=== PATIENT | male | born 1970 | race Caucasian/White ===

== ENCOUNTER 2017-03-03 19:18 | Inpatient (IN) | payer MEDICARE, OTHER ==
[~2017-03-03] VITALS: Ht 167.6 cm; Wt 105.5 kg
[~2017-03-03 19:18] MED LIST: ACET325T45 PO; CALC667T2 PO; CARV12.598 PO; CLON0.2T5 PO; DIPH1TAB25 PO; FOSR500 PO; LABE100T3 PO; NEPH PO; NOV SC; SEVE800T10 PO
[2017-03-03 20:29] LABS: ADD SCAN DIFF NO
[2017-03-03 20:30] LABS: BASOPHILS % 0.1 % (0.0-2.0); EOSINOPHILS # 0.3 10^3/ul (0.0-0.5); EOSINOPHILS % 4.2 % (0.0-7.0); HEMATOCRIT 32.3 % (42.0-52.0); HEMOGLOBIN 10.5 g/dl (14.0-18.0); LYMPHOCYTES # 1.1 10^3/ul (0.8-2.9); LYMPHOCYTES % 16.6 % (15.0-51.0); MEAN CORPUSCULAR HEMOGLOBIN 31.6 pg (29.0-33.0); MEAN CORPUSCULAR HGB CONC 32.5 g/dl (32.0-37.0); MEAN CORPUSCULAR VOLUME 97.3 fl (82.0-101.0); MEAN PLATELET VOLUME 10.1 fl (7.4-10.4); MONOCYTE # 0.8 10^3/ul (0.3-0.9); MONOCYTES % 11.5 % (0.0-11.0); NEUTROPHIL # 4.4 10^3/ul (1.6-7.5); NEUTROPHILS % 66.1 % (39.0-77.0); PLATELET COUNT 344 10^3/UL (140-415); RED BLOOD COUNT 3.32 10^6/ul (4.70-6.10); RED CELL DISTRIBUTION WIDTH 13.4 % (11.5-14.5); WHITE BLOOD COUNT 6.7 10^3/ul (4.8-10.8)
[2017-03-03 20:53] LABS: INR 1.05; PROTIME 13.7 Sec (12.2-14.2); PT RATIO 1.1
[2017-03-03 20:58] LABS: ALBUMIN/GLOBULIN RATIO 1.11; CREATININE 12.67 mg/dl (0.61-1.24); TOTAL PROTEIN 9.5 g/dl (6.1-8.1)
[2017-03-03] MEDS ORDERED: NA POLYST SULFON 15 GM/60 ML BTL PO STA (21:22)
[2017-03-03] MEDS ORDERED: NA BICARBONATE 8.4% 50 ML SYG IV STA (21:22)
[2017-03-03] MEDS ORDERED: CA CHLORIDE 10% 10 ML SYRINGE IV STA (21:22)
[2017-03-03] MEDS ORDERED: ALBUTEROL 0.5% (NEB) 2.5 MG/0.5 ML AMP INH STA (21:22)
[2017-03-03] MEDS ORDERED: FUROSEMIDE 40 MG INJ IV STA (21:22)
[2017-03-03] MEDS ORDERED: VANCOMYCIN 1 GM (PMX) 250 ML IVPB STA (21:53)
[2017-03-03] MEDS ORDERED: PIPER-TAZO 3.375 GM IV (PMX) 100 ML IVPB STA (21:53)
[2017-03-03 22:16] LABS: PARTIAL THROMBOPLASTIN TIME 32.7 Sec (25.0-35.0)
--- NOTE | 2017-03-03 22:35 | RADRPT ---
PROCEDURE: XR Right Tibia and Fibula. CLINICAL INDICATION: Right lower leg pain. Ulcer of the lateral malleolus. TECHNIQUE: Two views. Frontal and lateral. COMPARISON: No prior studies are available for comparison. FINDINGS: There is no fracture or dislocation. There is soft tissue swelling overlying the lateral malleolus with an ulcer noted at this site. Ext ensive vascular calcifications are present consistent with atherosclerosis. Articular surfaces are intact. There is a plantar calcaneal spur. There is no lytic or blastic lesion. There is no radiopaque foreign body. IMPRESSION: 1. Soft tissue swelling overlying the lateral malleolus with ulcer at this site. 2. Atherosclerosis. 3. Plantar calcaneal spur. 4. No fracture or lytic lesion. RPTAT: QQ .Selvin Baca MD, Date Time Electronically viewed and signed by .Selvin Baca MD, on 03/03/2017 22:35 .R/
[2017-03-03] MEDS ORDERED: INSULIN LISPRO 100 UNIT/ML VIAL SC ONE (23:45)
--- NOTE | 2017-03-03 23:45 | ERA ---
ER Documentation Chief Complaint Date/Time DATE: 03/03/17 TIME: 23:35 Chief Complaint wound check on R ankle, just DC from [facility] today HPI This is a 46-year-old male with a known history of end-stage renal disease on hemodialysis every Tuesday and Tuesday. The patient was discharged several hours ago from [facility] where he had been admitted for 4 days to treat a diabetic ulcer of his right lower extremity. He been discharged with instructions to receive 500 mg of vancomycin p.o. during dialysis until March 21, 2017. However his became very concerned after his discharge, as as soon as the patient got home, she noticed that there appeared to be increasing redness over the ulcer on the right lower extremity with purulent drainage. The patient stated he felt weak with palpitations. The patient makes very little urine but has not experience any fever shaking or chills and denied any shortness of breath at rest or exertion. His engravings polisher is Dr. Macias. The patient has a left upper extremity AV shunt and his last full run of dialysis was yesterday. He denies any chest pressure that radiates to the neck arm back or jaw. His primary care physician is Dr. Oh GUPTA All systems reviewed and are negative except as per history of present illness. Medications Home Meds Reported Medications Calcium Acetate* (Phoslo*) 667 Mg Tablet, 1334 MG PO WITH MEALS, TAB 02/10/15 Insulin Aspart* (Novolog Insulin Vial*) 100 U/Ml Vial, 0 SC SLIDING SCALE AC, VIAL 02/10/15 Diphenoxylate Hcl-Atropine* (Lomotil*) 1 Tab Tab, 1 TAB PO Q6H Y for DIARRHEA, TAB 02/10/15 Labetalol Hcl* (Labetalol Hcl*) 100 Mg Tablet, 200 MG PO QHS, TAB 02/10/15 Lanthanum Carbonate* (Fosrenol*) 500 Mg Tab.chew, 500 MG PO BID, TAB.CHEW WITH MEALS 02/10/15 Clonidine Hcl* (Clonidine Hcl*) 0.2 Mg Tablet, 0.2 MG PO BID NEEDED for HTN, TAB 02/10/15 Sevelamer Hcl* (Renagel*) 800 Mg Tablet, 1600 MG PO TID, TAB 02/10/15 Multivit/Ca Carb/B Cmplx/Fa* (Keke-Andi*) 1 Tab Tab, 1 TAB PO DAILY, TAB 02/10/15 Carvedilol* (Coreg*) 12.5 Mg Tablet, 12.5 MG PO BID, TAB 02/10/15 Acetaminophen* (Acetaminophen*) 325 Mg Tablet, 325 MG PO Q4H Y for PAIN AND OR ELEVATED TEMP, TAB 02/10/15 Allergies Allergies: Coded Allergies: No Known Allergies (Unverified Allergy, Unknown, 03/03/17) PMhx/Soc Medical and Surgical Hx: pt denies Medical Hx History of Surgery: Yes (eye and foot surgery) Anesthesia Reaction: No Hx Neurological Disorder: No Hx Respiratory Disorders: No Hx Cardiac Disorders: Yes (htn) Hx Psychiatric Problems: No Hx Miscellaneous Medical Probl: Yes (obesity) Hx Alcohol Use: No Hx Substance Use: No Hx Tobacco Use: No Smoking Status: Never smoker Physical Exam Vitals Vital Signs Date Time Temp Pulse Resp B/P Pulse Ox O2 Delivery O2 Flow Rate FiO2 03/03/17 23:03 60 16 96 21 03/03/17 19:24 98.5 67 20 106/57 94 Physical Exam Constitutional:Well-developed. Well-nourished. HEENT:Normocephalic. Atraumatic.Pupils were equal round reactive to light. Moist mucous membranes.No tonsillar exudates. Neck: No nuchal rigidity. No lymphadenopathy. No posterior cervical spine tenderness or step-offs. Respiratory: Not using accessory muscles of respiration.Lungs were clear to auscultation bilaterally. No rhonchi. No rales. No wheezing. Cardiovascular: Regular rate regular rhythm.No murmurs. No rubs were appreciated.S1, S2 normal. Distal pulses are palpable 2+ bilaterally. GI: Abdomen was soft. Nontender. Non Distended. No pulsatile abdominal masses or bruits. No rebound. No guarding. Bowel sounds were present and normal. Muscle skeletal: Full range of motion of both the upper and lower extremities bilaterally.Normal muscle tone.No assymetrical calf tenderness or swelling. Positive thrill and bruit of the left upper extremity. Skin: No petechia, no purpura. No lesions on the palms or the soles of the feet. No maculopapular rash. Well-circumscribed area of erythremia 5 x 4 cm over the right lateral malleolus with purulent drainage over the malleolus no fluctuance no induration no subcutaneous emphysema with no chronic tissue specifically over the malleolus on the right lateral aspect. Pain not out of proportion to physical exam. NEURO: Patient was alert, awake, orientated x3.No facial droop. Gait observed and normal with no ataxia.Speech had regular rate and rhythm. No focal neurological deficits. Result Diagram: 03/03/17201103/03/172011 Results 24 hrs Laboratory Tests Test 03/03/17 20:12 White Blood Count 6.710^3/ul Red Blood Count 3.3210^6/ul Hemoglobin 10.5g/dl Hematocrit 32.3% Mean Corpuscular Volume 97.3fl Mean Corpuscular Hemoglobin 31.6pg Mean Corpuscular Hemoglobin Concent 32.5g/dl Red Cell Distribution Width 13.4% Platelet Count 14962^3/UL Mean Platelet Volume 10.1fl Neutrophils % 66.1% Lymphocytes % 16.6% Monocytes % 11.5% Eosinophils % 4.2% Basophils % 0.1% Nucleated Red Blood Cells % 0.0/100WBC Neutrophils # 4.410^3/ul Lymphocytes # 1.110^3/ul Monocytes # 0.810^3/ul Eosinophils # 0.310^3/ul Basophils # 0.010^3/ul Nucleated Red Blood Cells # 0.010^3/ul Prothrombin Time 13.7Sec Prothrombin Time Ratio 1.1 INR International Normalized Ratio 1.05 Activated Partial Thromboplast Time 32.7Sec Sodium Level 129mmol/L Potassium Level 6.0mmol/L Chloride Level 83mmol/L Carbon Dioxide Level 31mmol/L Anion Gap 21 Blood Urea Nitrogen 66mg/dl Creatinine 12.67mg/dl Glucose Level 226mg/dl Calcium Level 10.0mg/dl Total Bilirubin 0.0mg/dl Direct Bilirubin 0.00mg/dl Indirect Bilirubin 0.0mg/dl Aspartate Amino Transf (AST/SGOT) 23IU/L Alanine Aminotransferase (ALT/SGPT) 35IU/L Alkaline Phosphatase 130IU/L Troponin I < 0.012ng/ml Total Protein 9.5g/dl Albumin 5.0g/dl Globulin 4.50g/dl Albumin/Globulin Ratio 1.11 Current Medications Medications (Trade) Dose Ordered Sig/Kait Route PRN Reason Start Time Stop Time Status Last Admin Dose Admin Furosemide (Lasix) 40 mg ONCE STAT IV 03/03/17 21:22 03/03/17 21:26 DC 03/03/17 22:53 Sodium Polystyrene Sulfonate (Kayexalate) 30 gm ONCE STAT PO 03/03/17 21:22 03/03/17 21:26 DC 03/03/17 22:54 Albuterol (Proventil 0.5% (Neb)) 15 mg ONCE STAT INH 03/03/17 21:22 03/03/17 21:26 DC 03/03/17 23:02 Sodium Bicarbonate (Na Bicarb 8.4% Syg) 50 ml ONCE STAT IV 03/03/17 21:22 03/03/17 21:26 DC 03/03/17 22:48 Calcium Chloride 1000 mg 1,000 mg ONCE STAT IV 03/03/17 21:22 03/03/17 21:26 DC 03/03/17 22:48 Vancomycin HCl 250 ml @ 125 mls/hr ONCE STAT IVPB 03/03/17 21:53 03/03/17 23:52 Piperacillin Sod/ Tazobactam Sod (Zosyn 3.375gm/ 100 ml (Pmx)) 100 ml @ 100 mls/hr ONCE STAT IVPB 03/03/17 21:53 03/03/17 22:52 DC 03/03/17 22:49 Procedures/MDM The patient presented to the emergency department with a spreading erythematous superficial infection of the skin and subcutaneous tissues. My differential diagnosis included but was not limited to necrotizing fasciitis, lymphangitis, thrombophlebitis, deep vein thrombosis, allergic reaction, neoplasm, gout or abscess. Predisposing factors of the progressive spread of erythema, warmth, pain and tenderness was considered such as lymphedema, tinea pedis, open wounds, prior trauma or surgery, pre-existing skin lesion (furuncle), retained foreign body, injection drug use or vascular or immune compromise. The patient was placed on antibiotics to cover Staphylococcus aureus, including resistant strains such as community-acquired methicillin-resistant S. aureus which included vancomycin and IV Zosyn. The patient did appear to have a diabetic ulcer with no evidence of necrotizing fasciitis. This had been treated at [facility] but the patient had worsening of his condition upon discharge with hyperkalemia of a potassium of 6.0. This was treated with an amp of bicarb, calcium chloride, and nebulizer treatment of albuterol Lasix and Kayexalate. I obtained a 12-lead EKG tracing ordered and reviewed by myself which showed no evidence of peaked T waves. 12 Lead EKG tracing ordered and reviewed by myself showed: Sinus bradycardia 59 bpm and no arrhythmia. WA interval prolonged in all leads at 212 ms consistent with a first-degree AV block QRS duration normal. No ST segment elevation No ST segment depression. No changes consistent with acute ischemia. I obtained radiographic imaging of the patient's right lower extremity which indicated the following read by the radiologist and myself: 1. Soft tissue swelling overlying the lateral malleolus with ulcer at this site. 2. Atherosclerosis. 3. Plantar calcaneal spur. 4. No fracture or lytic lesion. The patient had hyponatremia. The patient also had hyperglycemia without ketosis. The patient received subcutaneous insulin I spoke with Dr. Mendoza who is taking call for Dr. Casiano and he kindly stated he will admit the patient to undergo emergent hemodialysis and continuation of IV antibiotics for the patient's cellulitis and diabetic ulcer of the right lower extremity. The patient will be admitted to the telemetry service with an anticipated stay of greater than 2 midnights Departure Diagnosis: Primary Impression: Cellulitis Qualified Code: L03.115 - Cellulitis of right lower extremity Additional Impressions: Hyperkalemia Acute renal failure (ARF) Qualified Code: N17.9 - Acute renal failure, unspecified acute renal failure type Condition: Serious YARELI MOSS Mar 03, 2017 23:45
[2017-03-04] VITALS (13 sets, daily range): BP systolic 110–202; BP diastolic 45–79; PULSE 60–69; RESP 16–18; TEMP 97.6; Ht 167.6 cm; Wt 105.5 kg
[2017-03-04] MEDS ORDERED: NACL 0.9% 3 ML SYG IV SCH
[2017-03-04] MEDS ORDERED: ONDANSETRON 4 MG INJ IV PRN
[2017-03-04] MEDS ORDERED: VANCOMYCIN IV PER PHARMACY XX SCH
[2017-03-04] MEDS ORDERED: VANCOMYCIN 1 GM in NS 250 ML IVPB ONE (03:00)
[2017-03-04] MEDS: HEPARIN 5,000 UNIT/0.5 ML VIAL SC SCH ×3 (05:29→20:34)
[2017-03-04] MEDS: FAMOTIDINE 20 MG INJ IV SCH (08:15)
[2017-03-04 12:11] LABS: ADD SCAN DIFF NO
[2017-03-04 12:13] LABS: BASOPHILS % 0.1 % (0.0-2.0); EOSINOPHILS # 0.3 10^3/ul (0.0-0.5); EOSINOPHILS % 4.9 % (0.0-7.0); HEMATOCRIT 31.8 % (42.0-52.0); HEMOGLOBIN 10.7 g/dl (14.0-18.0); LYMPHOCYTES # 1.2 10^3/ul (0.8-2.9); LYMPHOCYTES % 17.7 % (15.0-51.0); MEAN CORPUSCULAR HEMOGLOBIN 32.3 pg (29.0-33.0); MEAN CORPUSCULAR HGB CONC 33.6 g/dl (32.0-37.0); MEAN CORPUSCULAR VOLUME 96.1 fl (82.0-101.0); MEAN PLATELET VOLUME 9.2 fl (7.4-10.4); MONOCYTE # 0.8 10^3/ul (0.3-0.9); MONOCYTES % 10.9 % (0.0-11.0); NEUTROPHIL # 4.5 10^3/ul (1.6-7.5); NEUTROPHILS % 65.2 % (39.0-77.0); PLATELET COUNT 321 10^3/UL (140-415); RED BLOOD COUNT 3.31 10^6/ul (4.70-6.10); RED CELL DISTRIBUTION WIDTH 13.5 % (11.5-14.5); WHITE BLOOD COUNT 6.9 10^3/ul (4.8-10.8)
[2017-03-04 12:38] LABS: ALBUMIN 4.8 g/dl (3.3-4.9); ALBUMIN/GLOBULIN RATIO 1.29; CALCIUM 9.6 mg/dl (8.4-10.2); CREATININE 13.61 mg/dl (0.61-1.24); TOTAL PROTEIN 8.5 g/dl (6.1-8.1)
[2017-03-04 13:23] LABS: POTASSIUM 5.5 mmol/L (3.5-5.1)
--- NOTE | 2017-03-04 14:12 | HP ---
Date/Time of Note Date/Time of Note DATE: 03/04/17 TIME: 13:51 Assessment/Plan VTE Prophylaxis VTE Prophylaxis Intervention: SCD's Assessment/Plan Assessment/Plan -Right lower extremity cellulitis, start patient on broad-spectrum antibiotics, Dr. Tirado will be following from infectious disease standpoint. Dr. Douglass will be following from podiatry standpoint. Dr. Jay is asked to see patient in vascular surgery consultation. -End-stage renal disease on hemodialysis 4 times a week, Dr. De Santiago is following in nephrology consultation. -Hyperkalemia secondary to end-stage renal disease. -Diabetes mellitus type 2, continue Lantus and NovoLog. -Hypertension, continue Coreg and clonidine. Further recommendations based on clinical course. Plan of care discussed with Dr. Casiano. HPI/ROS Admit Date/Time Admit Date/Time Hx of Present Illness The patient is 46-year-old gentleman with end-stage renal disease on hemodialysis Tuesday and Tuesday, diabetes, hypertension. The patient did develop diabetic ulcer of the right lower extremities and was seen at the other hospital and was discharged with p.o. antibiotics. Patient noticed increasing redness tenderness and purulent discharge from the wound and presented to the [facility] emergency room. Patient with extensive history of a left foot ulcer status post multiple vascular surgeries in the past. Patient denies any fever chills, denies any nausea vomiting denies any chest pain denies any shortness of breath. Patient is due for hemodialysis today usually follow-up with Dr. De Santiago from nephrology standpoint. ROS 12 point review of systems is negative unless mentioned in HPI PMH/Family/Social Past Medical History Medical History: diabetes, hypertension, renal disease Past Surgical History Status post left foot surgery , LUE AV fistula surgery, I and D of scapular abscess. Family History Significant Family History: heart disease, diabetes Social History Alcohol Use: none Smoking Status: Never smoker Drug Use: none Exam/Review of Systems Vital Signs Vitals Vital Signs Date Time Temp Pulse Resp B/P Pulse Ox O2 Delivery O2 Flow Rate FiO2 03/04/17 11:21 98.5 84 16 178/66 99 Room Air 03/03/17 23:03 21 Exam Constitutional: alert Head: atraumatic, normocephalic Neck: non-tender, supple Respiratory: normal air movement Cardiovascular: nl pulses Gastrointestinal: non-tender, soft Musculoskeletal: nl extremities to inspection Extremities: normal pulses, other (Left upper extremity AV fistula) Neurological: nl mental status Skin: other (Right calcaneus wound with necrotic center) Labs Result Diagram: 03/04/17 1200 03/04/17 1200 Medications Medications Current Medications Ondansetron HCl (Zofran Inj) 4 mg Q6H PRN IV NAUSEA AND/OR VOMITING; Start at 00:00 Morphine Sulfate (morphine) 2 mg Q4H PRN IV SEVERE PAIN LEVEL 7-10; Start 03/04 at 00:00 Famotidine (Pepcid Iv) 20 mg DAILY IV Last administered on 03/04/17 08:15; Admin Dose 20 MG; Start 03/04/17 at 09:00 Heparin Sodium (Porcine) (Heparin (5000 Units/0.5 ml)) 5,000 unit Q8 SC Last administered on 03/04/17 05:29; Admin Dose 5,000 UNIT; Start 03/04/17 at 06:00 CHARLINE ALMENDAREZ Mar 04, 2017 14:04
[2017-03-04] MEDS ORDERED: ACETAMINOPHEN 325 MG TAB PO PRN (14:30)
--- NOTE | 2017-03-04 16:38 | CONS ---
Date/Time of Note Date/Time of Note DATE: 03/04/17 TIME: 16:34 Assessment/Plan Assessment/Plan Additional Assessment/Plan 1) Right lower extremity cellulitis 2) End-stage renal disease on hemodialysis 3) Hyperkalemia 4) Diabetes mellitus 5) Chronic Hypertension Cont maintenance HD Schedule 4x week HD ordered for today and tomorrow Electrolyte abnormality will correct with HD Dose IV ABx to ESRD Thank you for the opportunity to participate in the care of Mr Mata. Consultation Date/Type/Reason Admit Date/Time Date of Consultation: Mar 04, 2017 Type of Consultation: Renal Reason for Consultation ESRD Referring Provider: SAVANNAH ANDREWS MD Hx of Present Illness 46-year-old gentleman with end-stage renal disease on hemodialysis Tuesday and Tuesday, Last HD Tuesday, history of diabetes and hypertension. Patient noticed increasing redness tenderness and purulent discharge from the wound and presented to the [facility] emergency room. Nephrology consulted for ESRD, patient is due for HD today Past Medical History Medical History: diabetes, hypertension, renal disease Past Surgical History Past Surgical Hx: other (AVF) Family History Significant Family History: no pertinent family hx Social History Alcohol Use: none Smoking Status: Never smoker Drug Use: none Exam/Review of Systems Vital Signs Vitals Vital Signs Date Time Temp Pulse Resp B/P Pulse Ox O2 Delivery O2 Flow Rate FiO2 03/04/17 15:35 64 16 169/81 03/04/17 11:21 98.5 99 Room Air 03/03/17 23:03 21 Exam Constitutional: alert, oriented, No distress Eyes: EOMI, nl conjunctiva ENMT: mucosa pink and moist Neck: No jvd Respiratory: clear to auscultation Cardiovascular: edema (trace), regular rate and rhythm Gastrointestinal: non-tender, soft, No rebound or guarding Neurological: [employer] II-XII intact, nl mental status, nl speech, No confused, No lethargic Skin: No diaphoresis Results Result Diagram: 03/04/17 1200 03/04/17 1200 Results 24 hrs Laboratory Tests Test 03/03/17 20:12 03/04/17 00:42 03/04/17 11:50 03/04/17 12:00 White Blood Count 6.7 # 6.9 Red Blood Count 3.32 L 3.31 L Hemoglobin 10.5 L 10.7 L Hematocrit 32.3 L 31.8 L Mean Corpuscular Volume 97.3 96.1 Mean Corpuscular Hemoglobin 31.6 32.3 Mean Corpuscular Hemoglobin Concent 32.5 33.6 Red Cell Distribution Width 13.4 13.5 Platelet Count 344 321 Mean Platelet Volume 10.1 9.2 Neutrophils % 66.1 65.2 Lymphocytes % 16.6 17.7 Monocytes % 11.5 H 10.9 Eosinophils % 4.2 4.9 Basophils % 0.1 0.1 Nucleated Red Blood Cells % 0.0 0.0 Neutrophils # 4.4 4.5 Lymphocytes # 1.1 1.2 Monocytes # 0.8 0.8 Eosinophils # 0.3 0.3 Basophils # 0.0 0.0 Nucleated Red Blood Cells # 0.0 0.0 Prothrombin Time 13.7 Prothrombin Time Ratio 1.1 INR International Normalized Ratio 1.05 Activated Partial Thromboplast Time 32.7 Sodium Level 129 L 134 L Potassium Level 6.0 H 5.5 H Chloride Level 83 L 90 L Carbon Dioxide Level 31 28 Anion Gap 21 H 22 H Blood Urea Nitrogen 66 H 72 H Creatinine 12.67 H 13.61 H Glucose Level 226 H 185 Calcium Level 10.0 9.6 Total Bilirubin 0.0 L 0.0 L Direct Bilirubin 0.00 0.00 Indirect Bilirubin 0.0 0.0 Aspartate Amino Transf (AST/SGOT) 23 27 Alanine Aminotransferase (ALT/SGPT) 35 34 Alkaline Phosphatase 130 H 121 Troponin I < 0.012 Total Protein 9.5 H 8.5 H Albumin 5.0 H 4.8 Globulin 4.50 H 3.70 H Albumin/Globulin Ratio 1.11 1.29 Bedside Glucose 169 Hemoglobin A1c 8.1 H Medications Medications Current Medications Ondansetron HCl (Zofran Inj) 4 mg Q6H PRN IV NAUSEA AND/OR VOMITING; Start at 00:00 Morphine Sulfate (morphine) 2 mg Q4H PRN IV SEVERE PAIN LEVEL 7-10; Start 03/04 at 00:00 Famotidine (Pepcid Iv) 20 mg DAILY IV Last administered on 03/04/17t 08:15; Admin Dose 20 MG; Start 03/04/17 at 09:00 Heparin Sodium (Porcine) (Heparin (5000 Units/0.5 ml)) 5,000 unit Q8 SC Last administered on 03/04/17t 15:34; Admin Dose 5,000 UNIT; Start 03/04/17 at 06:00 Acetaminophen (Tylenol Tab) 325 mg Q4H PRN PO PAIN AND OR ELEVATED TEMP; Start 03/04/17 at 14:30 Carvedilol (Coreg) 12.5 mg BID PO ; Start 03/04/17 at 21:00 Labetalol HCl (Normodyne) 200 mg QHS PO ; Start 03/04/17 at 21:00 Multivit/Ca Carb/ B Cmplx/FA/Prenat (Keke-Andi) 1 tab DAILY PO ; Start 03/05/17 at 09:00 ADAM DUVAL MD Mar 04, 2017 16:38
--- NOTE | 2017-03-04 17:08 | CONS ---
Date/Time of Note Date/Time of Note DATE: 03/04/17 TIME: 17:07 Consultation Date/Type/Reason Admit Date/Time Reason for Consultation This is Dr. David Norris dictating infectious disease consult on Leonel HERNANDEZ, date of admission 03/03/2017, date of consultation and dictation , reason for consultation is antibiotic management. Patient is a 46-year-old male with a history of adult onset diabetes mellitus, hypertension, and end-stage renal disease on hemodialysis. Patient presents with right lower extremity cellulitis. On admission his white count was 6.9 H&H of 10.7 and 31.8 platelet count of 321,000, BUN/creatinine 72/ 13.6. The patient developed a diabetic ulcer on his right lower extremity, was seen at another hospital and discharged on oral antibiotics. He developed increased redness tenderness and purulent discharge from the wound. He has an extensive history of left foot ulcer, status post multiple vascular surgeries in the past. He denies fever chills nausea or vomiting. Patient is being seen by Dr. Torres for renal care. Past medical history as outlined. Past surgical history: AV fistula Family history noncontributory Social history: He does not smoke drink or abuse drugs Allergy: None to penicillin sulfa foods Medications per chart Review of systems is as per HPI On physical examination patient is awake responsive in no acute distress. Vital signs are stable, he is afebrile SHEENT: Within normal limits Neck is supple, lymph nodes nonpalpable. Chest clear to P&A Heart without murmur gallop Abdomen is soft nontender, without organosplenomegaly or masses. Extremities: Right lower extremity, calcaneus wound with necrotic center, redness tenderness and purulent discharge. Left upper extremity AV fistula. Neurological exam: No focal neurological abnormality. Ancillary laboratory data: X-ray of right tibia and fibula do not show fractures or lytic lesions or osteomyelitis. There is soft tissue swelling overlying the lateral malleolus with ulcer at that site. Wound culture is pending. White count today is 6.9. Patient was given vancomycin and Zosyn in the emergency room and should be continued on this regimen. I will dictate my findings to Dr. Chilel and to the consultants. Thank you for this golf ball marker. Past Medical History Medical History: diabetes, hypertension, renal disease Past Surgical History Past Surgical Hx: other (AVF) Social History Alcohol Use: none Smoking Status: Never smoker Drug Use: none Exam/Review of Systems Vital Signs Vitals Vital Signs Date Time Temp Pulse Resp B/P Pulse Ox O2 Delivery O2 Flow Rate FiO2 03/04/17 15:35 64 16 169/81 03/04/17 11:21 98.5 99 Room Air 03/03/17 23:03 21 Results Result Diagram: 03/04/17 1200 03/04/17 1200 Results 24 hrs Laboratory Tests Test 03/03/17 20:12 03/04/17 00:42 03/04/17 11:50 03/04/17 12:00 White Blood Count 6.7 # 6.9 Red Blood Count 3.32 L 3.31 L Hemoglobin 10.5 L 10.7 L Hematocrit 32.3 L 31.8 L Mean Corpuscular Volume 97.3 96.1 Mean Corpuscular Hemoglobin 31.6 32.3 Mean Corpuscular Hemoglobin Concent 32.5 33.6 Red Cell Distribution Width 13.4 13.5 Platelet Count 344 321 Mean Platelet Volume 10.1 9.2 Neutrophils % 66.1 65.2 Lymphocytes % 16.6 17.7 Monocytes % 11.5 H 10.9 Eosinophils % 4.2 4.9 Basophils % 0.1 0.1 Nucleated Red Blood Cells % 0.0 0.0 Neutrophils # 4.4 4.5 Lymphocytes # 1.1 1.2 Monocytes # 0.8 0.8 Eosinophils # 0.3 0.3 Basophils # 0.0 0.0 Nucleated Red Blood Cells # 0.0 0.0 Prothrombin Time 13.7 Prothrombin Time Ratio 1.1 INR International Normalized Ratio 1.05 Activated Partial Thromboplast Time 32.7 Sodium Level 129 L 134 L Potassium Level 6.0 H 5.5 H Chloride Level 83 L 90 L Carbon Dioxide Level 31 28 Anion Gap 21 H 22 H Blood Urea Nitrogen 66 H 72 H Creatinine 12.67 H 13.61 H Glucose Level 226 H 185 Calcium Level 10.0 9.6 Total Bilirubin 0.0 L 0.0 L Direct Bilirubin 0.00 0.00 Indirect Bilirubin 0.0 0.0 Aspartate Amino Transf (AST/SGOT) 23 27 Alanine Aminotransferase (ALT/SGPT) 35 34 Alkaline Phosphatase 130 H 121 Troponin I < 0.012 Total Protein 9.5 H 8.5 H Albumin 5.0 H 4.8 Globulin 4.50 H 3.70 H Albumin/Globulin Ratio 1.11 1.29 Bedside Glucose 169 Hemoglobin A1c 8.1 H Medications Medications Current Medications Ondansetron HCl (Zofran Inj) 4 mg Q6H PRN IV NAUSEA AND/OR VOMITING; Start at 00:00 Morphine Sulfate (morphine) 2 mg Q4H PRN IV SEVERE PAIN LEVEL 7-10; Start 03/04 at 00:00 Famotidine (Pepcid Iv) 20 mg DAILY IV Last administered on 03/04/17 08:15; Admin Dose 20 MG; Start 03/04/17 at 09:00 Heparin Sodium (Porcine) (Heparin (5000 Units/0.5 ml)) 5,000 unit Q8 SC Last administered on 03/04/17 15:34; Admin Dose 5,000 UNIT; Start 03/04/17 at 06:00 Acetaminophen (Tylenol Tab) 325 mg Q4H PRN PO PAIN AND OR ELEVATED TEMP; Start 03/04/17 at 14:30 Carvedilol (Coreg) 12.5 mg BID PO ; Start 03/04/17 at 21:00 Labetalol HCl (Normodyne) 200 mg QHS PO ; Start 03/04/17 at 21:00 Multivit/Ca Carb/ B Cmplx/FA/Prenat (Keke-Andi) 1 tab DAILY PO ; Start 03/05/17 at 09:00 DAVID NORRIS MD Mar 04, 2017 17:08
[2017-03-04] MEDS: SEVELAMER 800 MG TAB PO SCH (18:49)
[2017-03-04] MEDS: CALCIUM ACETATE 667 MG CAP PO SCH (18:49)
[2017-03-05] VITALS (14 sets, daily range): BP systolic 109–164; BP diastolic 49–77; PULSE 65–74; RESP 16–20
[2017-03-05] MEDS: ERTAPENEM SODIUM 0.5 GM in SOD CHLORIDE 0.9% 100 ML IVPB SCH ×2 (01:27→22:05)
[2017-03-05] MEDS: LABETALOL 100 MG TAB PO SCH ×2 (01:28→22:05)
[2017-03-05] MEDS: morphine 2 MG INJ IV PRN (03:14)
[2017-03-05] MEDS: HEPARIN 5,000 UNIT/0.5 ML VIAL SC SCH ×3 (05:47→22:02)
[2017-03-05] MEDS: FAMOTIDINE 20 MG INJ IV SCH (08:24)
[2017-03-05] MEDS: CALCIUM ACETATE 667 MG CAP PO SCH ×3 (08:24→17:12)
[2017-03-05] MEDS: SEVELAMER 800 MG TAB PO SCH ×3 (08:25→17:12)
[2017-03-05] MEDS: MULTIVIT/CA CARB/B CMPLX/FA TAB PO SCH (08:25)
[2017-03-05 08:31] LABS: ADD SCAN DIFF NO
[2017-03-05 08:54] LABS: BASOPHILS % 0.3 % (0.0-2.0); EOSINOPHILS # 0.3 10^3/ul (0.0-0.5); EOSINOPHILS % 4.7 % (0.0-7.0); HEMATOCRIT 32.7 % (42.0-52.0); HEMOGLOBIN 10.6 g/dl (14.0-18.0); LYMPHOCYTES # 1.4 10^3/ul (0.8-2.9); MEAN CORPUSCULAR HEMOGLOBIN 31.5 pg (29.0-33.0); MEAN CORPUSCULAR HGB CONC 32.4 g/dl (32.0-37.0); MEAN PLATELET VOLUME 9.9 fl (7.4-10.4); MONOCYTE # 0.7 10^3/ul (0.3-0.9); MONOCYTES % 10.1 % (0.0-11.0); NEUTROPHIL # 4.7 10^3/ul (1.6-7.5); NEUTROPHILS % 64.7 % (39.0-77.0); PLATELET COUNT 336 10^3/UL (140-415); RED BLOOD COUNT 3.37 10^6/ul (4.70-6.10); RED CELL DISTRIBUTION WIDTH 13.7 % (11.5-14.5); WHITE BLOOD COUNT 7.2 10^3/ul (4.8-10.8)
[2017-03-05] MEDS ORDERED: ERTAPENEM SODIUM 1 GM in SOD CHLORIDE 0.9% 100 ML IVPB SCH (09:00)
[2017-03-05 09:07] LABS: CALCIUM 9.6 mg/dl (8.4-10.2); CREATININE 10.72 mg/dl (0.61-1.24); POTASSIUM 4.5 mmol/L (3.5-5.1)
--- NOTE | 2017-03-05 09:13 | PN ---
Date/Time of Note Date/Time of Note DATE: 03/05/17 TIME: 09:11 Assessment/Plan VTE Prophylaxis VTE Prophylaxis Intervention: other Assessment/Plan Assessment/Plan 1) Right lower extremity cellulitis 2) End-stage renal disease on hemodialysis 3) Hyperkalemia 4) Diabetes mellitus 5) Chronic Hypertension Cont maintenance HD Schedule 4x week HD ordered for today and tomorrow Electrolyte abnormality will correct with HD Dose IV ABx to ESRD [id number] no change cont plan mwf hd Exam/Review of Systems Vital Signs Vitals Vital Signs Date Time Temp Pulse Resp B/P Pulse Ox O2 Delivery O2 Flow Rate FiO2 03/05/17 08:24 66 03/05/17 07:33 98.5 18 161/77 98 03/04/17 17:55 Room Air 03/03/17 23:03 21 Intake and Output 03/04/17 03/04/17 03/05/17 14:59 22:59 06:59 Intake Total 800 ml Output Total 3200 ml Balance -2400 ml Exam Constitutional: alert, oriented Psych: no complaints Head: normocephalic Eyes: nl conjunctiva ENMT: nl external ears & nose Neck: non-tender, supple Respiratory: clear to auscultation, normal air movement Cardiovascular: nl pulses, regular rate and rhythm Gastrointestinal: nl liver, spleen, non-tender, soft Musculoskeletal: other Results Result Diagram: 03/05/17 0816 03/04/17 1200 Results 24 hrs Laboratory Tests Test 03/04/17 11:50 03/04/17 12:00 03/05/17 08:16 Hemoglobin A1c 8.1 H White Blood Count 6.9 7.2 Red Blood Count 3.31 L 3.37 L Hemoglobin 10.7 L 10.6 L Hematocrit 31.8 L 32.7 L Mean Corpuscular Volume 96.1 97.0 Mean Corpuscular Hemoglobin 32.3 31.5 Mean Corpuscular Hemoglobin Concent 33.6 32.4 Red Cell Distribution Width 13.5 13.7 Platelet Count 321 336 Mean Platelet Volume 9.2 9.9 Neutrophils % 65.2 64.7 Lymphocytes % 17.7 19.0 Monocytes % 10.9 10.1 Eosinophils % 4.9 4.7 Basophils % 0.1 0.3 Nucleated Red Blood Cells % 0.0 0.0 Neutrophils # 4.5 4.7 Lymphocytes # 1.2 1.4 Monocytes # 0.8 0.7 Eosinophils # 0.3 0.3 Basophils # 0.0 0.0 Nucleated Red Blood Cells # 0.0 0.0 Sodium Level 134 L Potassium Level 5.5 H Chloride Level 90 L Carbon Dioxide Level 28 Anion Gap 22 H Blood Urea Nitrogen 72 H Creatinine 13.61 H Glucose Level 185 Calcium Level 9.6 Total Bilirubin 0.0 L Direct Bilirubin 0.00 Indirect Bilirubin 0.0 Aspartate Amino Transf (AST/SGOT) 27 Alanine Aminotransferase (ALT/SGPT) 34 Alkaline Phosphatase 121 Total Protein 8.5 H Albumin 4.8 Globulin 3.70 H Albumin/Globulin Ratio 1.29 Medications Medications Current Medications Ondansetron HCl (Zofran Inj) 4 mg Q6H PRN IV NAUSEA AND/OR VOMITING; Start at 00:00 Morphine Sulfate (morphine) 2 mg Q4H PRN IV SEVERE PAIN LEVEL 7-10 Last administered on 03/05/17 03:14; Admin Dose 2 MG; Start 03/04/17 at 00:00 Famotidine (Pepcid Iv) 20 mg DAILY IV Last administered on 03/05/17 08:24; Admin Dose 20 MG; Start 03/04/17 at 09:00 Heparin Sodium (Porcine) (Heparin (5000 Units/0.5 ml)) 5,000 unit Q8 SC Last administered on 03/05/17 05:47; Admin Dose 5,000 UNIT; Start 03/04/17 at 06:00 Acetaminophen (Tylenol Tab) 325 mg Q4H PRN PO PAIN AND OR ELEVATED TEMP; Start 03/04/17 at 14:30 Carvedilol (Coreg) 12.5 mg BID PO Last administered on 03/05/17 08:25; Admin Dose 12.5 MG; Start 03/04/17 at 21:00 Labetalol HCl (Normodyne) 200 mg QHS PO Last administered on 03/05/17 01:28; Admin Dose 200 MG; Start 03/04/17 at 21:00 Multivit/Ca Carb/ B Cmplx/FA/Prenat 1 tab 1 tab DAILY PO Last administered on 08:25; Admin Dose 1 TAB; Start 03/05/17 at 09:00 Ertapenem/Sodium Chloride (Invanz/NS) 100 ml @ 100 mls/hr Q24H IVPB Last administered on 03/05/17t 01:27; Admin Dose 100 MLS/HR; Start 03/04/17 at 20:00 KAROL MOREAU MD Mar 05, 2017 09:12
--- NOTE | 2017-03-05 15:25 | CONS ---
Date/Time of Note Date/Time of Note DATE: 03/05/17 TIME: 15:23 Assessment/Plan Assessment/Plan Chief Complaint/Hosp Course ID PROGRESS NOTE TOTAL ABX DAY #2 => Vanco IV + Ertapenem 24H INTERVAL SUMMARY * A/A/O -> Patient expresses dissatisfaction -- tells me he was told ID "specialist will see you in the morning" -- came in yesterday afternoon for "a second opinion on how to treat my ankle wound...I've already been seen by specialist at other hospital who put me on IV ABX". * Patient expresses irritability due to inability to shower tells me he is expecting me to come in and wrap his leg wound so he can shower. * Patient was DC'd from [facility] and apparently presented directly to [facility] ED post DC. * No fevers, VSS, NAD, WBC normal * MICRO: BCx (-); RLEXT wound Cx: Kym: 03/03/17-2034 * GRAM STAIN Final POLYMORPH. LEUKOCYTE NONE SEEN / NO ORGANISM SEEN * WOUND CULTURE Preliminary NO GROWTH AFTER 2 DAYS * RLEXT X-Ray RLEXT X-Ray IMPRESSION: 1. Soft tissue swelling overlying the lateral malleolus with ulcer at this site. 2. Atherosclerosis. 3. Plantar calcaneal spur. 4. No fracture or lytic lesion. PHYSICAL EXAMINATION: GENERAL: VSS, NAD, no fevers HEENT: Unremarkable, NECK: Supple,full ROM CHEST: Equal chest rise bilaterally, without dyspnea on observation HEART: Pulse RRR ABDOMEN: Soft, nontender EXTREMITIES: Warm, RLEXT erythema, open wound lateral malleolus SKIN: Warm, dry ID ASSESSMENT: 46 yo M admitted with: 1. Right lower extremity cellulitis w/right lateral malleolus diabetic ulcer => hx of failed OP PO ABX treatment 2. PAD -> RLEXT peripheral atherosclerosis on X-fay * Patient with 3+Right dorsalis pedis pulse on palpation = adequate arterial supply 3. Right foot plantar calcaneal spur. 4. Diabetes mellitus type 2 -> A1c 8.1 5. End-stage renal disease on hemodialysis 4 times a week 6. Hx of HTN 7. QUERY PSYCH DX NOS? * Patient extremely irritable with unrealistic expectations of diagnostic evaluation; noncompliance history per notes; hx of "hospital shopping" for second opinions on diabetic foot wound that can be treated on outpatient status. 8. QUERY Malingering ? Suspect patient insisting on 2nd opinion via admission to [facility] post DC from [facility] due to reasons of secondary gain? ? MRSA Nares INVASIVES: * PIV ABX ALLERGIES: KNDA CURRENT ABX: DAY #2 => Vanco IV + Ertapenem ID RECOMMENDATIONS: 1. Continue current ABX 2. Check MRSA Nares 3. f/u on final micro = pending 4. Obtain records from other treating facility = [facility]- Micro results, imaging results, MRI if done. 5. Patient may DC to outpatient [facility] evaluation on the following ABX to be given at HD unit by HD RN: * Vancomycin 1GM IVPB Q96H to be given @ HD unit with continued dose per OP Pharmacy and Amikacin IV post HD dose per pharmacy. 6. PATIENT EDUCATION provided: * Advised the patient that he holds unrealistic expectation that he will receive a <24H 2nd opinion on treatment of his left ankle diabetic ulcer/ cellulitis without affording specialists the opportunity to complete the investigative work up. * I explained to the patient: 1. My apologies that someone told you ID specialist would present in the morning today that was not accurate information ; 2) regardless, the wound cx that ID team needs to provide you with 2nd opinion is not finalized, we have limited information, preliminary wound Cx is negative. 3). X-rays show soft tissue swelling and peripheral arterial disease; 4) your pulse in right foot is very strong; hence, there is no concern for acute arterial blood flow compromise; 5) Regrets, I do not have access to the prior microbiology and any other imaging results from the last hospitalization work-up and opinion from [facility] medical psychotherapist; therefore, [facility] ID team consultants do not know what bacterial pathogens were growing prior to initiation of antibiotics, cultures are frequently negative after patient has been treated with ABX. 6) I do not understand your expectation that specialists give you a second opinion on antibiotic treatment of this wound due to the fact that you are currently on appropriate IV ABX treatment and this infection is related to your poorly controlled diabetes, your A1c level is 8.1 -- perhaps your expectation for "STAT" ID 2nd opinion is unrealistic. * I was able to reassure patient that he is receiving the correct treatment and that "specialists" will need time to give him this 2nd opinion that he is requesting. Certainly, from ID standpoint, he is NOT septic and can be treated at home with IV ABX given at HD unit with outpatient visits to [facility]. * RN has advised patient no shower due to his TELE status; not his uncovered right diabetic ankle wound status. . . Problems: Consultation Date/Type/Reason Admit Date/Time Mar 03, 2017 at 21:28 Initial Consult Date 03/04/17 Type of Consultation: ID Referring Provider: SAVANNAH ANDREWS MD Exam/Review of Systems Vital Signs Vitals Vital Signs Date Time Temp Pulse Resp B/P Pulse Ox O2 Delivery O2 Flow Rate FiO2 03/05/17 12:35 68 03/05/17 11:00 98.2 20 158/62 97 03/04/17 17:55 Room Air 03/03/17 23:03 21 Intake and Output 03/04/17 03/04/17 03/05/17 15:00 23:00 07:00 Intake Total 800 ml Output Total 3200 ml Balance -2400 ml Results Result Diagram: 03/05/17 0816 03/05/17 0816 Results 24 hrs Laboratory Tests Test 03/05/17 08:16 White Blood Count 7.2 Red Blood Count 3.37 L Hemoglobin 10.6 L Hematocrit 32.7 L Mean Corpuscular Volume 97.0 Mean Corpuscular Hemoglobin 31.5 Mean Corpuscular Hemoglobin Concent 32.4 Red Cell Distribution Width 13.7 Platelet Count 336 Mean Platelet Volume 9.9 Neutrophils % 64.7 Lymphocytes % 19.0 Monocytes % 10.1 Eosinophils % 4.7 Basophils % 0.3 Nucleated Red Blood Cells % 0.0 Neutrophils # 4.7 Lymphocytes # 1.4 Monocytes # 0.7 Eosinophils # 0.3 Basophils # 0.0 Nucleated Red Blood Cells # 0.0 Sodium Level 142 Potassium Level 4.5 Chloride Level 89 L Carbon Dioxide Level 30 Anion Gap 28 H Blood Urea Nitrogen 48 #H Creatinine 10.72 #H Glucose Level 207 Calcium Level 9.6 Medications Medications Current Medications Ondansetron HCl (Zofran Inj) 4 mg Q6H PRN IV NAUSEA AND/OR VOMITING; Start at 00:00 Morphine Sulfate (morphine) 2 mg Q4H PRN IV SEVERE PAIN LEVEL 7-10 Last administered on 03/05/17t 03:14; Admin Dose 2 MG; Start 03/04/17 at 00:00 Famotidine (Pepcid Iv) 20 mg DAILY IV Last administered on 03/05/17 08:24; Admin Dose 20 MG; Start 03/04/17 at 09:00 Heparin Sodium (Porcine) (Heparin (5000 Units/0.5 ml)) 5,000 unit Q8 SC Last administered on 03/05/17 05:47; Admin Dose 5,000 UNIT; Start 03/04/17 at 06:00 Acetaminophen (Tylenol Tab) 325 mg Q4H PRN PO PAIN AND OR ELEVATED TEMP; Start 03/04/17 at 14:30 Carvedilol (Coreg) 12.5 mg BID PO Last administered on 03/05/17 08:25; Admin Dose 12.5 MG; Start 03/04/17 at 21:00 Labetalol HCl (Normodyne) 200 mg QHS PO Last administered on 03/05/17 01:28; Admin Dose 200 MG; Start 03/04/17 at 21:00 Multivit/Ca Carb/ B Cmplx/FA/Prenat 1 tab 1 tab DAILY PO Last administered on 08:25; Admin Dose 1 TAB; Start 03/05/17 at 09:00 Ertapenem/Sodium Chloride (Invanz/NS) 100 ml @ 100 mls/hr Q24H IVPB Last administered on 03/05/17 01:27; Admin Dose 100 MLS/HR; Start 03/04/17 at 20:00 PARVIZ RECIO NP Mar 05, 2017 15:25
--- NOTE | 2017-03-05 16:58 | PN ---
Date/Time of Note Date/Time of Note DATE: 03/05/17 TIME: 16:56 Assessment/Plan VTE Prophylaxis VTE Prophylaxis Intervention: other Assessment/Plan Assessment/Plan -Right lower extremity cellulitis, start patient on broad-spectrum antibiotics, Dr. Tirado will be following from infectious disease standpoint. Dr. Douglass will be following from podiatry standpoint. Dr. Jay is asked to see patient in vascular surgery consultation. -End-stage renal disease on hemodialysis 4 times a week, Dr. De Santiago is following in nephrology consultation. -Hyperkalemia secondary to end-stage renal disease. -Diabetes mellitus type 2, continue Lantus and NovoLog. -Hypertension, continue Coreg and clonidine. Further recommendations based on clinical course. Plan of care discussed with Dr. Casiano. Subjective 24 Hr Interval Summary Eyes: no complaints ENT: pain Respiratory: pain Cardiovascular: no complaints Gastrointestinal: no complaints Genitourinary: no complaints Musculoskeletal: bone/joint pain Skin: erythema Psychological: nl mood/affect Exam/Review of Systems Vital Signs Vitals Vital Signs Date Time Temp Pulse Resp B/P Pulse Ox O2 Delivery O2 Flow Rate FiO2 03/05/17 16:29 66 03/05/17 16:03 98.6 19 164/76 96 03/04/17 17:55 Room Air 03/03/17 23:03 21 Intake and Output 03/04/17 03/04/17 03/05/17 14:59 22:59 06:59 Intake Total 800 ml Output Total 3200 ml Balance -2400 ml Exam Constitutional: alert Neck: supple Respiratory: clear to auscultation Cardiovascular: nl pulses, regular rate and rhythm Gastrointestinal: non-tender, soft Extremities: edema, other (RLE - cellulitis) Results Result Diagram: 03/05/17 0816 03/05/17 0816 Results 24 hrs Laboratory Tests Test 03/05/17 08:16 White Blood Count 7.2 Red Blood Count 3.37 L Hemoglobin 10.6 L Hematocrit 32.7 L Mean Corpuscular Volume 97.0 Mean Corpuscular Hemoglobin 31.5 Mean Corpuscular Hemoglobin Concent 32.4 Red Cell Distribution Width 13.7 Platelet Count 336 Mean Platelet Volume 9.9 Neutrophils % 64.7 Lymphocytes % 19.0 Monocytes % 10.1 Eosinophils % 4.7 Basophils % 0.3 Nucleated Red Blood Cells % 0.0 Neutrophils # 4.7 Lymphocytes # 1.4 Monocytes # 0.7 Eosinophils # 0.3 Basophils # 0.0 Nucleated Red Blood Cells # 0.0 Sodium Level 142 Potassium Level 4.5 Chloride Level 89 L Carbon Dioxide Level 30 Anion Gap 28 H Blood Urea Nitrogen 48 #H Creatinine 10.72 #H Glucose Level 207 Calcium Level 9.6 Medications Medications Current Medications Ondansetron HCl (Zofran Inj) 4 mg Q6H PRN IV NAUSEA AND/OR VOMITING; Start at 00:00 Morphine Sulfate (morphine) 2 mg Q4H PRN IV SEVERE PAIN LEVEL 7-10 Last administered on 03/05/17 03:14; Admin Dose 2 MG; Start 03/04/17 at 00:00 Famotidine (Pepcid Iv) 20 mg DAILY IV Last administered on 03/05/17 08:24; Admin Dose 20 MG; Start 03/04/17 at 09:00 Heparin Sodium (Porcine) (Heparin (5000 Units/0.5 ml)) 5,000 unit Q8 SC Last administered on 03/05/17 05:47; Admin Dose 5,000 UNIT; Start 03/04/17 at 06:00 Acetaminophen (Tylenol Tab) 325 mg Q4H PRN PO PAIN AND OR ELEVATED TEMP; Start 03/04/17 at 14:30 Carvedilol (Coreg) 12.5 mg BID PO Last administered on 03/05/17 08:25; Admin Dose 12.5 MG; Start 03/04/17 at 21:00 Labetalol HCl (Normodyne) 200 mg QHS PO Last administered on 03/05/17 01:28; Admin Dose 200 MG; Start 03/04/17 at 21:00 Multivit/Ca Carb/ B Cmplx/FA/Prenat 1 tab 1 tab DAILY PO Last administered on 08:25; Admin Dose 1 TAB; Start 03/05/17 at 09:00 Ertapenem/Sodium Chloride (Invanz/NS) 100 ml @ 100 mls/hr Q24H IVPB Last administered on 03/05/17 01:27; Admin Dose 100 MLS/HR; Start 03/04/17 at 20:00 ALEXI BRANDON Mar 05, 2017 16:57
[2017-03-05] MEDS ORDERED: GLUCAGON 1 MG INJ IM PRN (20:00)
[2017-03-05] MEDS ORDERED: DEXTROSE 50% 50 ML SYRINGE IV PRN ×2 (20:00)
[2017-03-05] MEDS ORDERED: GLUCOSE GEL 15 GRAM TUBE BUCCAL PRN (20:00)
[2017-03-05] MEDS ORDERED: GLUCOSE GEL 15 GRAM TUBE PO PRN ×2 (20:00)
[2017-03-05] MEDS: INSULIN ASPART [NOVOLOG] 3 ML PEN SC SCH (21:00)
[2017-03-06] VITALS (13 sets, daily range): BP systolic 126–190; BP diastolic 65–82; PULSE 63–68; RESP 18–20
[2017-03-06] MEDS: ACCU-CHEK XX SCH (02:00)
[2017-03-06] MEDS: HEPARIN 5,000 UNIT/0.5 ML VIAL SC SCH ×3 (06:17→22:43)
[2017-03-06 06:24] LABS: ADD SCAN DIFF NO
[2017-03-06 06:29] LABS: BASOPHILS % 0.3 % (0.0-2.0); EOSINOPHILS # 0.3 10^3/ul (0.0-0.5); EOSINOPHILS % 4.1 % (0.0-7.0); HEMATOCRIT 31.6 % (42.0-52.0); HEMOGLOBIN 10.3 g/dl (14.0-18.0); LYMPHOCYTES # 1.3 10^3/ul (0.8-2.9); MEAN CORPUSCULAR HEMOGLOBIN 31.3 pg (29.0-33.0); MEAN CORPUSCULAR HGB CONC 32.6 g/dl (32.0-37.0); MONOCYTE # 0.8 10^3/ul (0.3-0.9); MONOCYTES % 10.9 % (0.0-11.0); NEUTROPHILS % 66.8 % (39.0-77.0); PLATELET COUNT 335 10^3/UL (140-415); RED BLOOD COUNT 3.29 10^6/ul (4.70-6.10); RED CELL DISTRIBUTION WIDTH 13.4 % (11.5-14.5); WHITE BLOOD COUNT 7.5 10^3/ul (4.8-10.8)
[2017-03-06 06:42] LABS: CALCIUM 9.7 mg/dl (8.4-10.2); CREATININE 12.4 mg/dl (0.61-1.24)
[2017-03-06] MEDS: INSULIN ASPART [NOVOLOG] 3 ML PEN SC SCH ×4 (08:41→21:00)
[2017-03-06] MEDS: MULTIVIT/CA CARB/B CMPLX/FA TAB PO SCH (09:15)
[2017-03-06] MEDS: SEVELAMER 800 MG TAB PO SCH ×4 (09:16→20:38)
[2017-03-06] MEDS: FAMOTIDINE 20 MG INJ IV SCH (09:16)
[2017-03-06] MEDS: CALCIUM ACETATE 667 MG CAP PO SCH ×3 (09:16→17:55)
--- NOTE | 2017-03-06 11:15 | PN ---
Date/Time of Note Date/Time of Note DATE: 03/06/17 TIME: 11:12 Assessment/Plan VTE Prophylaxis VTE Prophylaxis Intervention: other Lines/Catheters IV Catheter Type (from Nrsg): Assessment/Plan Assessment/Plan 1) Right lower extremity cellulitis 2) End-stage renal disease on hemodialysis 3) Hyperkalemia 4) Diabetes mellitus 5) Chronic Hypertension Cont maintenance HD Schedule 4x week HD ordered for today and tomorrow Electrolyte abnormality will correct with HD Dose IV ABx to ESRD [id number] no change cont plan mw hd [id number] stable cont plan Exam/Review of Systems Vital Signs Vitals Vital Signs Date Time Temp Pulse Resp B/P Pulse Ox O2 Delivery O2 Flow Rate FiO2 03/06/17 08:51 63 03/06/17 07:21 98.4 19 158/65 97 03/04/17 17:55 Room Air 03/03/17 23:03 21 Intake and Output 03/05/17 03/05/17 03/06/17 15:00 23:00 07:00 Intake Total 320 ml Balance 320 ml Exam Constitutional: alert, oriented Psych: no complaints Head: normocephalic Eyes: nl conjunctiva Neck: supple Respiratory: clear to auscultation, normal air movement Cardiovascular: nl pulses, regular rate and rhythm Gastrointestinal: nl liver, spleen, soft Results Result Diagram: 03/06/17 0544 03/06/17 0544 Results 24 hrs Laboratory Tests Test 03/05/17 22:00 03/06/17 05:41 03/06/17 05:44 03/06/17 07:49 Bedside Glucose 219 158 Hemoglobin A1c 8.0 H White Blood Count 7.5 Red Blood Count 3.29 L Hemoglobin 10.3 L Hematocrit 31.6 L Mean Corpuscular Volume 96.0 Mean Corpuscular Hemoglobin 31.3 Mean Corpuscular Hemoglobin Concent 32.6 Red Cell Distribution Width 13.4 Platelet Count 335 Mean Platelet Volume 10.0 Neutrophils % 66.8 Lymphocytes % 17.0 Monocytes % 10.9 Eosinophils % 4.1 Basophils % 0.3 Nucleated Red Blood Cells % 0.0 Neutrophils # 5.0 Lymphocytes # 1.3 Monocytes # 0.8 Eosinophils # 0.3 Basophils # 0.0 Nucleated Red Blood Cells # 0.0 Sodium Level 140 Potassium Level 5.0 Chloride Level 89 L Carbon Dioxide Level 28 Anion Gap 28 H Blood Urea Nitrogen 61 H Creatinine 12.40 H Glucose Level 180 Calcium Level 9.7 Medications Medications Current Medications Ondansetron HCl (Zofran Inj) 4 mg Q6H PRN IV NAUSEA AND/OR VOMITING; Start at 00:00 Morphine Sulfate (morphine) 2 mg Q4H PRN IV SEVERE PAIN LEVEL 7-10 Last administered on 03/05/17 03:14; Admin Dose 2 MG; Start 03/04/17 at 00:00 Famotidine (Pepcid Iv) 20 mg DAILY IV Last administered on 03/06/17 09:16; Admin Dose 20 MG; Start 03/04/17 at 09:00 Heparin Sodium (Porcine) (Heparin (5000 Units/0.5 ml)) 5,000 unit Q8 SC Last administered on 03/06/17 06:17; Admin Dose 5,000 UNIT; Start 03/04/17 at 06:00 Acetaminophen (Tylenol Tab) 325 mg Q4H PRN PO PAIN AND OR ELEVATED TEMP; Start 03/04/17 at 14:30 Carvedilol (Coreg) 12.5 mg BID PO Last administered on 03/06/17 09:17; Admin Dose 12.5 MG; Start 03/04/17 at 21:00 Labetalol HCl (Normodyne) 200 mg QHS PO Last administered on 03/05/17 22:05; Admin Dose 200 MG; Start 03/04/17 at 21:00 Multivit/Ca Carb/ B Cmplx/FA/Prenat 1 tab 1 tab DAILY PO Last administered on 09:15; Admin Dose 1 TAB; Start 03/05/17 at 09:00 Ertapenem/Sodium Chloride (Invanz/NS) 100 ml @ 100 mls/hr Q24H IVPB Last administered on 03/05/17 22:05; Admin Dose 100 MLS/HR; Start 03/04/17 at 20:00 Diagnostic Test (Pha) (Accu-Chek) 1 ea 02 XX ; Start 03/06/17 at 02:00 Miscellaneous Information 1 ea NOTE XX ; Start 03/05/17 at 20:00 Glucose (Glutose) 15 gm Q15M PRN PO DECREASED GLUCOSE; Start 03/05/17 at 20:00 Glucose (Glutose) 22.5 gm Q15M PRN PO DECREASED GLUCOSE; Start 03/05/17 at 20: 00 Dextrose (D50w Syringe) 25 ml Q15M PRN IV DECREASED GLUCOSE; Start 03/05/17 at 20:00 Dextrose (D50w Syringe) 50 ml Q15M PRN IV DECREASED GLUCOSE; Start 03/05/17 at 20:00 Glucagon (Glucagen) 1 mg Q15M PRN IM DECREASED GLUCOSE; Start 03/05/17 at 20:00 Glucose (Glutose) 15 gm Q15M PRN BUCCAL DECREASED GLUCOSE; Start 03/05/17 at 20 :00 KAROL MOREAU MD Mar 06, 2017 11:15
--- NOTE | 2017-03-06 14:57 | PN ---
Date/Time of Note Date/Time of Note DATE: 03/06/17 TIME: 14:56 Assessment/Plan Lines/Catheters IV Catheter Type (from Nrs): Assessment/Plan Assessment/Plan -Right lower extremity cellulitis, start patient on broad-spectrum antibiotics, Dr. Tirado will be following from infectious disease standpoint. Dr. Douglass will be following from podiatry standpoint. Dr. Jay is asked to see patient in vascular surgery consultation. -End-stage renal disease on hemodialysis 4 times a week, Dr. De Santiago is following in nephrology consultation. -Hyperkalemia secondary to end-stage renal disease. -Diabetes mellitus type 2, continue Lantus and NovoLog. -Hypertension, continue Coreg and clonidine. Further recommendations based on clinical course. Plan of care discussed with Dr. Casiano. ALEXI BRANDON Mar 06, 2017 14:57
--- NOTE | 2017-03-06 17:49 | CONS ---
Date/Time of Note Date/Time of Note DATE: 03/06/17 TIME: 17:43 Assessment/Plan Assessment/Plan Chief Complaint/Hosp Course ID PROGRESS NOTE TOTAL ABX DAY #3 => Vanco IV + Ertapenem 24H INTERVAL SUMMARY * Clinically status quo, no fevers, WBC normalized, HD patient * Patient was DC'd from [facility] and apparently presented directly to [facility] ED post DC-> He is requesting 2nd opinion on open RLEXT ankle wound. * I requested MICRO and IMAGING records from [facility] * Per primary note: APC [facility] Vascular consulted for 2nd opinion * MICRO: BCx (-); RLEXT wound Cx: Kym: 03/03/17-2034 * GRAM STAIN Final POLYMORPH. LEUKOCYTE NONE SEEN / NO ORGANISM SEEN * WOUND CULTURE FINAL NO GROWTH AFTER 3 DAYS * RLEXT X-Ray RLEXT X-Ray IMPRESSION: 1. Soft tissue swelling overlying the lateral malleolus with ulcer at this site. 2. Atherosclerosis. 3. Plantar calcaneal spur. 4. No fracture or lytic lesion. PHYSICAL EXAMINATION: GENERAL: VSS, NAD, no fevers HEENT: Unremarkable, NECK: Supple,full ROM CHEST: Equal chest rise bilaterally, without dyspnea on observation HEART: Pulse RRR ABDOMEN: Soft, nontender EXTREMITIES: Warm, RLEXT erythema, open wound lateral malleolus SKIN: Warm, dry ID ASSESSMENT: 46 yo M admitted with: 1. Right lower extremity cellulitis w/right lateral malleolus diabetic ulcer => hx of failed OP PO ABX treatment 2. PAD -> RLEXT peripheral atherosclerosis on X-fay * Patient with 3+Right dorsalis pedis pulse on palpation = adequate arterial supply 3. Right foot plantar calcaneal spur. 4. Diabetes mellitus type 2 -> A1c 8.1 5. End-stage renal disease on hemodialysis 4 times a week 6. Hx of HTN 7. QUERY PSYCH DX NOS? * Patient extremely irritable with unrealistic expectations of diagnostic evaluation; noncompliance history per notes; hx of "hospital shopping" for second opinions on diabetic foot wound that can be treated on outpatient status. 8. QUERY Malingering ? Suspect patient insisting on 2nd opinion via admission to [facility] post DC from [facility] due to reasons of secondary gain? ? MRSA Nares INVASIVES: * PIV ABX ALLERGIES: KNDA CURRENT ABX: DAY #3 => Vanco IV + Ertapenem ID RECOMMENDATIONS: 1. Continue current ABX 2. Check MRSA Nares-> Pending 3. Wound culture is negative-> Patient requesting 2nd opinion, follow APC & Vascular consultant teacher recommendations 4. Order to obtain records from other treating facility = [facility]- Micro results, imaging results, MRI if done - please follow up tomorrow see if FAX received and placed in chart. * Further recs on ABX RX pending review of previous wound cx, previous imaging, and consultant teacher recommendations. . . Problems: Consultation Date/Type/Reason Admit Date/Time Mar 03, 2017 at 21:28 Initial Consult Date 03/04/17 Type of Consultation: ID Referring Provider: SAVANNAH ANDREWS MD Exam/Review of Systems Vital Signs Vitals Vital Signs Date Time Temp Pulse Resp B/P Pulse Ox O2 Delivery O2 Flow Rate FiO2 03/06/17 16:35 68 03/06/17 15:27 98.5 19 168/67 99 03/04/17 17:55 Room Air 03/03/17 23:03 21 Intake and Output 03/05/17 03/05/17 03/06/17 15:00 23:00 07:00 Intake Total 320 ml Balance 320 ml Results Result Diagram: 03/06/17 0544 03/06/17 0544 Results 24 hrs Laboratory Tests Test 03/05/17 22:00 03/06/17 05:41 03/06/17 05:44 03/06/17 07:49 Bedside Glucose 219 158 Hemoglobin A1c 8.0 H White Blood Count 7.5 Red Blood Count 3.29 L Hemoglobin 10.3 L Hematocrit 31.6 L Mean Corpuscular Volume 96.0 Mean Corpuscular Hemoglobin 31.3 Mean Corpuscular Hemoglobin Concent 32.6 Red Cell Distribution Width 13.4 Platelet Count 335 Mean Platelet Volume 10.0 Neutrophils % 66.8 Lymphocytes % 17.0 Monocytes % 10.9 Eosinophils % 4.1 Basophils % 0.3 Nucleated Red Blood Cells % 0.0 Neutrophils # 5.0 Lymphocytes # 1.3 Monocytes # 0.8 Eosinophils # 0.3 Basophils # 0.0 Nucleated Red Blood Cells # 0.0 Sodium Level 140 Potassium Level 5.0 Chloride Level 89 L Carbon Dioxide Level 28 Anion Gap 28 H Blood Urea Nitrogen 61 H Creatinine 12.40 H Glucose Level 180 Calcium Level 9.7 Test 03/06/17 11:56 Bedside Glucose 146 Medications Medications Current Medications Ondansetron HCl (Zofran Inj) 4 mg Q6H PRN IV NAUSEA AND/OR VOMITING; Start at 00:00 Morphine Sulfate (morphine) 2 mg Q4H PRN IV SEVERE PAIN LEVEL 7-10 Last administered on 03/05/17 03:14; Admin Dose 2 MG; Start 03/04/17 at 00:00 Famotidine (Pepcid Iv) 20 mg DAILY IV Last administered on 03/06/17 09:16; Admin Dose 20 MG; Start 03/04/17 at 09:00 Heparin Sodium (Porcine) (Heparin (5000 Units/0.5 ml)) 5,000 unit Q8 SC Last administered on 03/06/17 06:17; Admin Dose 5,000 UNIT; Start 03/04/17 at 06:00 Acetaminophen (Tylenol Tab) 325 mg Q4H PRN PO PAIN AND OR ELEVATED TEMP; Start 03/04/17 at 14:30 Carvedilol (Coreg) 12.5 mg BID PO Last administered on 03/06/17 09:17; Admin Dose 12.5 MG; Start 03/04/17 at 21:00 Labetalol HCl (Normodyne) 200 mg QHS PO Last administered on 03/05/17 22:05; Admin Dose 200 MG; Start 03/04/17 at 21:00 Multivit/Ca Carb/ B Cmplx/FA/Prenat 1 tab 1 tab DAILY PO Last administered on 09:15; Admin Dose 1 TAB; Start 03/05/17 at 09:00 Ertapenem/Sodium Chloride (Invanz/NS) 100 ml @ 100 mls/hr Q24H IVPB Last administered on 03/05/17 22:05; Admin Dose 100 MLS/HR; Start 03/04/17 at 20:00 Diagnostic Test (Pha) (Accu-Chek) 1 ea 02 XX ; Start 03/06/17 at 02:00 Miscellaneous Information 1 ea NOTE XX ; Start 03/05/17 at 20:00 Glucose (Glutose) 15 gm Q15M PRN PO DECREASED GLUCOSE; Start 03/05/17 at 20:00 Glucose (Glutose) 22.5 gm Q15M PRN PO DECREASED GLUCOSE; Start 03/05/17 at 20: 00 Dextrose (D50w Syringe) 25 ml Q15M PRN IV DECREASED GLUCOSE; Start 03/05/17 at 20:00 Dextrose (D50w Syringe) 50 ml Q15M PRN IV DECREASED GLUCOSE; Start 03/05/17 at 20:00 Glucagon (Glucagen) 1 mg Q15M PRN IM DECREASED GLUCOSE; Start 03/05/17 at 20:00 Glucose (Glutose) 15 gm Q15M PRN BUCCAL DECREASED GLUCOSE; Start 03/05/17 at 20 :00 Miscellaneous Information (*Rx Drug Level Order Reminder*) RANDOM VANCOMYCIN LEVEL 7... ONCE ONCE XX ; Start 03/07/17 at 05:00; Stop 03/07/17 at 05:01 PARVIZ RECIO NP Mar 06, 2017 17:49
[2017-03-06] MEDS: LABETALOL 100 MG TAB PO SCH (20:37)
[2017-03-06] MEDS: hydrALAzine 20 MG INJ IV PRN (21:17)
[2017-03-06] MEDS: ERTAPENEM SODIUM 0.5 GM in SOD CHLORIDE 0.9% 100 ML IVPB SCH (21:23)
[2017-03-06] MEDS: NITROGLYCERIN 2% 1 GM OINT PKT TD SCH (22:43)
[2017-03-07] VITALS (18 sets, daily range): BP systolic 106–181; BP diastolic 55–84; PULSE 68–78; RESP 15–21
[2017-03-07] MEDS: ACCU-CHEK XX SCH (02:00)
[2017-03-07] MEDS: HEPARIN 5,000 UNIT/0.5 ML VIAL SC SCH ×3 (05:16→21:01)
[2017-03-07] MEDS: NITROGLYCERIN 2% 1 GM OINT PKT TD SCH ×3 (05:20→22:16)
[2017-03-07] MEDS: INSULIN ASPART [NOVOLOG] 3 ML PEN SC SCH ×4 (07:55→21:00)
[2017-03-07] MEDS: CALCIUM ACETATE 667 MG CAP PO SCH ×3 (08:14→18:17)
[2017-03-07] MEDS: MULTIVIT/CA CARB/B CMPLX/FA TAB PO SCH (10:07)
[2017-03-07] MEDS: FAMOTIDINE 20 MG INJ IV SCH (10:07)
[2017-03-07] MEDS ORDERED: PENDING SANTYL ORDER FOR WOUND CARE XX PRN (10:30)
[2017-03-07] MEDS: COLLAGENASE 30 GM TUBE TOP SCH (11:00)
[2017-03-07] MEDS ORDERED: COLLAGENASE 30 GM TUBE TOP PRN (11:00)
[2017-03-07] MEDS: SEVELAMER 800 MG TAB PO SCH ×2 (11:51→18:17)
--- NOTE | 2017-03-07 13:13 | PN ---
Date/Time of Note Date/Time of Note DATE: 03/07/17 TIME: 13:08 Assessment/Plan VTE Prophylaxis VTE Prophylaxis Intervention: SCD's Lines/Catheters IV Catheter Type (from Nrs): Peripheral IV Urinary Cath still in place: No Assessment/Plan Chief Complaint/Hosp Course Potassium is 5, pending hemodialysis today, right ankle wound pain is well controlled. Patient with episode of elevated blood pressure, continue hydralazine as needed for blood pressure above 170. Assessment/Plan -Right lower extremity cellulitis, Dr. Tirado is following from infectious disease standpoint. Continue antibiotics per ID. Dr. Douglass is following from podiatry standpoint. Dr. Jay is following in vascular surgery consultation. -End-stage renal disease on hemodialysis 4 times a week, Dr. De Santiago is following in nephrology consultation. -Hyperkalemia secondary to end-stage renal disease. -Diabetes mellitus type 2, continue Lantus and NovoLog. -Hypertension, continue Coreg and clonidine. Further recommendations based on clinical course. Plan of care discussed with Dr. Casiano. Problems: Exam/Review of Systems Vital Signs Vitals Vital Signs Date Time Temp Pulse Resp B/P Pulse Ox O2 Delivery O2 Flow Rate FiO2 03/07/17 11:23 98.2 70 21 181/84 99 03/06/17 18:20 Room Air 03/03/17 23:03 21 Intake and Output 03/06/17 03/06/17 03/07/17 15:00 23:00 07:00 Intake Total 250 ml 100 ml Balance 250 ml 100 ml Exam Constitutional: alert Head: atraumatic, normocephalic Neck: non-tender, supple Respiratory: normal air movement Cardiovascular: nl pulses Gastrointestinal: non-tender, soft Musculoskeletal: nl extremities to inspection Extremities: normal pulses, other (Left upper extremity AV fistula) Neurological: nl mental status Skin: other (Right calcaneus wound with necrotic center) Results Result Diagram: 03/06/17 0544 03/06/17 0544 Results 24 hrs Laboratory Tests Test 03/06/17 17:34 03/06/17 22:31 03/07/17 05:58 03/07/17 08:26 Bedside Glucose 193 146 129 Random Vancomycin Level 24.2 Test 03/07/17 11:50 Bedside Glucose 125 Medications Medications Current Medications Ondansetron HCl (Zofran Inj) 4 mg Q6H PRN IV NAUSEA AND/OR VOMITING; Start at 00:00 Morphine Sulfate (morphine) 2 mg Q4H PRN IV SEVERE PAIN LEVEL 7-10 Last administered on 03/05/17 03:14; Admin Dose 2 MG; Start 03/04/17 at 00:00 Famotidine (Pepcid Iv) 20 mg DAILY IV Last administered on 03/07/17 10:07; Admin Dose 20 MG; Start 03/04/17 at 09:00 Heparin Sodium (Porcine) (Heparin (5000 Units/0.5 ml)) 5,000 unit Q8 SC Last administered on 03/07/17 05:16; Admin Dose 5,000 UNIT; Start 03/04/17 at 06:00 Acetaminophen (Tylenol Tab) 325 mg Q4H PRN PO PAIN AND OR ELEVATED TEMP; Start 03/04/17 at 14:30 Carvedilol (Coreg) 12.5 mg BID PO Last administered on 03/07/17 10:08; Admin Dose 12.5 MG; Start 03/04/17 at 21:00 Labetalol HCl (Normodyne) 200 mg QHS PO Last administered on 03/06/17 20:37; Admin Dose 200 MG; Start 03/04/17 at 21:00 Multivit/Ca Carb/ B Cmplx/FA/Prenat 1 tab 1 tab DAILY PO Last administered on 10:07; Admin Dose 1 TAB; Start 03/05/17 at 09:00 Ertapenem/Sodium Chloride (Invanz/NS) 100 ml @ 100 mls/hr Q24H IVPB Last administered on 03/06/17 21:23; Admin Dose 100 MLS/HR; Start 03/04/17 at 20:00 Diagnostic Test (Pha) (Accu-Chek) 1 ea 02 XX ; Start 03/06/17 at 02:00 Miscellaneous Information 1 ea NOTE XX ; Start 03/05/17 at 20:00 Glucose (Glutose) 15 gm Q15M PRN PO DECREASED GLUCOSE; Start 03/05/17 at 20:00 Glucose (Glutose) 22.5 gm Q15M PRN PO DECREASED GLUCOSE; Start 03/05/17 at 20: 00 Dextrose (D50w Syringe) 25 ml Q15M PRN IV DECREASED GLUCOSE; Start 03/05/17 at 20:00 Dextrose (D50w Syringe) 50 ml Q15M PRN IV DECREASED GLUCOSE; Start 03/05/17 at 20:00 Glucagon (Glucagen) 1 mg Q15M PRN IM DECREASED GLUCOSE; Start 03/05/17 at 20:00 Glucose (Glutose) 15 gm Q15M PRN BUCCAL DECREASED GLUCOSE; Start 03/05/17 at 20 :00 Nitroglycerin (Nitroglycerin 2% Oint) 1 inch Q8 TD Last administered on 22:43; Admin Dose 1 INCH; Start 03/06/17 at 22:00 Hydralazine HCl (Apresoline) 20 mg Q6H PRN IV ELEVATED BLOOD PRESSURE Last administered on 03/06/17 21:17; Admin Dose 20 MG; Start 03/06/17 at 20:30 Miscellaneous Information (Pending Santyl Order For Wound Care) This patient downing... PRN PRN XX WOUND CARE; Start 03/07/17 at 10:30 Collagenase (Santyl) 1 applic DAILY TOP ; Start 03/07/17 at 11:00 Collagenase 1 applic 1 applic PRN PRN TOP WOUND CARE; Start 03/07/17 at 11:00 Vancomycin HCl (Vancocin) 250 ml @ 125 mls/hr Q96H IVPB ; Start 03/08/17 at 18: 00 CHARLINE ALMENDAREZ Mar 07, 2017 13:12
--- NOTE | 2017-03-07 13:37 | CONS ---
Date/Time of Note Date/Time of Note DATE: 03/07/17 TIME: 13:36 Assessment/Plan Assessment/Plan Chief Complaint/Hosp Course Alert, denies pain, looks comfortable Temperature 98.2 pulse 70 respirations 20 blood pressure 181/84 saturation 99 room air Indwelling's: Left upper extremity AV fistula Antimicrobials: Vancomycin Invanz Microbiology: All cultures remain negative Physical examination: Obese, well-developed middle-aged man who is alert in no distress. Head atraumatic normocephalic sclera nonicteric. Mucosa pink. Neck is supple. Chest rise symmetrical breath sounds clear. Heart: S1- S2. Abdomen soft bowel tones present extremities without cyanosis right lateral malleolus with wound, no drainage Assessment: 1. Right lower extremity resolving cellulitis with diabetic ulceration 2. Diabetes 3. End-stage renal disease, hemodialysis dependent 4. Hypertension Plan: Remain stable, pending podiatry evaluation, change Invanz to Levaquin, continue vancomycin Problems: Consultation Date/Type/Reason Admit Date/Time Mar 03, 2017 at 21:28 Initial Consult Date 03/04/17 Type of Consultation: ID Referring Provider: SAVANNAH ANDREWS MD Exam/Review of Systems Vital Signs Vitals Vital Signs Date Time Temp Pulse Resp B/P Pulse Ox O2 Delivery O2 Flow Rate FiO2 03/07/17 12:13 69 03/07/17 11:23 98.2 21 181/84 99 03/06/17 18:20 Room Air 03/03/17 23:03 21 Intake and Output 03/06/17 03/06/17 03/07/17 15:00 23:00 07:00 Intake Total 250 ml 100 ml Balance 250 ml 100 ml Results Result Diagram: 03/06/17 0544 03/06/17 0544 Results 24 hrs Laboratory Tests Test 03/06/17 17:34 03/06/17 22:31 03/07/17 05:58 03/07/17 08:26 Bedside Glucose 193 146 129 Random Vancomycin Level 24.2 Test 03/07/17 11:50 Bedside Glucose 125 Medications Medications Current Medications Ondansetron HCl (Zofran Inj) 4 mg Q6H PRN IV NAUSEA AND/OR VOMITING; Start at 00:00 Morphine Sulfate (morphine) 2 mg Q4H PRN IV SEVERE PAIN LEVEL 7-10 Last administered on 03/05/17 03:14; Admin Dose 2 MG; Start 03/04/17 at 00:00 Famotidine (Pepcid Iv) 20 mg DAILY IV Last administered on 03/07/17 10:07; Admin Dose 20 MG; Start 03/04/17 at 09:00 Heparin Sodium (Porcine) (Heparin (5000 Units/0.5 ml)) 5,000 unit Q8 SC Last administered on 03/07/17 05:16; Admin Dose 5,000 UNIT; Start 03/04/17 at 06:00 Acetaminophen (Tylenol Tab) 325 mg Q4H PRN PO PAIN AND OR ELEVATED TEMP; Start 03/04/17 at 14:30 Carvedilol (Coreg) 12.5 mg BID PO Last administered on 03/07/17 10:08; Admin Dose 12.5 MG; Start 03/04/17 at 21:00 Labetalol HCl (Normodyne) 200 mg QHS PO Last administered on 03/06/17 20:37; Admin Dose 200 MG; Start 03/04/17 at 21:00 Multivit/Ca Carb/ B Cmplx/FA/Prenat 1 tab 1 tab DAILY PO Last administered on 10:07; Admin Dose 1 TAB; Start 03/05/17 at 09:00 Ertapenem/Sodium Chloride (Invanz/NS) 100 ml @ 100 mls/hr Q24H IVPB Last administered on 03/06/17 21:23; Admin Dose 100 MLS/HR; Start 03/04/17 at 20:00 Diagnostic Test (Pha) (Accu-Chek) 1 ea 02 XX ; Start 03/06/17 at 02:00 Miscellaneous Information 1 ea NOTE XX ; Start 03/05/17 at 20:00 Glucose (Glutose) 15 gm Q15M PRN PO DECREASED GLUCOSE; Start 03/05/17 at 20:00 Glucose (Glutose) 22.5 gm Q15M PRN PO DECREASED GLUCOSE; Start 03/05/17 at 20: 00 Dextrose (D50w Syringe) 25 ml Q15M PRN IV DECREASED GLUCOSE; Start 03/05/17 at 20:00 Dextrose (D50w Syringe) 50 ml Q15M PRN IV DECREASED GLUCOSE; Start 03/05/17 at 20:00 Glucagon (Glucagen) 1 mg Q15M PRN IM DECREASED GLUCOSE; Start 03/05/17 at 20:00 Glucose (Glutose) 15 gm Q15M PRN BUCCAL DECREASED GLUCOSE; Start 03/05/17 at 20 :00 Nitroglycerin (Nitroglycerin 2% Oint) 1 inch Q8 TD Last administered on 22:43; Admin Dose 1 INCH; Start 03/06/17 at 22:00 Hydralazine HCl (Apresoline) 20 mg Q6H PRN IV ELEVATED BLOOD PRESSURE Last administered on 03/06/17 21:17; Admin Dose 20 MG; Start 03/06/17 at 20:30 Miscellaneous Information (Pending Santyl Order For Wound Care) This patient downing... PRN PRN XX WOUND CARE; Start 03/07/17 at 10:30 Collagenase (Santyl) 1 applic DAILY TOP ; Start 03/07/17 at 11:00 Collagenase 1 applic 1 applic PRN PRN TOP WOUND CARE; Start 03/07/17 at 11:00 Vancomycin HCl (Vancocin) 250 ml @ 125 mls/hr Q96H IVPB ; Start 03/08/17 at 18: 00 RED CURIEL NP Mar 07, 2017 13:37
[2017-03-07] MEDS ORDERED: LEVOFLOXACIN 250 MG TAB PO SCH (14:00)
[2017-03-07] MEDS: LABETALOL 100 MG TAB PO SCH (21:00)
--- NOTE | 2017-03-07 22:33 | CONS ---
Date/Time of Note Date/Time of Note DATE: 03/07/17 TIME: 22:31 Assessment/Plan Assessment/Plan Additional Assessment/Plan Pt was dialyzed already. awaiting Vascular w/u Cont'd Hospitalization Reason: Further plans per Dr Casiano & Sx. Consultation Date/Type/Reason Admit Date/Time Mar 03, 2017 at 21:28 Initial Consult Date 03/04/17 Type of Consultation: renal Referring Provider: SAVANNAH CASIANO MD 24 HR Interval Summary Free Text/Dictation Chart revioewd and pt examined Constitutional: other (Pt c/o discolration of rt foot toes) Exam/Review of Systems Vital Signs Vitals Vital Signs Date Time Temp Pulse Resp B/P Pulse Ox O2 Delivery O2 Flow Rate FiO2 03/07/17 21:13 75 03/07/17 20:00 98.6 20 157/61 98 03/07/17 16:00 Room Air 03/03/17 23:03 21 Intake and Output 03/06/17 03/06/17 03/07/17 15:00 23:00 07:00 Intake Total 250 ml 100 ml Balance 250 ml 100 ml Exam Constitutional: alert, oriented, well developed Psych: nl mood/affect, no complaints Head: atraumatic, normocephalic Eyes: EOMI, PERRL, nl conjunctiva, nl lids, nl sclera, other (Hx of diabetic retinopathy, poor vision.) ENMT: nl external ears & nose, nl lips & teeth, nl nasal mucosa & septum Neck: non-tender, supple Respiratory: clear to auscultation, normal air movement Cardiovascular: nl pulses, regular rate and rhythm Gastrointestinal: nl liver, spleen, non-tender, soft Musculoskeletal: nl extremities to inspection, nl gait and stance Extremities: normal pulses, other (lt arm avf in place.) Neurological: PROOF READER II-XII intact, nl mental status, nl speech, nl strength Skin: nl turgor, No rash or lesions Lymph: nl lymph nodes Results Hct stable 32%, WBC is normal Result Diagram: 03/06/17 0544 03/06/1744 Results 24 hrs Laboratory Tests Test 03/07/17 05:58 03/07/17 08:26 03/07/17 11:50 03/07/17 18:16 Random Vancomycin Level 24.2 Bedside Glucose 129 125 188 Test 03/07/17 22:09 Bedside Glucose 191 Medications Medications Current Medications Ondansetron HCl (Zofran Inj) 4 mg Q6H PRN IV NAUSEA AND/OR VOMITING; Start at 00:00 Morphine Sulfate (morphine) 2 mg Q4H PRN IV SEVERE PAIN LEVEL 7-10 Last administered on 03/05/17 03:14; Admin Dose 2 MG; Start 03/04/17 at 00:00 Famotidine (Pepcid Iv) 20 mg DAILY IV Last administered on 03/07/17 10:07; Admin Dose 20 MG; Start 03/04/17 at 09:00 Heparin Sodium (Porcine) (Heparin (5000 Units/0.5 ml)) 5,000 unit Q8 SC Last administered on 03/07/17 21:01; Admin Dose 5,000 UNIT; Start 03/04/17 at 06:00 Acetaminophen (Tylenol Tab) 325 mg Q4H PRN PO PAIN AND OR ELEVATED TEMP; Start 03/04/17 at 14:30 Carvedilol (Coreg) 12.5 mg BID PO Last administered on 03/07/17 21:00; Admin Dose 12.5 MG; Start 03/04/17 at 21:00 Labetalol HCl (Normodyne) 200 mg QHS PO Last administered on 03/07/17 21:00; Admin Dose 200 MG; Start 03/04/17 at 21:00 Multivit/Ca Carb/ B Cmplx/FA/Prenat (Keke-Andi) 1 tab DAILY PO Last administered on 03/07/17 10:07; Admin Dose 1 TAB; Start 03/05/17 at 09:00 Diagnostic Test (Pha) (Accu-Chek) 1 ea 02 XX ; Start 03/06/17 at 02:00 Miscellaneous Information 1 ea NOTE XX ; Start 03/05/17 at 20:00 Glucose (Glutose) 15 gm Q15M PRN PO DECREASED GLUCOSE; Start 03/05/17 at 20:00 Glucose (Glutose) 22.5 gm Q15M PRN PO DECREASED GLUCOSE; Start 03/05/17 at 20: 00 Dextrose (D50w Syringe) 25 ml Q15M PRN IV DECREASED GLUCOSE; Start 03/05/17 at 20:00 Dextrose (D50w Syringe) 50 ml Q15M PRN IV DECREASED GLUCOSE; Start 03/05/17 at 20:00 Glucagon (Glucagen) 1 mg Q15M PRN IM DECREASED GLUCOSE; Start 03/05/17 at 20:00 Glucose (Glutose) 15 gm Q15M PRN BUCCAL DECREASED GLUCOSE; Start 03/05/17 at 20 :00 Nitroglycerin (Nitroglycerin 2% Oint) 1 inch Q8 TD Last administered on 22:16; Admin Dose 1 INCH; Start 03/06/17 at 22:00 Hydralazine HCl (Apresoline) 20 mg Q6H PRN IV ELEVATED BLOOD PRESSURE Last administered on 03/06/17 21:17; Admin Dose 20 MG; Start 03/06/17 at 20:30 Miscellaneous Information (Pending Santyl Order For Wound Care) This patient downing... PRN PRN XX WOUND CARE; Start 03/07/17 at 10:30 Collagenase (Santyl) 1 applic DAILY TOP ; Start 03/07/17 at 11:00 Collagenase 1 applic 1 applic PRN PRN TOP WOUND CARE; Start 03/07/17 at 11:00 Vancomycin HCl (Vancocin) 250 ml @ 125 mls/hr Q96H IVPB ; Start 03/08/17 at 18: 00 Levofloxacin (Levaquin) 250 mg Q48H PO Last administered on 03/07/17 16:33; Admin Dose 250 MG; Start 03/07/17 at 14:00 JOSHUA SQUIRES MD Mar 07, 2017 22:32
[2017-03-08] VITALS (12 sets, daily range): BP systolic 126–151; BP diastolic 60–72; PULSE 65–73; RESP 18–20
[2017-03-08] MEDS: ACCU-CHEK XX SCH (02:00)
[2017-03-08] MEDS: morphine 2 MG INJ IV PRN ×2 (02:28→08:45)
[2017-03-08] MEDS: NITROGLYCERIN 2% 1 GM OINT PKT TD SCH ×3 (06:40→21:43)
[2017-03-08] MEDS: HEPARIN 5,000 UNIT/0.5 ML VIAL SC SCH ×3 (06:40→21:44)
[2017-03-08] MEDS: INSULIN ASPART [NOVOLOG] 3 ML PEN SC SCH ×4 (07:55→21:00)
[2017-03-08] MEDS: MULTIVIT/CA CARB/B CMPLX/FA TAB PO SCH (08:40)
[2017-03-08] MEDS: SEVELAMER 800 MG TAB PO SCH ×3 (08:40→17:29)
[2017-03-08] MEDS: CALCIUM ACETATE 667 MG CAP PO SCH ×3 (08:41→17:29)
[2017-03-08] MEDS: FAMOTIDINE 20 MG INJ IV SCH (08:44)
[2017-03-08] MEDS: COLLAGENASE 30 GM TUBE TOP SCH (08:45)
[2017-03-08 12:35] LABS: ADD SCAN DIFF NO
[2017-03-08 12:37] LABS: BASOPHILS % 0.1 % (0.0-2.0); EOSINOPHILS # 0.2 10^3/ul (0.0-0.5); EOSINOPHILS % 2.6 % (0.0-7.0); HEMATOCRIT 32.9 % (42.0-52.0); HEMOGLOBIN 10.6 g/dl (14.0-18.0); LYMPHOCYTES # 1.1 10^3/ul (0.8-2.9); LYMPHOCYTES % 15.4 % (15.0-51.0); MEAN CORPUSCULAR HEMOGLOBIN 31.2 pg (29.0-33.0); MEAN CORPUSCULAR HGB CONC 32.2 g/dl (32.0-37.0); MEAN CORPUSCULAR VOLUME 96.8 fl (82.0-101.0); MEAN PLATELET VOLUME 9.5 fl (7.4-10.4); MONOCYTE # 0.7 10^3/ul (0.3-0.9); NEUTROPHIL # 5.2 10^3/ul (1.6-7.5); NEUTROPHILS % 71.5 % (39.0-77.0); PLATELET COUNT 316 10^3/UL (140-415); RED CELL DISTRIBUTION WIDTH 13.6 % (11.5-14.5); WHITE BLOOD COUNT 7.2 10^3/ul (4.8-10.8)
[2017-03-08 12:59] LABS: CALCIUM 9.9 mg/dl (8.4-10.2); CREATININE 12.53 mg/dl (0.61-1.24); POTASSIUM 5.2 mmol/L (3.5-5.1)
--- NOTE | 2017-03-08 13:11 | CONS ---
Date/Time of Note Date/Time of Note DATE: 03/08/17 TIME: 13:10 Assessment/Plan Assessment/Plan Additional Assessment/Plan 1) Right lower extremity cellulitis 2) End-stage renal disease on hemodialysis 3) Hyperkalemia 4) Diabetes mellitus 5) Chronic Hypertension Cont maintenance HD Schedule 4x week Next HD tomorrow Dose IV ABx to ESRD Thank you for the opportunity to participate in the care of Mr Mata. Consultation Date/Type/Reason Admit Date/Time Mar 03, 2017 at 21:28 Initial Consult Date 03/04/17 Type of Consultation: renal Referring Provider: SAVANNAH ANDREWS MD 24 HR Interval Summary Free Text/Dictation No new complaints Exam/Review of Systems Vital Signs Vitals Vital Signs Date Time Temp Pulse Resp B/P Pulse Ox O2 Delivery O2 Flow Rate FiO2 03/08/17 12:16 65 03/08/17 11:30 98.0 19 132/60 96 03/07/17 16:00 Room Air Intake and Output 03/07/17 03/07/17 03/08/17 15:00 23:00 07:00 Intake Total 150 ml 450 ml 300 ml Output Total 3300 ml 0 ml Balance 150 ml -2850 ml 300 ml Exam Constitutional: No distress ENMT: mucosa pink and moist Neck: No jvd Respiratory: No crackles/rales, No diminished breath sounds, No labored breathing Cardiovascular: edema, regular rate and rhythm Gastrointestinal: non-tender, soft Neurological: No confused, No lethargic Skin: No diaphoresis Results Result Diagram: 03/08/17 1223 03/08/17 1223 Results 24 hrs Laboratory Tests Test 03/07/17 18:16 03/07/17 22:09 03/08/17 08:08 03/08/17 11:49 Bedside Glucose 188 191 137 179 Test 03/08/17 12:23 White Blood Count 7.2 Red Blood Count 3.40 L Hemoglobin 10.6 L Hematocrit 32.9 L Mean Corpuscular Volume 96.8 Mean Corpuscular Hemoglobin 31.2 Mean Corpuscular Hemoglobin Concent 32.2 Red Cell Distribution Width 13.6 Platelet Count 316 Mean Platelet Volume 9.5 Neutrophils % 71.5 Lymphocytes % 15.4 Monocytes % 10.0 Eosinophils % 2.6 Basophils % 0.1 Nucleated Red Blood Cells % 0.0 Neutrophils # 5.2 Lymphocytes # 1.1 Monocytes # 0.7 Eosinophils # 0.2 Basophils # 0.0 Nucleated Red Blood Cells # 0.0 Sodium Level 141 Potassium Level 5.2 H Chloride Level 89 L Carbon Dioxide Level 28 Anion Gap 29 H Blood Urea Nitrogen 53 H Creatinine 12.53 H Glucose Level 192 Calcium Level 9.9 Medications Medications Current Medications Ondansetron HCl (Zofran Inj) 4 mg Q6H PRN IV NAUSEA AND/OR VOMITING; Start at 00:00 Morphine Sulfate (morphine) 2 mg Q4H PRN IV SEVERE PAIN LEVEL 7-10 Last administered on 03/08/17 08:45; Admin Dose 2 MG; Start 03/04/17 at 00:00 Famotidine (Pepcid Iv) 20 mg DAILY IV Last administered on 03/08/17 08:44; Admin Dose 20 MG; Start 03/04/17 at 09:00 Heparin Sodium (Porcine) (Heparin (5000 Units/0.5 ml)) 5,000 unit Q8 SC Last administered on 03/08/17 06:40; Admin Dose 5,000 UNIT; Start 03/04/17 at 06:00 Acetaminophen (Tylenol Tab) 325 mg Q4H PRN PO PAIN AND OR ELEVATED TEMP Last administered on 03/08/17 01:00; Admin Dose 325 MG; Start 03/04/17 at 14:30 Carvedilol (Coreg) 12.5 mg BID PO Last administered on 03/08/17 08:45; Admin Dose 12.5 MG; Start 03/04/17 at 21:00 Labetalol HCl (Normodyne) 200 mg QHS PO Last administered on 03/07/17 21:00; Admin Dose 200 MG; Start 03/04/17 at 21:00 Multivit/Ca Carb/ B Cmplx/FA/Prenat (Keke-Andi) 1 tab DAILY PO Last administered on 03/08/17 08:40; Admin Dose 1 TAB; Start 03/05/17 at 09:00 Diagnostic Test (Pha) (Accu-Chek) 1 ea 02 XX ; Start 03/06/17 at 02:00 Miscellaneous Information 1 ea NOTE XX ; Start 03/05/17 at 20:00 Glucose (Glutose) 15 gm Q15M PRN PO DECREASED GLUCOSE; Start 03/05/17 at 20:00 Glucose (Glutose) 22.5 gm Q15M PRN PO DECREASED GLUCOSE; Start 03/05/17 at 20: 00 Dextrose (D50w Syringe) 25 ml Q15M PRN IV DECREASED GLUCOSE; Start 03/05/17 at 20:00 Dextrose (D50w Syringe) 50 ml Q15M PRN IV DECREASED GLUCOSE; Start 03/05/17 at 20:00 Glucagon (Glucagen) 1 mg Q15M PRN IM DECREASED GLUCOSE; Start 03/05/17 at 20:00 Glucose (Glutose) 15 gm Q15M PRN BUCCAL DECREASED GLUCOSE; Start 03/05/17 at 20 :00 Nitroglycerin (Nitroglycerin 2% Oint) 1 inch Q8 TD Last administered on 06:40; Admin Dose 1 INCH; Start 03/06/17 at 22:00 Hydralazine HCl (Apresoline) 20 mg Q6H PRN IV ELEVATED BLOOD PRESSURE Last administered on 03/06/17 21:17; Admin Dose 20 MG; Start 03/06/17 at 20:30 Miscellaneous Information (Pending Santyl Order For Wound Care) This patient downing... PRN PRN XX WOUND CARE; Start 03/07/17 at 10:30 Collagenase (Santyl) 1 applic DAILY TOP Last administered on 03/08/17 08:45; Admin Dose 1 APPLIC; Start 03/07/17 at 11:00 Collagenase 1 applic 1 applic PRN PRN TOP WOUND CARE; Start 03/07/17 at 11:00 Vancomycin HCl (Vancocin) 250 ml @ 125 mls/hr Q96H IVPB ; Start 03/08/17 at 18: 00 Levofloxacin (Levaquin) 250 mg Q48H PO Last administered on 03/07/17 16:33; Admin Dose 250 MG; Start 03/07/17 at 14:00 ADAM DUVAL MD Mar 08, 2017 13:10
--- NOTE | 2017-03-08 13:24 | RADRPT ---
PROCEDURE: US bilateral lower extremity arteries. CLINICAL INDICATION: Bilateral leg pain. Claudication that interferes significantly with the denisse ent's lifestyle. TECHNIQUE: Multiple longitudinal and transverse images of the bilateral lower extremity arteries w ere obtained with ellis scale, pulsed Doppler, and color Doppler imaging. COMPARISON: No prior studies are available for comparison. FINDINGS: Right ENROLLMENT ELIGIBILITY REPRESENTATIVE:113 cm/sec PSFA:107 cm/sec MSFA:125 cm/sec DSFA:94 cm/sec POP:104 cm/sec ROAD TESTER:46 cm/sec DPA:133 cm/sec Left ENROLLMENT ELIGIBILITY REPRESENTATIVE:118 cm/sec PSFA:142 cm/sec MSFA:116 cm/sec DSFA:99 cm/sec POP:92 cm/sec ROAD TESTER:139 cm/sec DPA:120 cm/sec The right ankle-brachial index is 1.4 and the left ankle-brachial index is 1.3. There is normal triphasic flow throughout the femoral and popliteal systems bilaterally. Biphasic f low is present in the calf arteries bilaterally. IMPRESSION: 1. Normal femoral and popliteal systems. 2. Biphasic flow in the calf arteries bilaterally which may indicate significant stenosis. Clinica l correlation advised. RPTAT: QQ .Selvin Baca MD, MD Date Time Electronically viewed and signed by .Selvin Baca MD, on 03/08/2017 13:23 .R/
--- NOTE | 2017-03-08 15:02 | PN ---
Date/Time of Note Date/Time of Note DATE: 03/08/17 TIME: 14:59 Assessment/Plan VTE Prophylaxis VTE Prophylaxis Intervention: SCD's Lines/Catheters IV C[facility] Type ([facility] Peripheral IV Urinary Cath still in place: No Assessment/Plan Chief Complaint/Hosp Course Patient tolerates antibiotics well, potassium is 5.2, continue hemodialysis per fabric worker, awaits final podiatry and ID recommendations prior to DC. Assessment/Plan -Right lower extremity cellulitis, Dr. Tirado is following from infectious disease standpoint. Continue antibiotics per ID. Dr. Douglass is following from podiatry standpoint. Dr. Jay is following in vascular surgery consultation. -End-stage renal disease on hemodialysis 4 times a week, Dr. De Santiago is following in nephrology consultation. -Hyperkalemia secondary to end-stage renal disease. -Diabetes mellitus type 2, continue Lantus and NovoLog. -Hypertension, continue Coreg and clonidine. Further recommendations based on clinical course. Plan of care discussed with Dr. Casiano. Problems: Exam/Review of Systems Vital Signs Vitals Vital Signs Date Time Temp Pulse Resp B/P Pulse Ox O2 Delivery O2 Flow Rate FiO2 03/08/17 12:16 65 03/08/17 11:30 98.0 19 132/60 96 03/07/17 16:00 Room Air Intake and Output 03/07/17 03/07/17 03/08/17 15:00 23:00 07:00 Intake Total 150 ml 450 ml 300 ml Output Total 3300 ml 0 ml Balance 150 ml -2850 ml 300 ml Exam Constitutional: alert Head: atraumatic, normocephalic Neck: non-tender, supple Respiratory: normal air movement Cardiovascular: nl pulses Gastrointestinal: non-tender, soft Musculoskeletal: nl extremities to inspection Extremities: normal pulses, other (Left upper extremity AV fistula) Neurological: nl mental status Skin: other (Right calcaneus wound with necrotic center) Results Result Diagram: 03/08/17 1223 03/08/17 1223 Results 24 hrs Laboratory Tests Test 03/07/17 18:16 03/07/17 22:09 03/08/17 08:08 03/08/17 11:49 Bedside Glucose 188 191 137 179 Test 03/08/17 12:23 White Blood Count 7.2 Red Blood Count 3.40 L Hemoglobin 10.6 L Hematocrit 32.9 L Mean Corpuscular Volume 96.8 Mean Corpuscular Hemoglobin 31.2 Mean Corpuscular Hemoglobin Concent 32.2 Red Cell Distribution Width 13.6 Platelet Count 316 Mean Platelet Volume 9.5 Neutrophils % 71.5 Lymphocytes % 15.4 Monocytes % 10.0 Eosinophils % 2.6 Basophils % 0.1 Nucleated Red Blood Cells % 0.0 Neutrophils # 5.2 Lymphocytes # 1.1 Monocytes # 0.7 Eosinophils # 0.2 Basophils # 0.0 Nucleated Red Blood Cells # 0.0 Sodium Level 141 Potassium Level 5.2 H Chloride Level 89 L Carbon Dioxide Level 28 Anion Gap 29 H Blood Urea Nitrogen 53 H Creatinine 12.53 H Glucose Level 192 Calcium Level 9.9 Medications Medications Current Medications Ondansetron HCl (Zofran Inj) 4 mg Q6H PRN IV NAUSEA AND/OR VOMITING; Start at 00:00 Morphine Sulfate (morphine) 2 mg Q4H PRN IV SEVERE PAIN LEVEL 7-10 Last administered on 03/08/17 08:45; Admin Dose 2 MG; Start 03/04/17 at 00:00 Famotidine (Pepcid Iv) 20 mg DAILY IV Last administered on 03/08/17 08:44; Admin Dose 20 MG; Start 03/04/17 at 09:00 Heparin Sodium (Porcine) (Heparin (5000 Units/0.5 ml)) 5,000 unit Q8 SC Last administered on 03/08/17 06:40; Admin Dose 5,000 UNIT; Start 03/04/17 at 06:00 Acetaminophen (Tylenol Tab) 325 mg Q4H PRN PO PAIN AND OR ELEVATED TEMP Last administered on 03/08/17 01:00; Admin Dose 325 MG; Start 03/04/17 at 14:30 Carvedilol (Coreg) 12.5 mg BID PO Last administered on 03/08/17 08:45; Admin Dose 12.5 MG; Start 03/04/17 at 21:00 Labetalol HCl (Normodyne) 200 mg QHS PO Last administered on 03/07/17 21:00; Admin Dose 200 MG; Start 03/04/17 at 21:00 Multivit/Ca Carb/ B Cmplx/FA/Prenat (Keke-Andi) 1 tab DAILY PO Last administered on 03/08/17 08:40; Admin Dose 1 TAB; Start 03/05/17 at 09:00 Diagnostic Test (Pha) (Accu-Chek) 1 ea 02 XX ; Start 03/06/17 at 02:00 Miscellaneous Information 1 ea NOTE XX ; Start 03/05/17 at 20:00 Glucose (Glutose) 15 gm Q15M PRN PO DECREASED GLUCOSE; Start 03/05/17 at 20:00 Glucose (Glutose) 22.5 gm Q15M PRN PO DECREASED GLUCOSE; Start 03/05/17 at 20: 00 Dextrose (D50w Syringe) 25 ml Q15M PRN IV DECREASED GLUCOSE; Start 03/05/17 at 20:00 Dextrose (D50w Syringe) 50 ml Q15M PRN IV DECREASED GLUCOSE; Start 03/05/17 at 20:00 Glucagon (Glucagen) 1 mg Q15M PRN IM DECREASED GLUCOSE; Start 03/05/17 at 20:00 Glucose (Glutose) 15 gm Q15M PRN BUCCAL DECREASED GLUCOSE; Start 03/05/17 at 20 :00 Nitroglycerin (Nitroglycerin 2% Oint) 1 inch Q8 TD Last administered on 06:40; Admin Dose 1 INCH; Start 03/06/17 at 22:00 Hydralazine HCl (Apresoline) 20 mg Q6H PRN IV ELEVATED BLOOD PRESSURE Last administered on 03/06/17 21:17; Admin Dose 20 MG; Start 03/06/17 at 20:30 Miscellaneous Information (Pending Santyl Order For Wound Care) This patient downing... PRN PRN XX WOUND CARE; Start 03/07/17 at 10:30 Collagenase (Santyl) 1 applic DAILY TOP Last administered on 03/08/17 08:45; Admin Dose 1 APPLIC; Start 03/07/17 at 11:00 Collagenase 1 applic 1 applic PRN PRN TOP WOUND CARE; Start 03/07/17 at 11:00 Vancomycin HCl (Vancocin) 250 ml @ 125 mls/hr Q96H IVPB ; Start 03/08/17 at 18: 00 Levofloxacin (Levaquin) 250 mg Q48H PO Last administered on 03/07/17 16:33; Admin Dose 250 MG; Start 03/07/17 at 14:00 CHARLINE ALMENDAREZ 18, 2017 15:01
[2017-03-08] MEDS ORDERED: VANCOMYCIN 1 GM in NS 250 ML IVPB SCH (18:00)
--- NOTE | 2017-03-08 18:05 | CONS ---
Date/Time of Note Date/Time of Note DATE: 03/08/17 TIME: 18:04 Assessment/Plan Assessment/Plan Chief Complaint/Hosp Course Alert, no fevers, looks comfortable Indwelling's: Left upper extremity AV fistula Antimicrobials: Vancomycin Invanz Microbiology: All cultures remain negative Physical examination: Obese, well-developed middle-aged man who is alert in no distress. Head atraumatic normocephalic sclera nonicteric. Mucosa pink. Neck is supple. Chest rise symmetrical breath sounds clear. Heart: S1- S2. Abdomen soft bowel tones present extremities without cyanosis right lateral malleolus with wound, no drainage Assessment: 1. Right lower extremity resolving cellulitis with diabetic ulceration 2. Diabetes 3. End-stage renal disease, hemodialysis dependent 4. Hypertension Plan: Remain stable, will change abx to Doxycycline, f/u podiatry rec-s [facility] staff Problems: Consultation Date/Type/Reason Admit Date/Time Mar 03, 2017 at 21:28 Initial Consult Date 03/04/17 Type of Consultation: ID Referring Provider: SAVANNAH ANDREWS MD Exam/Review of Systems Vital Signs Vitals Vital Signs Date Time Temp Pulse Resp B/P Pulse Ox O2 Delivery O2 Flow Rate FiO2 03/08/17 16:15 68 03/08/17 15:36 97.6 18 126/70 95 03/07/17 16:00 Room Air Intake and Output 03/07/17 03/07/17 03/08/17 15:00 23:00 07:00 Intake Total 150 ml 450 ml 300 ml Output Total 3300 ml 0 ml Balance 150 ml -2850 ml 300 ml Results Result Diagram: 03/08/17 1223 03/08/17 1223 Results 24 hrs Laboratory Tests Test 03/07/17 18:16 03/07/17 22:09 03/08/17 08:08 03/08/17 11:49 Bedside Glucose 188 191 137 179 Test 03/08/17 12:23 03/08/17 17:38 White Blood Count 7.2 Red Blood Count 3.40 L Hemoglobin 10.6 L Hematocrit 32.9 L Mean Corpuscular Volume 96.8 Mean Corpuscular Hemoglobin 31.2 Mean Corpuscular Hemoglobin Concent 32.2 Red Cell Distribution Width 13.6 Platelet Count 316 Mean Platelet Volume 9.5 Neutrophils % 71.5 Lymphocytes % 15.4 Monocytes % 10.0 Eosinophils % 2.6 Basophils % 0.1 Nucleated Red Blood Cells % 0.0 Neutrophils # 5.2 Lymphocytes # 1.1 Monocytes # 0.7 Eosinophils # 0.2 Basophils # 0.0 Nucleated Red Blood Cells # 0.0 Sodium Level 141 Potassium Level 5.2 H Chloride Level 89 L Carbon Dioxide Level 28 Anion Gap 29 H Blood Urea Nitrogen 53 H Creatinine 12.53 H Glucose Level 192 Calcium Level 9.9 Bedside Glucose 176 Medications Medications Current Medications Ondansetron HCl (Zofran Inj) 4 mg Q6H PRN IV NAUSEA AND/OR VOMITING; Start at 00:00 Morphine Sulfate (morphine) 2 mg Q4H PRN IV SEVERE PAIN LEVEL 7-10 Last administered on 03/08/17 08:45; Admin Dose 2 MG; Start 03/04/17 at 00:00 Famotidine (Pepcid Iv) 20 mg DAILY IV Last administered on 03/08/17 08:44; Admin Dose 20 MG; Start 03/04/17 at 09:00 Heparin Sodium (Porcine) (Heparin (5000 Units/0.5 ml)) 5,000 unit Q8 SC Last administered on 03/08/17 06:40; Admin Dose 5,000 UNIT; Start 03/04/17 at 06:00 Acetaminophen (Tylenol Tab) 325 mg Q4H PRN PO PAIN AND OR ELEVATED TEMP Last administered on 03/08/17 01:00; Admin Dose 325 MG; Start 03/04/17 at 14:30 Carvedilol (Coreg) 12.5 mg BID PO Last administered on 03/08/17 08:45; Admin Dose 12.5 MG; Start 03/04/17 at 21:00 Labetalol HCl (Normodyne) 200 mg QHS PO Last administered on 03/07/17 21:00; Admin Dose 200 MG; Start 03/04/17 at 21:00 Multivit/Ca Carb/ B Cmplx/FA/Prenat (Keke-Andi) 1 tab DAILY PO Last administered on 03/08/17 08:40; Admin Dose 1 TAB; Start 03/05/17 at 09:00 Diagnostic Test (Pha) (Accu-Chek) 1 ea 02 XX ; Start 03/06/17 at 02:00 Miscellaneous Information 1 ea NOTE XX ; Start 03/05/17 at 20:00 Glucose (Glutose) 15 gm Q15M PRN PO DECREASED GLUCOSE; Start 03/05/17 at 20:00 Glucose (Glutose) 22.5 gm Q15M PRN PO DECREASED GLUCOSE; Start 03/05/17 at 20: 00 Dextrose (D50w Syringe) 25 ml Q15M PRN IV DECREASED GLUCOSE; Start 03/05/17 at 20:00 Dextrose (D50w Syringe) 50 ml Q15M PRN IV DECREASED GLUCOSE; Start 03/05/17 at 20:00 Glucagon (Glucagen) 1 mg Q15M PRN IM DECREASED GLUCOSE; Start 03/05/17 at 20:00 Glucose (Glutose) 15 gm Q15M PRN BUCCAL DECREASED GLUCOSE; Start 03/05/17 at 20 :00 Nitroglycerin (Nitroglycerin 2% Oint) 1 inch Q8 TD Last administered on 15:06; Admin Dose 1 INCH; Start 03/06/17 at 22:00 Hydralazine HCl (Apresoline) 20 mg Q6H PRN IV ELEVATED BLOOD PRESSURE Last administered on 03/06/17 21:17; Admin Dose 20 MG; Start 03/06/17 at 20:30 Miscellaneous Information (Pending Santyl Order For Wound Care) This patient downing... PRN PRN XX WOUND CARE; Start 03/07/17 at 10:30 Collagenase (Santyl) 1 applic DAILY TOP Last administered on 03/08/17 08:45; Admin Dose 1 APPLIC; Start 03/07/17 at 11:00 Collagenase 1 applic 1 applic PRN PRN TOP WOUND CARE; Start 03/07/17 at 11:00 Vancomycin HCl (Vancocin) 250 ml @ 125 mls/hr Q96H IVPB Last administered on 17:29; Admin Dose 125 MLS/HR; Start 03/08/17 at 18:00 Levofloxacin (Levaquin) 250 mg Q48H PO Last administered on 03/07/17 16:33; Admin Dose 250 MG; Start 03/07/17 at 14:00 RED CURIEL NP Mar 08, 2017 18:05
[2017-03-08] MEDS ORDERED: ZOLPIDEM 5 MG TAB PO PRN (21:00)
[2017-03-08] MEDS: DOXYCYCLINE 100 MG TAB PO SCH (21:42)
[2017-03-08] MEDS: LABETALOL 100 MG TAB PO SCH (21:42)
[2017-03-09] VITALS (12 sets, daily range): BP systolic 100–194; BP diastolic 55–79; PULSE 72–78; RESP 12–20
[2017-03-09] MEDS: ACCU-CHEK XX SCH (01:59)
--- NOTE | 2017-03-09 03:43 | HP ---
DATE OF ADMISSION: 03/03/2017 Vascular Surgery History and Physical Dear Doctors, Mr. Tobias is a 46-year-old gentleman who presented to [facility] secondary to a right lower extremity diabetic foot infection and necrosis on the lateral malleolus aspect of his foot. The patient mentioned that he had the development of this finding over the past week that had been gradually getting worse. The patient is also an end-stage renal disease patient whom receives dialysis Tuesday, Tuesday, Tuesday, and Tuesday schedule. He currently has a left upper extremity AV fistula that is being followed by an outside vascular surgeon. At the moment patient denies shortness of breath, chest pain, nausea, vomiting, fever, or chills. Patient has had a history of left lower extremity Charcot's foot as well, in which he developed a diabetic foot infection and skin necrosis over the dorsal aspect of his forefoot in which he underwent a skin graft placement. His senior ui software engineer is Dr. Rose Ojeda in the [facility]. REVIEW OF SYSTEMS: Fourteen point review performed negative except as mentioned in HPI. PAST MEDICAL HISTORY: 1. Diabetes. 2. Coronary artery disease. 3. Hypertension. 4. Hyperlipidemia. 5. Morbidly obese. 6. End-stage renal disease. 7. Anemia of chronic disease. PAST SURGICAL HISTORY: 1. Left foot skin graft placement. 2. Left upper extremity fistula creation. 3. Incision and drainage of a scapular abscess. 4. Previous chest wall catheter placement. FAMILY HISTORY: Positive for diabetes and coronary artery disease. SOCIAL HISTORY: Denies tobacco, alcohol, or illicit drug use. PHYSICAL EXAMINATION: GENERAL APPEARANCE: Alert, oriented x3. No apparent distress. HEENT: Normocephalic, atraumatic. EOMI. Legally blind. Mucosa moist. NECK: Supple. No carotid bruit. LUNGS: Clear to auscultation bilaterally. No crackles. CARDIOVASCULAR: S1, S2 present. No murmurs. ABDOMEN: Soft, nontender, nondistended. Bowel sounds positive. Truncal obesity. EXTREMITIES: Right lower extremity, palpable femoral pulse. Palpable pedal pulse. Motor sensory intact. Capillary refill 2- 3 seconds. There is a lateral malleolar ulcer with eschar and surrounding erythema that has been going down over the past 2 days. Left lower extremity, palpable femoral pulse. Palpable pedal pulse. Motor sensory intact. Capillary refill 2-3 seconds. There is a previous skin graft that is well healed on the dorsal aspect of the forefoot. Left upper extremity has palpable brachial pulse. Motor sensory intact. Capillary refill 2 seconds. There is a fistula with bruit and thrill present. Previous surgical scar that is well healed. There are aneurysmal changes in the proximal upper arm that are contributed to this fistula (the patient will require further evaluation that would recommend for him to follow up with his outside vascular surgeon for his routine ultrasound screening). ASSESSMENT AND PLAN: 1. Right lower extremity atherosclerosis with a right malleolar ulcer: Recently the patient had developed a diabetic foot infection in addition to developing a necrotic ulcer on the lateral malleolar that likely has contributed to his diabetes more so than the atherosclerotic disease. At the moment patient does have palpable pedal pulse. Therefore there is not much further that we need to do from a vascular surgery intervention. We will plan to obtain noninvasive vascular studies to evaluate for any flow-limiting stenosis in his lower extremities. 2. Would recommend continue with antibiotics for now for a course of 1 month. 3. Would recommend applying Santyl dressing changes once a day to the lateral malleolar aspect and will follow with our podiatry colleagues for the patient's progress. 4. Optimize vascular status (blood pressure medications, diet, nutrition, exercise, sugar control, antiplatelets). 5. Discussed findings, plan and management with the patient a certified round up ring hand and he understands. Thank you for allowing us to partake in the care of your patient. Please call with any questions. Dictated By: Tommy Jay MD /prisca/branden /Document#: [id number]
[2017-03-09] MEDS: NITROGLYCERIN 2% 1 GM OINT PKT TD SCH ×2 (05:35→13:58)
[2017-03-09] MEDS: HEPARIN 5,000 UNIT/0.5 ML VIAL SC SCH ×2 (05:40→15:35)
[2017-03-09 05:53] LABS: ADD SCAN DIFF NO
[2017-03-09 05:56] LABS: BASOPHILS % 0.1 % (0.0-2.0); EOSINOPHILS # 0.2 10^3/ul (0.0-0.5); EOSINOPHILS % 3.1 % (0.0-7.0); HEMATOCRIT 31.9 % (42.0-52.0); HEMOGLOBIN 10.7 g/dl (14.0-18.0); LYMPHOCYTES # 1.4 10^3/ul (0.8-2.9); LYMPHOCYTES % 19.9 % (15.0-51.0); MEAN CORPUSCULAR HEMOGLOBIN 31.9 pg (29.0-33.0); MEAN CORPUSCULAR HGB CONC 33.5 g/dl (32.0-37.0); MEAN CORPUSCULAR VOLUME 95.2 fl (82.0-101.0); MEAN PLATELET VOLUME 9.7 fl (7.4-10.4); MONOCYTE # 0.7 10^3/ul (0.3-0.9); MONOCYTES % 10.2 % (0.0-11.0); NEUTROPHIL # 4.5 10^3/ul (1.6-7.5); PLATELET COUNT 325 10^3/UL (140-415); RED BLOOD COUNT 3.35 10^6/ul (4.70-6.10); RED CELL DISTRIBUTION WIDTH 13.2 % (11.5-14.5); WHITE BLOOD COUNT 6.9 10^3/ul (4.8-10.8)
[2017-03-09 07:14] LABS: CALCIUM 9.6 mg/dl (8.4-10.2); CREATININE 13.57 mg/dl (0.61-1.24)
[2017-03-09 07:38] LABS: POTASSIUM 5.5 mmol/L (3.5-5.1)
[2017-03-09] MEDS: INSULIN ASPART [NOVOLOG] 3 ML PEN SC SCH ×3 (08:01→18:00)
[2017-03-09] MEDS: MULTIVIT/CA CARB/B CMPLX/FA TAB PO SCH (09:41)
[2017-03-09] MEDS: DOXYCYCLINE 100 MG TAB PO SCH (09:41)
[2017-03-09] MEDS: FAMOTIDINE 20 MG INJ IV SCH (09:42)
[2017-03-09] MEDS: CALCIUM ACETATE 667 MG CAP PO SCH ×3 (09:42→18:00)
[2017-03-09] MEDS: SEVELAMER 800 MG TAB PO SCH ×3 (09:42→18:00)
--- NOTE | 2017-03-09 13:10 | CONS ---
Date/Time of Note Date/Time of Note DATE: 03/09/17 TIME: 13:09 Assessment/Plan Assessment/Plan Chief Complaint/Hosp Course Alert, no fevers, looks comfortable Indwelling's: Left upper extremity AV fistula Antimicrobials: Doxycycline Microbiology: All cultures remain negative Physical examination: Obese, well-developed middle-aged man who is alert in no distress. Head atraumatic normocephalic sclera nonicteric. Mucosa pink. Neck is supple. Chest rise symmetrical breath sounds clear. Heart: S1- S2. Abdomen soft bowel tones present extremities without cyanosis right lateral malleolus with wound, no drainage Assessment: 1. Right lower extremity resolving cellulitis with diabetic ulceration 2. Diabetes 3. End-stage renal disease, hemodialysis dependent 4. Hypertension Plan: Remain stable, ok dc on Doxycycline for 6 more days, f/u podiatry rec-s [facility] staff Problems: Consultation Date/Type/Reason Admit Date/Time Mar 03, 2017 at 21:28 Initial Consult Date 03/04/17 Type of Consultation: ID Referring Provider: SAVANNAH ANDREWS MD Exam/Review of Systems Vital Signs Vitals Vital Signs Date Time Temp Pulse Resp B/P Pulse Ox O2 Delivery O2 Flow Rate FiO2 03/09/17 08:23 98.8 70 16 133/62 95 03/07/17 16:00 Room Air Intake and Output 03/08/17 03/08/17 03/09/17 15:00 23:00 07:00 Intake Total 350 ml 0 ml Output Total 1 ml Balance 349 ml 0 ml Results Result Diagram: 03/09/17 0512 03/09/17 0512 Results 24 hrs Laboratory Tests Test 03/08/17 17:38 03/08/17 21:48 03/09/17 05:12 03/09/17 07:59 Bedside Glucose 176 214 129 White Blood Count 6.9 Red Blood Count 3.35 L Hemoglobin 10.7 L Hematocrit 31.9 L Mean Corpuscular Volume 95.2 Mean Corpuscular Hemoglobin 31.9 Mean Corpuscular Hemoglobin Concent 33.5 Red Cell Distribution Width 13.2 Platelet Count 325 Mean Platelet Volume 9.7 Neutrophils % 66.0 Lymphocytes % 19.9 Monocytes % 10.2 Eosinophils % 3.1 Basophils % 0.1 Nucleated Red Blood Cells % 0.0 Neutrophils # 4.5 Lymphocytes # 1.4 Monocytes # 0.7 Eosinophils # 0.2 Basophils # 0.0 Nucleated Red Blood Cells # 0.0 Sodium Level 138 Potassium Level 5.5 H Chloride Level 92 L Carbon Dioxide Level 24 Anion Gap 28 H Blood Urea Nitrogen 64 H Creatinine 13.57 H Glucose Level 129 # Calcium Level 9.6 Test 03/09/17 09:34 03/09/17 12:01 Bedside Glucose 140 147 Medications Medications Current Medications Ondansetron HCl (Zofran Inj) 4 mg Q6H PRN IV NAUSEA AND/OR VOMITING; Start at 00:00 Morphine Sulfate (morphine) 2 mg Q4H PRN IV SEVERE PAIN LEVEL 7-10 Last administered on 03/08/17 08:45; Admin Dose 2 MG; Start 03/04/17 at 00:00 Famotidine (Pepcid Iv) 20 mg DAILY IV Last administered on 03/09/17 09:42; Admin Dose 20 MG; Start 03/04/17 at 09:00 Heparin Sodium (Porcine) (Heparin (5000 Units/0.5 ml)) 5,000 unit Q8 SC Last administered on 03/09/17 05:40; Admin Dose 5,000 UNIT; Start 03/04/17 at 06:00 Acetaminophen (Tylenol Tab) 325 mg Q4H PRN PO PAIN AND OR ELEVATED TEMP Last administered on 03/08/17 01:00; Admin Dose 325 MG; Start 03/04/17 at 14:30 Carvedilol (Coreg) 12.5 mg BID PO Last administered on 03/08/17 21:42; Admin Dose 12.5 MG; Start 03/04/17 at 21:00 Labetalol HCl (Normodyne) 200 mg QHS PO Last administered on 03/08/17 21:42; Admin Dose 200 MG; Start 03/04/17 at 21:00 Multivit/Ca Carb/ B Cmplx/FA/Prenat (Keke-Andi) 1 tab DAILY PO Last administered on 03/09/17 09:41; Admin Dose 1 TAB; Start 03/05/17 at 09:00 Diagnostic Test (Pha) (Accu-Chek) 1 ea 02 XX ; Start 03/06/17 at 02:00 Miscellaneous Information 1 ea NOTE XX ; Start 03/05/17 at 20:00 Glucose (Glutose) 15 gm Q15M PRN PO DECREASED GLUCOSE; Start 03/05/17 at 20:00 Glucose (Glutose) 22.5 gm Q15M PRN PO DECREASED GLUCOSE; Start 03/05/17 at 20: 00 Dextrose (D50w Syringe) 25 ml Q15M PRN IV DECREASED GLUCOSE; Start 03/05/17 at 20:00 Dextrose (D50w Syringe) 50 ml Q15M PRN IV DECREASED GLUCOSE; Start 03/05/17 at 20:00 Glucagon (Glucagen) 1 mg Q15M PRN IM DECREASED GLUCOSE; Start 03/05/17 at 20:00 Glucose (Glutose) 15 gm Q15M PRN BUCCAL DECREASED GLUCOSE; Start 03/05/17 at 20 :00 Nitroglycerin (Nitroglycerin 2% Oint) 1 inch Q8 TD Last administered on 05:35; Admin Dose 1 INCH; Start 03/06/17 at 22:00 Hydralazine HCl (Apresoline) 20 mg Q6H PRN IV ELEVATED BLOOD PRESSURE Last administered on 03/06/17 21:17; Admin Dose 20 MG; Start 03/06/17 at 20:30 Miscellaneous Information (Pending Santyl Order For Wound Care) This patient downing... PRN PRN XX WOUND CARE; Start 03/07/17 at 10:30 Collagenase (Santyl) 1 applic DAILY TOP Last administered on 03/08/17 08:45; Admin Dose 1 APPLIC; Start 03/07/17 at 11:00 Collagenase (Santyl) 1 applic PRN PRN TOP WOUND CARE; Start 03/07/17 at 11:00 Doxycycline Hyclate (Vibramycin) 100 mg BID PO Last administered on 03/09/17 09:41; Admin Dose 100 MG; Start 03/08/17 at 21:00 Zolpidem Tartrate (Ambien) 5 mg HS PRN PO INSOMNIA; Start 03/08/17 at 21:00 RED CURIEL NP Mar 09, 2017 13:10
[2017-03-09] MEDS: hydrALAzine 20 MG INJ IV PRN (13:57)
--- NOTE | 2017-03-09 14:56 | CONS ---
Date/Time of Note Date/Time of Note DATE: 03/09/17 TIME: 14:55 Assessment/Plan Assessment/Plan Additional Assessment/Plan 1) Right lower extremity cellulitis 2) End-stage renal disease on hemodialysis 3) Hyperkalemia 4) Diabetes mellitus 5) Chronic Hypertension Cont maintenance HD Schedule 4x week Next HD today Dose IV ABx to ESRD Thank you for the opportunity to participate in the care of Mr Mata. Consultation Date/Type/Reason Admit Date/Time Mar 03, 2017 at 21:28 Initial Consult Date 03/04/17 Type of Consultation: Renal Referring Provider: SAVANNAH ANDREWS MD 24 HR Interval Summary Free Text/Dictation Pending HD Exam/Review of Systems Vital Signs Vitals Vital Signs Date Time Temp Pulse Resp B/P Pulse Ox O2 Delivery O2 Flow Rate FiO2 03/09/17 14:33 98.3 72 18 194/64 97 03/07/17 16:00 Room Air Intake and Output 03/08/17 03/08/17 03/09/17 15:00 23:00 07:00 Intake Total 350 ml 0 ml Output Total 1 ml Balance 349 ml 0 ml Exam Constitutional: No distress ENMT: mucosa pink and moist Respiratory: No labored breathing Cardiovascular: edema, regular rate and rhythm Gastrointestinal: non-tender, soft Neurological: nl mental status, No lethargic Results Result Diagram: 03/09/17 0512 03/09/17 0512 Results 24 hrs Laboratory Tests Test 03/08/17 17:38 03/08/17 21:48 03/09/17 05:12 03/09/17 07:59 Bedside Glucose 176 214 129 White Blood Count 6.9 Red Blood Count 3.35 L Hemoglobin 10.7 L Hematocrit 31.9 L Mean Corpuscular Volume 95.2 Mean Corpuscular Hemoglobin 31.9 Mean Corpuscular Hemoglobin Concent 33.5 Red Cell Distribution Width 13.2 Platelet Count 325 Mean Platelet Volume 9.7 Neutrophils % 66.0 Lymphocytes % 19.9 Monocytes % 10.2 Eosinophils % 3.1 Basophils % 0.1 Nucleated Red Blood Cells % 0.0 Neutrophils # 4.5 Lymphocytes # 1.4 Monocytes # 0.7 Eosinophils # 0.2 Basophils # 0.0 Nucleated Red Blood Cells # 0.0 Sodium Level 138 Potassium Level 5.5 H Chloride Level 92 L Carbon Dioxide Level 24 Anion Gap 28 H Blood Urea Nitrogen 64 H Creatinine 13.57 H Glucose Level 129 # Calcium Level 9.6 Test 03/09/17 09:34 03/09/17 12:01 Bedside Glucose 140 147 Medications Medications Current Medications Ondansetron HCl (Zofran Inj) 4 mg Q6H PRN IV NAUSEA AND/OR VOMITING; Start at 00:00 Morphine Sulfate (morphine) 2 mg Q4H PRN IV SEVERE PAIN LEVEL 7-10 Last administered on 03/08/17 08:45; Admin Dose 2 MG; Start 03/04/17 at 00:00 Famotidine (Pepcid Iv) 20 mg DAILY IV Last administered on 03/09/17 09:42; Admin Dose 20 MG; Start 03/04/17 at 09:00 Heparin Sodium (Porcine) (Heparin (5000 Units/0.5 ml)) 5,000 unit Q8 SC Last administered on 03/09/17 05:40; Admin Dose 5,000 UNIT; Start 03/04/17 at 06:00 Acetaminophen (Tylenol Tab) 325 mg Q4H PRN PO PAIN AND OR ELEVATED TEMP Last administered on 03/08/17 01:00; Admin Dose 325 MG; Start 03/04/17 at 14:30 Carvedilol (Coreg) 12.5 mg BID PO Last administered on 03/08/17 21:42; Admin Dose 12.5 MG; Start 03/04/17 at 21:00 Labetalol HCl (Normodyne) 200 mg QHS PO Last administered on 03/08/17 21:42; Admin Dose 200 MG; Start 03/04/17 at 21:00 Multivit/Ca Carb/ B Cmplx/FA/Prenat (Keke-Andi) 1 tab DAILY PO Last administered on 03/09/17 09:41; Admin Dose 1 TAB; Start 03/05/17 at 09:00 Diagnostic Test (Pha) (Accu-Chek) 1 ea 02 XX ; Start 03/06/17 at 02:00 Miscellaneous Information 1 ea NOTE XX ; Start 03/05/17 at 20:00 Glucose (Glutose) 15 gm Q15M PRN PO DECREASED GLUCOSE; Start 03/05/17 at 20:00 Glucose (Glutose) 22.5 gm Q15M PRN PO DECREASED GLUCOSE; Start 03/05/17 at 20: 00 Dextrose (D50w Syringe) 25 ml Q15M PRN IV DECREASED GLUCOSE; Start 03/05/17 at 20:00 Dextrose (D50w Syringe) 50 ml Q15M PRN IV DECREASED GLUCOSE; Start 03/05/17 at 20:00 Glucagon (Glucagen) 1 mg Q15M PRN IM DECREASED GLUCOSE; Start 03/05/17 at 20:00 Glucose (Glutose) 15 gm Q15M PRN BUCCAL DECREASED GLUCOSE; Start 03/05/17 at 20 :00 Nitroglycerin (Nitroglycerin 2% Oint) 1 inch Q8 TD Last administered on 05:35; Admin Dose 1 INCH; Start 03/06/17 at 22:00 Hydralazine HCl (Apresoline) 20 mg Q6H PRN IV ELEVATED BLOOD PRESSURE Last administered on 03/06/17 21:17; Admin Dose 20 MG; Start 03/06/17 at 20:30 Miscellaneous Information (Pending Santyl Order For Wound Care) This patient downing... PRN PRN XX WOUND CARE; Start 03/07/17 at 10:30 Collagenase (Santyl) 1 applic DAILY TOP Last administered on 03/08/17 08:45; Admin Dose 1 APPLIC; Start 03/07/17 at 11:00 Collagenase (Santyl) 1 applic PRN PRN TOP WOUND CARE; Start 03/07/17 at 11:00 Doxycycline Hyclate (Vibramycin) 100 mg BID PO Last administered on 03/09/17 09:41; Admin Dose 100 MG; Start 03/08/17 at 21:00 Zolpidem Tartrate (Ambien) 5 mg HS PRN PO INSOMNIA; Start 03/08/17 at 21:00 ADAM DUVAL MD Mar 09, 2017 14:56
[2017-03-09] MEDS: COLLAGENASE 30 GM TUBE TOP SCH (16:18)
[2017-03-09] MEDS ORDERED: SAN30GM TOP (16:24)
[2017-03-09] MEDS ORDERED: DOXY100T2 PO (16:24)
--- NOTE | 2017-03-09 19:13 | DS ---
Date/Time of Note Date/Time of Note DATE: 03/09/17 TIME: 19:10 Discharge Summary Admission/Discharge Info Admit Date/Time Mar 03, 2017 at 21:28 Discharge Date/Time Patient Condition: Stable Hx of Present Illness The patient is 46-year-old gentleman with end-stage renal disease on hemodialysis Tuesday and Tuesday, diabetes, hypertension. The patient did develop diabetic ulcer of the right lower extremities and was seen at the other hospital and was discharged with p.o. antibiotics. Patient noticed increasing redness tenderness and purulent discharge from the wound and presented to the [facility] emergency room. Patient with extensive history of a left foot ulcer status post multiple vascular surgeries in the past. Patient denies any fever chills, denies any nausea vomiting denies any chest pain denies any shortness of breath. Patient is due for hemodialysis today usually follow-up with Dr. De Santiago from nephrology standpoint. Hospital Course -Right lower extremity cellulitis with right malleolus ulcer, Dr. Tirado is following from infectious disease standpoint. Continue antibiotics per ID. Dr. Douglass is following from podiatry standpoint. Dr. Jay is following in vascular surgery consultation. Patient was getting broad-spectrum antibiotics. Continues daily Centany ointment to the wound, patient's condition improved and she was discharged home on p.o. doxycycline for 6 more days. -End-stage renal disease on hemodialysis 4 times a week, Dr. De Santiago is following in nephrology consultation. -Hyperkalemia secondary to end-stage renal disease, resolved. -Diabetes mellitus type 2, continue Lantus and NovoLog. -Hypertension, continue Coreg and clonidine. Home Meds Active Scripts Collagenase* (Santyl*) 30 Gm Oint..gm., 1 APPLIC TOP DAILY for 14 Days Prov:CHARLINE ALMENDAREZ 03/09/17 Doxycycline* (Vibramycin*) 100 Mg Tab, 100 MG PO BID for 6 Days, TAB Prov:CHARLINE ALMENDAREZ 03/09/17 Reported Medications Calcium Acetate* (Phoslo*) 667 Mg Tablet, 1334 MG PO WITH MEALS, TAB 02/10/15 Insulin Aspart* (Novolog Insulin Vial*) 100 U/Ml Vial, 0 SC SLIDING SCALE AC, VIAL 02/10/15 Diphenoxylate Hcl-Atropine* (Lomotil*) 1 Tab Tab, 1 TAB PO Q6H Y for DIARRHEA, TAB 02/10/15 Labetalol Hcl* (Labetalol Hcl*) 100 Mg Tablet, 200 MG PO QHS, TAB 02/10/15 Lanthanum Carbonate* (Fosrenol*) 500 Mg Tab.chew, 500 MG PO BID, TAB.CHEW WITH MEALS 02/10/15 Clonidine Hcl* (Clonidine Hcl*) 0.2 Mg Tablet, 0.2 MG PO BID NEEDED for HTN, TAB 02/10/15 Sevelamer Hcl* (Renagel*) 800 Mg Tablet, 1600 MG PO TID, TAB 02/10/15 Multivit/Ca Carb/B Cmplx/Fa* (Keke-Andi*) 1 Tab Tab, 1 TAB PO DAILY, TAB 02/10/15 Carvedilol* (Coreg*) 12.5 Mg Tablet, 12.5 MG PO BID, TAB 02/10/15 Acetaminophen* (Acetaminophen*) 325 Mg Tablet, 325 MG PO Q4H Y for PAIN AND OR ELEVATED TEMP, TAB 02/10/15 Follow-up Plan Follow-up with Dr. Villalta and Dr. Jay in amputation prevention center in 2 weeks. Primary Care Provider Zi De Santiago MD Time spent on discharge: > 30 minutes Pending Labs Laboratory Tests Test 03/08/17 21:48 03/09/17 05:12 03/09/17 07:59 03/09/17 09:34 Bedside Glucose 214mg/dL (70-220) 129mg/dL (70-220) 140mg/dL (70-220) White Blood Count 6.910^3/ul (4.8-10.8) Red Blood Count 3.3510^6/ul (4.70-6.10) Hemoglobin 10.7g/dl (14.0-18.0) Hematocrit 31.9% (42.0-52.0) Mean Corpuscular Volume 95.2fl (82.0-101.0) Mean Corpuscular Hemoglobin 31.9pg (29.0-33.0) Mean Corpuscular Hemoglobin Concent 33.5g/dl (32.0-37.0) Red Cell Distribution Width 13.2% (11.5-14.5) Platelet Count 59312^3/UL (140-415) Mean Platelet Volume 9.7fl (7.4-10.4) Neutrophils % 66.0% (39.0-77.0) Lymphocytes % 19.9% (15.0-51.0) Monocytes % 10.2% (0.0-11.0) Eosinophils % 3.1% (0.0-7.0) Basophils % 0.1% (0.0-2.0) Nucleated Red Blood Cells % 0.0/100WBC (0.0-0.0) Neutrophils # 4.510^3/ul (1.6-7.5) Lymphocytes # 1.410^3/ul (0.8-2.9) Monocytes # 0.710^3/ul (0.3-0.9) Eosinophils # 0.210^3/ul (0.0-0.5) Basophils # 0.010^3/ul (0.0-0.1) Nucleated Red Blood Cells # 0.010^3/ul (0.0-0.0) Sodium Level 138mmol/L (135-144) Potassium Level 5.5mmol/L (3.5-5.1) Chloride Level 92mmol/L (97-110) Carbon Dioxide Level 24mmol/L (21-31) Anion Gap 28 (8-16) Blood Urea Nitrogen 64mg/dl (7-20) Creatinine 13.57mg/dl (0.61-1.24) Glucose Level 129mg/dl (70-220) Calcium Level 9.6mg/dl (8.4-10.2) Test 03/09/17 12:01 03/09/17 17:47 Bedside Glucose 147mg/dL (70-220) 164mg/dL (70-220) CHARLINE ALMENDAREZ Mar 09, 2017 19:12
== END 2017-03-09 20:10 | disposition home or self-care (01) | DRG 602 ==
LOC: FTE 19:18 → TEL 21:28 → MS2 03-08 22:31
PROVIDERS: ADMIT Internal Medicine; ATTEND Internal Medicine
PROC: 5A1D60Z (ICD-10-PCS; principal; 2017-03-04)
DX: L03.115 Cellulitis of right lower limb (principal); N18.6 End stage renal disease; E13.622 Other specified diabetes mellitus with other skin ulcer; I12.0 Hypertensive chronic kidney disease with stage 5 chronic kidney disease or end stage renal disease; L97.319 Non-pressure chronic ulcer of right ankle with unspecified severity; E87.5 Hyperkalemia; D63.8 Anemia in other chronic diseases classified elsewhere; E66.9 Obesity, unspecified; Z68.37 Body mass index [BMI] 37.0-37.9, adult; I25.10 Atherosclerotic heart disease of native coronary artery without angina pectoris; H54.8 Legal blindness, as defined in USA; I70.233 Atherosclerosis of native arteries of right leg with ulceration of ankle; Z99.2 Dependence on renal dialysis; E11.65 Type 2 diabetes mellitus with hyperglycemia
CPT/HCPCS: 36415; 73590; 80048; 80053; 80202; 82962; 83036; 84484; 85025; 85610; 85730; 87040; 87070; 87081; 90935; 93005; 93922; 94644; 96372; 96374; 96375; J0360; J1335; J1644; J1815; J1940; J2270; J2543; J3370

== ENCOUNTER 2017-04-20 02:26 | Inpatient (IN) | payer MEDICARE, OTHER ==
[~2017-04-20] VITALS: Ht 170.2 cm; Wt 90.0 kg
[2017-04-20] VITALS (13 sets, daily range): BP systolic 118–177; BP diastolic 50–89; PULSE 65–75; RESP 18; TEMP 98.9; Ht 170.2 cm; Wt 90.0 kg
[~2017-04-20 02:26] MED LIST changes: +DOXY100T2 PO; +SAN30GM TOP
--- NOTE | 2017-04-20 06:16 | RADRPT ---
PROCEDURE: XR Chest. CLINICAL INDICATION: Sepsis TECHNIQUE: AP Portable chest. COMPARISON: No pertinent prior examinations were submitted for comparison. FINDINGS: The cardiomediastinal silhouette is enlarged. The lung volumes are low. Bibasilar opacities are vi sualized. No pleural effusion or pneumothorax is seen. The osseous structures are intact. IMPRESSION: Low lung volumes. Bibasilar opacities which represent infiltrate or atelectasis. Cardiomegaly. Physician Yao Date Time Electronically viewed and signed by Physician Yao on 04/20/2017 06:16 /
[2017-04-20] MEDS ORDERED: CEFEPIME 2GM/50 ML (PMX) 50 ML IVPB STA (06:32)
[2017-04-20] MEDS ORDERED: ACETAMINOPHEN 500 MG TAB PO STA (06:32)
[2017-04-20 06:47] LABS: BASOPHILS % 0.2 % (0.0-2.0); EOSINOPHILS # 0.1 10^3/ul (0.0-0.5); EOSINOPHILS % 1.4 % (0.0-7.0); HEMATOCRIT 30.1 % (42.0-52.0); HEMOGLOBIN 9.9 g/dl (14.0-18.0); LYMPHOCYTES # 1.5 10^3/ul (0.8-2.9); LYMPHOCYTES % 18.2 % (15.0-51.0); MEAN CORPUSCULAR HEMOGLOBIN 31.5 pg (29.0-33.0); MEAN CORPUSCULAR HGB CONC 32.9 g/dl (32.0-37.0); MEAN CORPUSCULAR VOLUME 95.9 fl (82.0-101.0); MEAN PLATELET VOLUME 10.5 fl (7.4-10.4); MONOCYTE # 1.4 10^3/ul (0.3-0.9); MONOCYTES % 17.1 % (0.0-11.0); NEUTROPHILS % 62.9 % (39.0-77.0); PLATELET COUNT 211 10^3/UL (140-415); RED BLOOD COUNT 3.14 10^6/ul (4.70-6.10); WHITE BLOOD COUNT 8.1 10^3/ul (4.8-10.8)
[2017-04-20 06:54] LABS: INR 1.07; PROTIME 13.9 Sec (12.2-14.2); PT RATIO 1.1
[2017-04-20 06:55] LABS: PARTIAL THROMBOPLASTIN TIME 31.9 Sec (25.0-35.0)
[2017-04-20 06:57] LABS: ALBUMIN 4.2 g/dl (3.3-4.9); ALBUMIN/GLOBULIN RATIO 0.91; CALCIUM 8.7 mg/dl (8.4-10.2); CREATININE 11.02 mg/dl (0.61-1.24); TOTAL PROTEIN 8.8 g/dl (6.1-8.1)
[2017-04-20] MEDS ORDERED: VANCOMYCIN 1 GM (PMX) 250 ML IVPB ONE (07:00)
[2017-04-20 07:08] LABS: TROPONIN-I 0.023 ng/ml (0.00-0.12)
[2017-04-20 07:22] LABS: POTASSIUM 5.4 mmol/L (3.5-5.1)
--- NOTE | 2017-04-20 07:35 | RADRPT ---
PROCEDURE: CT of the abdomen and pelvis without contrast CLINICAL INDICATION: Abdominal Pain. TECHNIQUE: Spiral CT images through the abdomen and pelvis without the use of contrast. The admin istered radiation dose is CTDI 21.88 and DLP 1586.45. One or more of the following dose reduction t echniques were used: automated exposure control, adjustment of the mA and/or kV according to patient size, or use of iterative reconstruction technique. COMPARISON: None FINDINGS: Lack of oral and intravenous contrast somewhat limits evaluation. There are extensive bilateral i nterstitial densities and atelectasis.. No pleural effusion is seen. The heart is dilated without ev idence of a pericardial effusion. The liver and spleen are enlarged.. The adrenal glands and pancreas are unremarkable. There is luther dence of cholelithiasis or biliary ductal dilatation. The kidneys are mildly atrophic. There are bi lateral renal vascular calcifications. No evidence of obstructive uropathy. The aorta is calcified and normal in caliber. There is no evidence for bowel obstruction, free air, or abscess. The appe ndix is normal in appearance. The colon is fecal filled. No adenopathy or ascites is seen. The blad yoli wall is thickened, likely due to underdistention. The prostate gland is enlarged. There is bod y edema.. There are mild degenerative changes in the spine. IMPRESSION: Bilateral interstitial infiltrates or edema. Cardiomegaly. Atrophic kidneys and bilateral renal vascular calcifications. Prostatic hypertrophy. Mild diffuse body edema. RPTAT: HCNS Physician Yao Date Time Electronically viewed and signed by Physician Yao on 04/20/2017 07:35 CS/
[2017-04-20] MEDS ORDERED: ONDANSETRON 4 MG INJ IV PRN (09:00)
[2017-04-20] MEDS ORDERED: ACETAMINOPHEN 325 MG TAB PO PRN (09:00)
--- NOTE | 2017-04-20 09:14 | ERA ---
ER Documentation Chief Complaint Date/Time DATE: 04/20/17 TIME: 09:10 Chief Complaint Dysuria noted. Hx: RF(Oliguric), right out heel wound. Hx: DM, HTN, Blind L HPI 46-year-old male history of end-stage renal disease on dialysis Tuesday, Tuesday, Tuesday who has not had dialysis today. The patient presents with suprapubic abdominal discomfort and description of dysuria though he does not make urine. He also notes a low-grade fever. No cough no shortness of breath. ROS All systems reviewed and are negative except as per history of present illness. Medications Home Meds Active Scripts Collagenase* (Santyl*) 30 Gm Oint..gm., 1 APPLIC TOP DAILY for 14 Days Prov:CHARLINE ALMENDAREZ 03/09/17 Doxycycline* (Vibramycin*) 100 Mg Tab, 100 MG PO BID for 6 Days, TAB Prov:CHARLINE ALMENDAREZ 03/09/17 Reported Medications Calcium Acetate* (Phoslo*) 667 Mg Tablet, 1334 MG PO WITH MEALS, TAB 02/10/15 Insulin Aspart* (Novolog Insulin Vial*) 100 U/Ml Vial, 0 SC SLIDING SCALE AC, VIAL 02/10/15 Diphenoxylate Hcl-Atropine* (Lomotil*) 1 Tab Tab, 1 TAB PO Q6H Y for DIARRHEA, TAB 02/10/15 Labetalol Hcl* (Labetalol Hcl*) 100 Mg Tablet, 200 MG PO QHS, TAB 02/10/15 Lanthanum Carbonate* (Fosrenol*) 500 Mg Tab.chew, 500 MG PO BID, TAB.CHEW WITH MEALS 02/10/15 Clonidine Hcl* (Clonidine Hcl*) 0.2 Mg Tablet, 0.2 MG PO BID NEEDED for HTN, TAB 02/10/15 Sevelamer Hcl* (Renagel*) 800 Mg Tablet, 1600 MG PO TID, TAB 02/10/15 Multivit/Ca Carb/B Cmplx/Fa* (Keke-Andi*) 1 Tab Tab, 1 TAB PO DAILY, TAB 02/10/15 Carvedilol* (Coreg*) 12.5 Mg Tablet, 12.5 MG PO BID, TAB 02/10/15 Acetaminophen* (Acetaminophen*) 325 Mg Tablet, 325 MG PO Q4H Y for PAIN AND OR ELEVATED TEMP, TAB 02/10/15 Allergies Allergies: Coded Allergies: No Known Allergies (Unverified Allergy, Unknown, 04/20/17) PMhx/Soc History of Surgery: Yes (LEFT FOOT, FISTULA -LUE) Anesthesia Reaction: No Hx Neurological Disorder: No Hx Respiratory Disorders: No Hx Cardiac Disorders: Yes (HYPERLIPIDEMIA) Hx Psychiatric Problems: No Hx Miscellaneous Medical Probl: Yes (DIABETES) Hx Alcohol Use: No Hx Substance Use: No Hx Tobacco Use: No Smoking Status: Never smoker FmHx Family History: No diabetes Physical Exam Vitals Vital Signs Date Time Temp Pulse Resp B/P Pulse Ox O2 Delivery O2 Flow Rate FiO2 04/20/17 07:51 100.2 74 18 148/90 93 Room Air 04/20/17 06:18 Nasal Cannula 2 04/20/17 05:51 73 18 150/97 93 Room Air 04/20/17 02:39 100.2 97 18 173/75 97 Physical Exam General: Well developed, well nourished, no acute distress Head: Normocephalic, atraumatic. Eyes: Pupils equally reactive, EOM intact ENT: Moist mucous membranes Neck: Supple, no lymphadenopathy Respiratory: Lungs clear bilaterally, no distress Cardiovascular: RRR, no murmurs, rubs, or gallops Abdominal: Soft, Mild suprapubic tenderness without rebound or guarding : Deferred MSK: No edema, no unilateral swelling, 5/5 strength Neurologic: Alert and oriented, moving all extremities, normal speech, no focal weakness, no cerebellar signs Skin: No rash Psych: Normal mood Result Diagram: 04/20/17 0604/20/17 0605 Results 24 hrs Laboratory Tests Test 04/20/17 06:05 04/20/17 07:47 White Blood Count 8.110^3/ul Red Blood Count 3.1410^6/ul Hemoglobin 9.9g/dl Hematocrit 30.1% Mean Corpuscular Volume 95.9fl Mean Corpuscular Hemoglobin 31.5pg Mean Corpuscular Hemoglobin Concent 32.9g/dl Red Cell Distribution Width 15.0% Platelet Count 88422^3/UL Mean Platelet Volume 10.5fl Neutrophils % 62.9% Lymphocytes % 18.2% Monocytes % 17.1% Eosinophils % 1.4% Basophils % 0.2% Nucleated Red Blood Cells % 0.0/100WBC Neutrophils # (Manual) 5.110^3/ul Lymphocytes # 1.510^3/ul Monocytes # 1.410^3/ul Eosinophils # 0.110^3/ul Basophils # 0.010^3/ul Nucleated Red Blood Cells # 0.010^3/ul Prothrombin Time 13.9Sec Prothrombin Time Ratio 1.1 INR International Normalized Ratio 1.07 Activated Partial Thromboplast Time 31.9Sec Sodium Level 135mmol/L Potassium Level 5.4mmol/L Chloride Level 86mmol/L Carbon Dioxide Level 29mmol/L Anion Gap 25 Blood Urea Nitrogen 79mg/dl Creatinine 11.02mg/dl Glucose Level 159mg/dl Lactic Acid Level 1.0mmol/L 0.9mmol/L Calcium Level 8.7mg/dl Total Bilirubin 0.0mg/dl Direct Bilirubin 0.00mg/dl Indirect Bilirubin 0.0mg/dl Aspartate Amino Transf (AST/SGOT) 21IU/L Alanine Aminotransferase (ALT/SGPT) 21IU/L Alkaline Phosphatase 141IU/L Troponin I 0.023ng/ml Total Protein 8.8g/dl Albumin 4.2g/dl Globulin 4.60g/dl Albumin/Globulin Ratio 0.91 Current Medications Medications (Trade) Dose Ordered Sig/Kait Route PRN Reason Start Time Stop Time Status Last Admin Dose Admin Acetaminophen 1000 mg 1,000 mg ONCE STAT PO 04/20/17 06:32 04/20/17 06:35 DC 04/20/17 07:16 Cefepime HCl 50 ml @ 100 mls/hr ONCE STAT IVPB 04/20/17 06:32 04/20/17 07:01 DC 04/20/17 07:15 Vancomycin HCl (Vancocin) 250 ml @ 125 mls/hr ONCE ONCE IVPB 04/20/17 07:00 04/20/17 09:03 DC 04/20/17 08:33 Ondansetron HCl (Zofran Inj) 4 mg ER BRIDGE PRN IV NAUSEA AND/OR VOMITING 04/20/17 09:00 04/21/17 08:59 Acetaminophen (Tylenol Tab) 650 mg ER BRIDGE PRN PO MILD PAIN/FEVER 04/20/17 09:00 04/21/17 08:59 Procedures/MDM EKG, MONITORS, & DIAGNOSTIC IMAGING: EKG: I reviewed and interpreted a 12-lead EKG. Rhythm: Normal sinus rhythm Ectopy: None Intervals: No abnormalities ST segments: No elevations or depressions T waves: No contiguous inversions Chest x-ray: I reviewed and interpreted a 1 view of the chest Mediastinum: No enlargement Cardiac silhouette: No cardiomegaly Airspace: Clear lung groves bilaterally without evidence of pneumothorax Bones: No evidence of fracture LAB INTERPRETATION: No leukocytosis, normal lactic acid, slightly elevated potassium, elevated BUN and creatinine consistent with chronic renal insufficiency and failure MEDICAL DECISION MAKING: The patient presents with low-grade fever and suprapubic abdominal discomfort. Broad differential but sepsis screening requires initiation. The patient also received dialysis and concern for bacteremia. The patient will benefit from sepsis screening, broad-spectrum antibiotics and inpatient hospitalization. No evidence of volume overload. Borderline potassium elevation without EKG changes. No indication for Kayexalate or calcium. The patient will benefit from dialysis today. ER COURSE: Vancomycin and cefepime provided after blood cultures. The patient has not required aggressive fluid resuscitation given his history of end-stage renal disease. The patient does not meet SIRS criteria and this is not consistent with sepsis. Sepsis screening was initiated however the patient does not require 30 cc/kg of saline at this point. Continue to monitor. I kept the patient and/or family informed of laboratory and diagnostic imaging results throughout the emergency room course. DISPOSITION PLAN: Telemetry admission for management of borderline hyperkalemia requiring dialysis and sepsis screening, culture monitoring CONSULTATION: Accepting care team and consultations: I discussed the current laboratory data, diagnostic imaging and emergency care provided. Admitting team: Dr. Casiano who was admitted this patient in the past Admitting team indication: Insurance directed Consulting services: Dr. Torres on-call for Dr. De Santiago Departure Diagnosis: Primary Impression: End stage renal disease on dialysis Additional Impression: Abdominal pain Qualified Code: R10.9 - Abdominal pain, unspecified abdominal location Condition: Stable TOAN CHISHOLM MD Apr 20, 2017 09:14
[2017-04-20] MEDS: SEVELAMER 800 MG TAB PO SCH ×2 (13:00→23:12)
--- NOTE | 2017-04-20 14:56 | HP ---
DATE OF ADMISSION: 04/20/2017 CHIEF COMPLAINT: Dysuria and lower abdominal pain. HISTORY OF PRESENT ILLNESS: The patient is 46-year-old gentleman with end-stage renal disease, hemodialysis dependent. Usually has hemodialysis on Tuesday, Tuesday, Tuesday. Patient with diabetes, hypertension and left eye blindness. This is a patient with history of bilateral wounds, status post multiple surgeries on left lower extremity with skin grafts and a right malleolar wound. The patient developed suprapubic abdominal pain and dysuria for the last couple of days. Patient stated he took p.o. antibiotics given by primary doctor, however, with no improvement in symptoms and patient presented to the emergency room. On evaluation in emergency room, patient had fever of 100.2. The patient was also noted to have hyperkalemia with potassium 5.4. The patient denies any productive cough. Denies any nausea, vomiting. Denies any diarrhea. Denies any chest pain. Denies any shortness of breath. After blood and urine cultures were collected, patient was started on broad-spectrum antibiotics. The patient will be admitted for further evaluation and management. The patient also has a right malleolar wound with black eschar. PAST MEDICAL HISTORY: Positive for end-stage renal disease, hemodialysis dependent, diabetes, hyperlipidemia. PAST SURGICAL HISTORY: Status post left upper extremity AV fistula creation, multiples surgeries with skin grafts of left lower extremity. Eye surgery. Status post incision and drainage of scrotal abscess. FAMILY HISTORY: Positive for diabetes and coronary artery disease. SOCIAL HISTORY: Patient lives at home. Patient denies any tobacco use. Denies any alcohol use. Denies any illicit drug use. ALLERGIES: NO KNOWN ALLERGIES. MEDICATIONS: Home medications include: 1. Tylenol. 2. PhosLo. 3. Coreg. 4. Clonidine. 5. Santyl ointment. 6. Lomotil p.r.n. 7. Insulin. 8. Labetalol, 9. Phos renal. 10. Keke-Andi. 11. Renagel. REVIEW OF SYSTEMS: Twelve point review of systems is negative unless mentioned. PHYSICAL EXAMINATION: GENERAL: Well-developed obese gentleman who currently is awake, alert. VITAL SIGNS: Temperature 100.2, pulse 78, blood pressure 141/72, respiratory rate 18, oxygen saturation 93 percent on room air. HEENT: Head is atraumatic, normocephalic. Patient has a left eye blindness since . NECK: Supple. No cervical lymphadenopathy. No thyromegaly. CHEST: Lungs clear bilaterally. There are no rhonchi, wheezes, rales noted. CARDIOVASCULAR: Normal S1, S2. No murmurs, gallops, clicks, rubs noted. ABDOMEN: Protuberant, soft, nondistended, nontender. Bowel sounds present. EXTREMITIES: No edema, clubbing, cyanosis. SKIN: Patient has a right malleolar wound with black eschar. The left lower extremity was status post skin graft, healed. Left upper extremity with AV fistula, currently used for hemodialysis. NEUROLOGIC: Patient is awake, alert, and oriented x4. Moves all extremities. LABORATORY DATA: CBC: White blood cells 8.1, hemoglobin 9.9, hematocrit 30.1, platelets 211. Chemistry: Sodium is 135, potassium 5.4, chloride 86, carbon dioxide 29, anion gap 25, BUN is 79, creatinine 11.02, glucose 159, AST 21, ALT is 21, alkaline phosphate is 141. Lactic acid is 1. ASSESSMENT AND PLAN: 1. Possible urinary tract infection. Will obtain urine culture. Continue the patient on broad-spectrum antibiotics. Dr. Tirado will be following patient from infectious disease consultation. 2. End-stage renal disease, hemodialysis dependent. Dr. De Santiago will be following in Nephrology consultation. Patient is undergoing hemodialysis. 3. Hyperkalemia. Continue hemodialysis. 4. Diabetes mellitus. Will continue Lantus and NovoLog. 5. Hypertension. 6. Right malleolar wound with black eschar. Will ask Dr. Jay to see patient in vascular surgery consultation and Dr. Douglass to see patient in podiatry consultation. 7. Anemia. We will continue to monitor hemoglobin and hematocrit. No indication for transfusion at this time. 8. Continue heparin for deep venous thrombosis prophylaxis and Pepcid for peptic ulcer disease prophylaxis. 9. Further recommendations based on clinical course. Plan of care discussed with Dr. Casiano. Dictated By: Georgette Lomeli NP /prisca/logan /Document#: [id number]
[2017-04-20] MEDS ORDERED: DEXTROSE 50% 50 ML SYRINGE IV PRN ×2 (17:00)
[2017-04-20] MEDS ORDERED: GLUCAGON 1 MG INJ IM PRN (17:00)
[2017-04-20] MEDS ORDERED: GLUCOSE GEL 15 GRAM TUBE PO PRN ×2 (17:00)
[2017-04-20] MEDS ORDERED: GLUCOSE GEL 15 GRAM TUBE BUCCAL PRN (17:00)
--- NOTE | 2017-04-20 19:57 | CONS ---
Date/Time of Note Date/Time of Note DATE: 04/20/17 TIME: 19:55 Assessment/Plan Assessment/Plan Additional Assessment/Plan 1. Possible urinary tract infection. fe 2. End-stage renal disease, hemodialysis dependent. 3. Hyperkalemia. 4. Diabetes mellitus. 5. Hypertension. 6. Right malleolar wound with black eschar. 7. Anemia. Consultation Date/Type/Reason Admit Date/Time Apr 20, 2017 at 09:00 Date of Consultation: Apr 20, 2017 Type of Consultation: Renal Reason for Consultation ESRD Referring Provider: SAVANNAH ANDREWS MD Hx of Present Illness 46-year-old gentleman with end-stage renal disease, hemodialysis dependent. Usually has hemodialysis on Tuesday, Tuesday, Tuesday. Patient with diabetes, hypertension and left eye blindness. Nephrology consulted for ESRD Constitutional: No requiring O2 Past Medical History Medical History: diabetes, hypertension, renal disease Past Surgical History Past Surgical Hx: other (avf) Family History Significant Family History: no pertinent family hx Social History Alcohol Use: none Smoking Status: Never smoker Drug Use: none Exam/Review of Systems Vital Signs Vitals Vital Signs Date Time Temp Pulse Resp B/P Pulse Ox O2 Delivery O2 Flow Rate FiO2 04/20/17 17:56 65 18 162/77 99 Room Air 04/20/17 15:50 98.9 04/20/17 06:18 2 Exam Constitutional: No distress Psych: nl mood/affect Head: atraumatic Eyes: EOMI Neck: supple, No jvd Respiratory: clear to auscultation Cardiovascular: edema, regular rate and rhythm Gastrointestinal: non-tender, soft Neurological: CLINIC ASSISTANT II-XII intact, nl mental status, No focal weakness, No lethargic Skin: No diaphoresis, No rash or lesions Results Result Diagram: 04/20/17 0605 04/20/17 0605 Results 24 hrs Laboratory Tests Test 04/20/17 06:05 04/20/17 07:47 04/20/17 09:59 04/20/17 19:09 White Blood Count 8.1 Red Blood Count 3.14 L Hemoglobin 9.9 L Hematocrit 30.1 L Mean Corpuscular Volume 95.9 Mean Corpuscular Hemoglobin 31.5 Mean Corpuscular Hemoglobin Concent 32.9 Red Cell Distribution Width 15.0 H Platelet Count 211 # Mean Platelet Volume 10.5 H Neutrophils % 62.9 Lymphocytes % 18.2 Monocytes % 17.1 H Eosinophils % 1.4 Basophils % 0.2 Nucleated Red Blood Cells % 0.0 Neutrophils # (Manual) 5.1 Lymphocytes # 1.5 Monocytes # 1.4 H Eosinophils # 0.1 Basophils # 0.0 Nucleated Red Blood Cells # 0.0 Prothrombin Time 13.9 Prothrombin Time Ratio 1.1 INR International Normalized Ratio 1.07 Activated Partial Thromboplast Time 31.9 Sodium Level 135 Potassium Level 5.4 H Chloride Level 86 L Carbon Dioxide Level 29 Anion Gap 25 H Blood Urea Nitrogen 79 H Creatinine 11.02 H Glucose Level 159 Lactic Acid Level 1.0 0.9 1.0 Calcium Level 8.7 Total Bilirubin 0.0 L Direct Bilirubin 0.00 Indirect Bilirubin 0.0 Aspartate Amino Transf (AST/SGOT) 21 Alanine Aminotransferase (ALT/SGPT) 21 Alkaline Phosphatase 141 H Troponin I 0.023 Total Protein 8.8 H Albumin 4.2 Globulin 4.60 H Albumin/Globulin Ratio 0.91 Bedside Glucose 143 Medications Medications Current Medications Acetaminophen (Tylenol Tab) 325 mg Q4H PRN PO PAIN AND OR ELEVATED TEMP; Start 04/20/17 at 13:00 Carvedilol (Coreg) 12.5 mg BID PO ; Start 04/20/17 at 21:00 Labetalol HCl (Normodyne) 200 mg QHS PO ; Start 04/20/17 at 21:00 Multivit/Ca Carb/ B Cmplx/FA/Prenat (Keke-Andi) 1 tab DAILY PO ; Start 04/21/17 at 09:00 Sevelamer HCl (Renagel) 1,600 mg TID PO ; Start 04/20/17 at 13:00 Diagnostic Test (Pha) (Accu-Chek) 1 ea 02 XX ; Start 04/21/17 at 02:00 Miscellaneous Information 1 ea NOTE XX ; Start 04/20/17 at 17:00 Glucose (Glutose) 15 gm Q15M PRN PO DECREASED GLUCOSE; Start 04/20/17 at 17:00 Glucose (Glutose) 22.5 gm Q15M PRN PO DECREASED GLUCOSE; Start 04/20/17 at 17: 00 Dextrose (D50w Syringe) 25 ml Q15M PRN IV DECREASED GLUCOSE; Start 04/20/17 at 17:00 Dextrose (D50w Syringe) 50 ml Q15M PRN IV DECREASED GLUCOSE; Start 04/20/17 at 17:00 Glucagon (Glucagen) 1 mg Q15M PRN IM DECREASED GLUCOSE; Start 04/20/17 at 17:00 Glucose (Glutose) 15 gm Q15M PRN BUCCAL DECREASED GLUCOSE; Start 04/20/17 at 17 :00 Procedures Procedures PROCEDURE: XR Chest. CLINICAL INDICATION: Sepsis TECHNIQUE: AP Portable chest. COMPARISON: No pertinent prior examinations were submitted for comparison. FINDINGS: The cardiomediastinal silhouette is enlarged. The lung volumes are low. Bibasilar opacities are visualized. No pleural effusion or pneumothorax is seen. The osseous structures are intact. IMPRESSION: Low lung volumes. Bibasilar opacities which represent infiltrate or atelectasis. Cardiomegaly. Physician Yao Date Time Electronically viewed and signed by Physician Yao on 04/20/2017 06: 16 ADAM DUVAL MD Apr 20, 2017 19:57
[2017-04-20] MEDS: INSULIN ASPART [NOVOLOG] 3 ML PEN SC SCH (20:53)
[2017-04-20] MEDS ORDERED: LABETALOL 100 MG TAB PO SCH (21:00)
[2017-04-20] MEDS: LABETALOL 200 MG TAB PO SCH (23:24)
[2017-04-20] MEDS: ACETAMINOPHEN 325 MG TAB PO PRN (23:24)
[2017-04-21] VITALS (21 sets, daily range): BP systolic 114–190; BP diastolic 58–86; PULSE 56–71; RESP 14–20
--- NOTE | 2017-04-21 01:23 | CONS ---
Date/Time of Note Date/Time of Note DATE: 04/20/17 TIME: 10:22 Assessment/Plan Assessment/Plan Problems: (1) Abscess Status: Acute (2) Open wound Status: Acute (3) Diabetic ulcer of both feet associated with type 1 diabetesmellitus Status: Acute (4) Charcot's joint of left foot Status: Acute (5) End stage renal disease on dialysis Status: Acute Additional Assessment/Plan Patient to continue IVAbx. Will follow in house. No surgery recommended on his left ankle at this time. Will monitor. Thank you again for involving me in the care of this patient. If you have any questions regarding this case, please feel free to contact me at pager: or reach me at mobile: [phone]. Consultation Date/Type/Reason Admit Date/Time Apr 20, 2017 at 09:00 Constitutional: No requiring O2 Psychological: nl mood/affect Past Medical History Medical History: diabetes, hypertension, renal disease Past Surgical History Past Surgical Hx: other (avf) Social History Alcohol Use: none Smoking Status: Never smoker Drug Use: none Exam/Review of Systems Vital Signs Vitals Vital Signs Date Time Temp Pulse Resp B/P Pulse Ox O2 Delivery O2 Flow Rate FiO2 04/21/17 00:20 98.4 62 20 160/72 100 04/20/17 20:00 Room Air 04/20/17 06:18 2 Intake and Output 04/20/17 04/20/17 04/21/17 15:00 23:00 07:00 Intake Total 500 ml Output Total 4500 ml Balance -4000 ml Results Result Diagram: 04/20/17 0605 04/20/17 0605 Results 24 hrs Laboratory Tests Test 04/20/17 06:05 04/20/17 07:47 04/20/17 09:59 04/20/17 19:09 White Blood Count 8.1 Red Blood Count 3.14 L Hemoglobin 9.9 L Hematocrit 30.1 L Mean Corpuscular Volume 95.9 Mean Corpuscular Hemoglobin 31.5 Mean Corpuscular Hemoglobin Concent 32.9 Red Cell Distribution Width 15.0 H Platelet Count 211 # Mean Platelet Volume 10.5 H Neutrophils % 62.9 Lymphocytes % 18.2 Monocytes % 17.1 H Eosinophils % 1.4 Basophils % 0.2 Nucleated Red Blood Cells % 0.0 Neutrophils # (Manual) 5.1 Lymphocytes # 1.5 Monocytes # 1.4 H Eosinophils # 0.1 Basophils # 0.0 Nucleated Red Blood Cells # 0.0 Prothrombin Time 13.9 Prothrombin Time Ratio 1.1 INR International Normalized Ratio 1.07 Activated Partial Thromboplast Time 31.9 Sodium Level 135 Potassium Level 5.4 H Chloride Level 86 L Carbon Dioxide Level 29 Anion Gap 25 H Blood Urea Nitrogen 79 H Creatinine 11.02 H Glucose Level 159 Lactic Acid Level 1.0 0.9 1.0 Calcium Level 8.7 Total Bilirubin 0.0 L Direct Bilirubin 0.00 Indirect Bilirubin 0.0 Aspartate Amino Transf (AST/SGOT) 21 Alanine Aminotransferase (ALT/SGPT) 21 Alkaline Phosphatase 141 H Troponin I 0.023 Total Protein 8.8 H Albumin 4.2 Globulin 4.60 H Albumin/Globulin Ratio 0.91 Bedside Glucose 143 Medications Medications Current Medications Acetaminophen (Tylenol Tab) 325 mg Q4H PRN PO PAIN AND OR ELEVATED TEMP Last administered on 04/20/17 23:24; Admin Dose 325 MG; Start 04/20/17 at 13:00 Carvedilol (Coreg) 12.5 mg BID PO Last administered on 04/20/17 23:14; Admin Dose 12.5 MG; Start 04/20/17 at 21:00 Multivit/Ca Carb/ B Cmplx/FA/Prenat (Keke-Andi) 1 tab DAILY PO ; Start 04/21/17 at 09:00 Sevelamer HCl (Renagel) 1,600 mg TID PO Last administered on 04/20/17 23:12; Admin Dose 1,600 MG; Start 04/20/17 at 13:00 Diagnostic Test (Pha) (Accu-Chek) 1 ea 02 XX ; Start 04/21/17 at 02:00 Miscellaneous Information 1 ea NOTE XX ; Start 04/20/17 at 17:00 Glucose (Glutose) 15 gm Q15M PRN PO DECREASED GLUCOSE; Start 04/20/17 at 17:00 Glucose (Glutose) 22.5 gm Q15M PRN PO DECREASED GLUCOSE; Start 04/20/17 at 17: 00 Dextrose (D50w Syringe) 25 ml Q15M PRN IV DECREASED GLUCOSE; Start 04/20/17 at 17:00 Dextrose (D50w Syringe) 50 ml Q15M PRN IV DECREASED GLUCOSE; Start 04/20/17 at 17:00 Glucagon (Glucagen) 1 mg Q15M PRN IM DECREASED GLUCOSE; Start 04/20/17 at 17:00 Glucose (Glutose) 15 gm Q15M PRN BUCCAL DECREASED GLUCOSE; Start 04/20/17 at 17 :00 Labetalol HCl (Normodyne) 200 mg QHS PO Last administered on 04/20/17t 23:24; Admin Dose 200 MG; Start 04/20/17 at 23:00 IRLANDA GIL DPM Apr 21, 2017 01:23
[2017-04-21] MEDS: ACCU-CHEK XX SCH (02:00)
[2017-04-21] MEDS: INSULIN ASPART [NOVOLOG] 3 ML PEN SC SCH ×4 (07:35→21:00)
[2017-04-21] MEDS: SEVELAMER 800 MG TAB PO SCH ×3 (09:33→22:52)
[2017-04-21] MEDS: MULTIVIT/CA CARB/B CMPLX/FA TAB PO SCH (09:33)
[2017-04-21] MEDS: CALCIUM ACETATE 667 MG CAP PO SCH ×3 (09:36→17:24)
[2017-04-21] MEDS ORDERED: VANCOMYCIN IV PER PHARMACY XX SCH (12:30)
[2017-04-21] MEDS ORDERED: CEFEPIME 1GM/50 ML (PMX) 50 ML IVPB SCH (13:30)
[2017-04-21 14:16] LABS: BASOPHILS % 0.2 % (0.0-2.0); EOSINOPHILS # 0.3 10^3/ul (0.0-0.5); EOSINOPHILS % 4.7 % (0.0-7.0); HEMOGLOBIN 10.4 g/dl (14.0-18.0); LYMPHOCYTES # 1.2 10^3/ul (0.8-2.9); LYMPHOCYTES % 21.8 % (15.0-51.0); MEAN CORPUSCULAR HEMOGLOBIN 32.1 pg (29.0-33.0); MEAN CORPUSCULAR HGB CONC 33.5 g/dl (32.0-37.0); MEAN CORPUSCULAR VOLUME 95.7 fl (82.0-101.0); MEAN PLATELET VOLUME 10.2 fl (7.4-10.4); MONOCYTE # 0.8 10^3/ul (0.3-0.9); MONOCYTES % 14.3 % (0.0-11.0); NEUTROPHILS % 58.2 % (39.0-77.0); PLATELET COUNT 235 10^3/UL (140-415); RED BLOOD COUNT 3.24 10^6/ul (4.70-6.10); RED CELL DISTRIBUTION WIDTH 14.6 % (11.5-14.5); WHITE BLOOD COUNT 5.3 10^3/ul (4.8-10.8)
[2017-04-21 14:22] LABS: CREATININE 10.44 mg/dl (0.61-1.24); POTASSIUM 5.9 mmol/L (3.5-5.1)
--- NOTE | 2017-04-21 15:02 | CONS ---
Date/Time of Note Date/Time of Note DATE: 04/21/17 TIME: 15:01 Assessment/Plan Assessment/Plan Additional Assessment/Plan 1. Possible urinary tract infection. 2. End-stage renal disease, hemodialysis dependent. 3. Hyperkalemia. 4. Diabetes mellitus. 5. Hypertension. 6. Right malleolar wound with black eschar. 7. Anemia. S/p HD yesterday Will order HD today Consultation Date/Type/Reason Admit Date/Time Apr 20, 2017 at 09:00 Initial Consult Date 04/20/17 Type of Consultation: Renal Referring Provider: SAVANNAH ANDREWS MD 24 HR Interval Summary Free Text/Dictation S/p HD yesterday Exam/Review of Systems Vital Signs Vitals Vital Signs Date Time Temp Pulse Resp B/P Pulse Ox O2 Delivery O2 Flow Rate FiO2 04/21/17 12:40 97.8 65 15 172/86 100 Room Air 04/20/17 06:18 2 Intake and Output 04/20/17 04/20/17 04/21/17 15:00 23:00 07:00 Intake Total 500 ml Output Total 4500 ml Balance -4000 ml Results Result Diagram: 04/21/17 1340 04/21/17 1344 Results 24 hrs Laboratory Tests Test 04/20/17 19:09 04/21/17 07:42 04/21/17 12:36 04/21/17 13:40 Bedside Glucose 143 107 130 White Blood Count 5.3 # Red Blood Count 3.24 L Hemoglobin 10.4 L Hematocrit 31.0 L Mean Corpuscular Volume 95.7 Mean Corpuscular Hemoglobin 32.1 Mean Corpuscular Hemoglobin Concent 33.5 Red Cell Distribution Width 14.6 H Platelet Count 235 Mean Platelet Volume 10.2 Neutrophils % 58.2 Lymphocytes % 21.8 Monocytes % 14.3 H Eosinophils % 4.7 Basophils % 0.2 Nucleated Red Blood Cells % 0.0 Neutrophils # (Manual) 3.1 Lymphocytes # 1.2 Monocytes # 0.8 Eosinophils # 0.3 Basophils # 0.0 Nucleated Red Blood Cells # 0.0 Hepatitis B Surface Antigen NEGATIVE Hepatitis C Antibody Pending Test 04/21/17 13:44 Sodium Level 139 Potassium Level 5.9 H Chloride Level 93 L Carbon Dioxide Level 27 Anion Gap 25 H Blood Urea Nitrogen 68 H Creatinine 10.44 H Glucose Level 137 Calcium Level 9.0 Medications Medications Current Medications Acetaminophen (Tylenol Tab) 325 mg Q4H PRN PO PAIN AND OR ELEVATED TEMP Last administered on 04/20/17 23:24; Admin Dose 325 MG; Start 04/20/17 at 13:00 Carvedilol (Coreg) 12.5 mg BID PO Last administered on 04/21/17 09:33; Admin Dose 12.5 MG; Start 04/20/17 at 21:00 Multivit/Ca Carb/ B Cmplx/FA/Prenat (Keke-Andi) 1 tab DAILY PO Last administered on 04/21/17 09:33; Admin Dose 1 TAB; Start 04/21/17 at 09:00 Sevelamer HCl (Renagel) 1,600 mg TID PO Last administered on 04/21/17 13:28; Admin Dose 1,600 MG; Start 04/20/17 at 13:00 Diagnostic Test (Pha) (Accu-Chek) 1 ea 02 XX ; Start 04/21/17 at 02:00 Miscellaneous Information 1 ea NOTE XX ; Start 04/20/17 at 17:00 Glucose (Glutose) 15 gm Q15M PRN PO DECREASED GLUCOSE; Start 04/20/17 at 17:00 Glucose (Glutose) 22.5 gm Q15M PRN PO DECREASED GLUCOSE; Start 04/20/17 at 17: 00 Dextrose (D50w Syringe) 25 ml Q15M PRN IV DECREASED GLUCOSE; Start 04/20/17 at 17:00 Dextrose (D50w Syringe) 50 ml Q15M PRN IV DECREASED GLUCOSE; Start 04/20/17 at 17:00 Glucagon (Glucagen) 1 mg Q15M PRN IM DECREASED GLUCOSE; Start 04/20/17 at 17:00 Glucose (Glutose) 15 gm Q15M PRN BUCCAL DECREASED GLUCOSE; Start 04/20/17 at 17 :00 Labetalol HCl 200 mg 200 mg QHS PO Last administered on 04/20/17 23:24; Admin Dose 200 MG; Start 04/20/17 at 23:00 Cefepime HCl (Maxipime 1gm/50 ml (Pmx)) 50 ml @ 100 mls/hr Q24H IVPB Last administered on 04/21/17 14:12; Admin Dose 100 MLS/HR; Start 04/21/17 at 13:30 ADAM DUVAL MD Apr 21, 2017 15:02
--- NOTE | 2017-04-21 16:56 | CONS ---
Date/Time of Note Date/Time of Note DATE: 04/21/17 TIME: 16:51 Consultation Date/Type/Reason Admit Date/Time Apr 20, 2017 at 09:00 Hx of Present Illness Dear Doctors, Mr. Tobias is a 46-year-old gentleman whom presented to [facility] secondary to a right lower extremity diabetic foot infection and lateral malleolus ulcer. The patient is also an end-stage renal disease patient whom receives dialysis Tuesday, Tuesday, Tuesday, and Tuesday schedule. He currently has a left upper extremity AV fistula that is being followed by an outside vascular surgeon. At the moment patient denies shortness of breath, chest pain, nausea, vomiting, fever, or chills. Patient has had a history of left lower extremity Charcot's foot as well, in which he developed a diabetic foot infection and skin necrosis over the dorsal aspect of his forefoot in which he underwent a skin graft placement. REVIEW OF SYSTEMS: Fourteen point review performed negative except as mentioned in HPI. PAST MEDICAL HISTORY: 1. Diabetes. 2. Coronary artery disease. 3. Hypertension. 4. Hyperlipidemia. 5. Morbidly obese. 6. End-stage renal disease. 7. Anemia of chronic disease. PAST SURGICAL HISTORY: 1. Left foot skin graft placement. 2. Left upper extremity fistula creation. 3. Incision and drainage of a scapular abscess. 4. Previous chest wall catheter placement. FAMILY HISTORY: Positive for diabetes and coronary artery disease. SOCIAL HISTORY: Denies tobacco, alcohol, or illicit drug use. PHYSICAL EXAMINATION: GENERAL APPEARANCE: Alert, oriented x3. No apparent distress. HEENT: Normocephalic, atraumatic. EOMI. Legally blind. Mucosa moist. NECK: Supple. No carotid bruit. LUNGS: Clear to auscultation bilaterally. No crackles. CARDIOVASCULAR: S1, S2 present. No murmurs. ABDOMEN: Soft, nontender, nondistended. Bowel sounds positive. Truncal obesity. EXTREMITIES: Right lower extremity, palpable femoral pulse. Palpable pedal pulse. Motor sensory intact. Capillary refill 2-3 seconds. There is a lateral malleolar ulcer with eschar and surrounding erythema -Left lower extremity, palpable femoral pulse. Palpable pedal pulse. Motor sensory intact. Capillary refill 2-3 seconds. There is a previous skin graft that is well healed on the dorsal aspect of the forefoot. Left upper extremity has palpable brachial pulse. Motor sensory intact. Capillary refill 2 seconds. There is a fistula with bruit and thrill present. Previous surgical scar that is well healed. 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 Right lower extremity atherosclerosis with a right malleolar ulcer: Recently the patient had developed a diabetic foot infection in addition to developing an ulcer on the lateral malleolar that likely has contributed to his diabetes more so than the atherosclerotic disease. At the moment patient does have palpable pedal pulse. Therefore there is not much further that we need to do from a vascular surgery intervention. We will plan to obtain noninvasive vascular studies to evaluate for any flow-limiting stenosis in his lower extremities. 2. Would recommend continue with antibiotics for now 3. Will follow with our podiatry colleagues for the patient's progress. 4. Optimize vascular status (blood pressure medications, diet, nutrition, exercise, sugar control, antiplatelets). 5. Discussed findings, plan and management with the patient a certified manager ship and he understands. Thank you for allowing us to partake in the care of your patient. Please call with any questions. Constitutional: No requiring O2 Psychological: nl mood/affect Past Medical History Medical History: diabetes, hypertension, renal disease Past Surgical History Past Surgical Hx: other (avf) Social History Alcohol Use: none Smoking Status: Never smoker Drug Use: none Exam/Review of Systems Vital Signs Vitals Vital Signs Date Time Temp Pulse Resp B/P Pulse Ox O2 Delivery O2 Flow Rate FiO2 04/21/17 16:00 65 04/21/17 12:40 97.8 15 172/86 100 Room Air 04/20/17 06:18 2 Intake and Output 04/20/17 04/20/17 04/21/17 15:00 23:00 07:00 Intake Total 500 ml Output Total 4500 ml Balance -4000 ml Results Result Diagram: 04/21/17 1340 04/21/17 1344 Results 24 hrs Laboratory Tests Test 04/20/17 19:09 04/21/17 07:42 04/21/17 12:36 04/21/17 13:40 Bedside Glucose 143 107 130 White Blood Count 5.3 # Red Blood Count 3.24 L Hemoglobin 10.4 L Hematocrit 31.0 L Mean Corpuscular Volume 95.7 Mean Corpuscular Hemoglobin 32.1 Mean Corpuscular Hemoglobin Concent 33.5 Red Cell Distribution Width 14.6 H Platelet Count 235 Mean Platelet Volume 10.2 Neutrophils % 58.2 Lymphocytes % 21.8 Monocytes % 14.3 H Eosinophils % 4.7 Basophils % 0.2 Nucleated Red Blood Cells % 0.0 Neutrophils # (Manual) 3.1 Lymphocytes # 1.2 Monocytes # 0.8 Eosinophils # 0.3 Basophils # 0.0 Nucleated Red Blood Cells # 0.0 Hepatitis B Surface Antigen NEGATIVE Hepatitis C Antibody NEGATIVE Test 04/21/17 13:44 Sodium Level 139 Potassium Level 5.9 H Chloride Level 93 L Carbon Dioxide Level 27 Anion Gap 25 H Blood Urea Nitrogen 68 H Creatinine 10.44 H Glucose Level 137 Calcium Level 9.0 Medications Medications Current Medications Acetaminophen (Tylenol Tab) 325 mg Q4H PRN PO PAIN AND OR ELEVATED TEMP Last administered on 04/20/17 23:24; Admin Dose 325 MG; Start 04/20/17 at 13:00 Carvedilol (Coreg) 12.5 mg BID PO Last administered on 04/21/17 09:33; Admin Dose 12.5 MG; Start 04/20/17 at 21:00 Multivit/Ca Carb/ B Cmplx/FA/Prenat (Keke-Andi) 1 tab DAILY PO Last administered on 04/21/17 09:33; Admin Dose 1 TAB; Start 04/21/17 at 09:00 Sevelamer HCl (Renagel) 1,600 mg TID PO Last administered on 04/21/17 13:28; Admin Dose 1,600 MG; Start 04/20/17 at 13:00 Diagnostic Test (Pha) (Accu-Chek) 1 ea 02 XX ; Start 04/21/17 at 02:00 Miscellaneous Information 1 ea NOTE XX ; Start 04/20/17 at 17:00 Glucose (Glutose) 15 gm Q15M PRN PO DECREASED GLUCOSE; Start 04/20/17 at 17:00 Glucose (Glutose) 22.5 gm Q15M PRN PO DECREASED GLUCOSE; Start 04/20/17 at 17: 00 Dextrose (D50w Syringe) 25 ml Q15M PRN IV DECREASED GLUCOSE; Start 04/20/17 at 17:00 Dextrose (D50w Syringe) 50 ml Q15M PRN IV DECREASED GLUCOSE; Start 04/20/17 at 17:00 Glucagon (Glucagen) 1 mg Q15M PRN IM DECREASED GLUCOSE; Start 04/20/17 at 17:00 Glucose (Glutose) 15 gm Q15M PRN BUCCAL DECREASED GLUCOSE; Start 04/20/17 at 17 :00 Labetalol HCl 200 mg 200 mg QHS PO Last administered on 04/20/17 23:24; Admin Dose 200 MG; Start 04/20/17 at 23:00 Cefepime HCl (Maxipime 1gm/50 ml (Pmx)) 50 ml @ 100 mls/hr Q24H IVPB Last administered on 04/21/17 14:12; Admin Dose 100 MLS/HR; Start 04/21/17 at 13:30 Miscellaneous Information (*Rx Drug Level Order Reminder*) VANCO RANDOM W/ AM LABS... ONCE ONCE XX ; Start 04/22/17 at 05:00; Stop 04/22/17 at 05:01 FREDDIE HAGEN MD Apr 21, 2017 16:56
[2017-04-21] MEDS ORDERED: REPA1TAB14 PO (18:05)
[2017-04-21] MEDS ORDERED: OMEP20CA16 PO (18:05)
[2017-04-21] MEDS ORDERED: KAYPO PO (18:05)
[2017-04-21] MEDS ORDERED: GABA100C14 PO (18:05)
[2017-04-21] MEDS ORDERED: CLON0.2T5 PO (18:05)
[2017-04-21 18:25] LABS: ADD UMIC YES; UR ASCORBIC ACID NEGATIVE (NEGATIVE); UR BACTERIA FEW /HPF (NONE SEEN); UR BILIRUBIN (Dip) NEGATIVE (NEGATIVE); UR BLOOD (Dip) 2+ mg/dL (NEGATIVE); UR CLARITY CLOUDY (CLEAR); UR COLOR YELLOW (YELLOW); UR GLUCOSE (Dip) 2+ mg/dL (NEGATIVE); UR KETONES (Dip) NEGATIVE (NEGATIVE); UR LEUKOCYTE ESTERASE (Dip) 3+ Leu/ul (NEGATIVE); UR NITRITE (Dip) NEGATIVE (NEGATIVE); UR RBC 140 /HPF (0-5); UR SPECIFIC GRAVITY (Dip) 1.012 (1.003-1.030); UR TOTAL PROTEIN (Dip) 2+ mg/dl (NEGATIVE); UR UROBILINOGEN (Dip) NEGATIVE (NEGATIVE)
[2017-04-21] MEDS: LABETALOL 200 MG TAB PO SCH (22:52)
[2017-04-22] VITALS (12 sets, daily range): BP systolic 127–189; BP diastolic 57–81; PULSE 63–72; RESP 16–20
[2017-04-22] MEDS: ACCU-CHEK XX SCH (02:00)
[2017-04-22] MEDS: ACETAMINOPHEN 325 MG TAB PO PRN (02:23)
[2017-04-22] MEDS: DIPHENHYDRAMINE 25 MG CAP PO PRN (04:01)
[2017-04-22 06:58] LABS: CALCIUM 8.7 mg/dl (8.4-10.2); CREATININE 8.91 mg/dl (0.61-1.24); POTASSIUM 4.2 mmol/L (3.5-5.1)
[2017-04-22] MEDS: INSULIN ASPART [NOVOLOG] 3 ML PEN SC SCH ×5 (08:00→20:38)
[2017-04-22] MEDS: MULTIVIT/CA CARB/B CMPLX/FA TAB PO SCH (08:52)
[2017-04-22] MEDS: SEVELAMER 800 MG TAB PO SCH ×3 (08:52→20:38)
[2017-04-22] MEDS: CALCIUM ACETATE 667 MG CAP PO SCH ×3 (08:52→18:13)
--- NOTE | 2017-04-22 10:37 | CONS ---
Date/Time of Note Date/Time of Note DATE: 04/22/17 TIME: 10:14 Assessment/Plan Assessment/Plan Chief Complaint/Hosp Course assessment/impression - penile pain, dysuria, fever and chills. suspected UTI, possibly STDs ( urethritis), if non-ID causes, diabetic neuropathy is considered - diabetes - CAD - ESRD on HD via AVF in LUE - s/p skin grafts of LLE - PVD - R lateral malleolar ulcer recommendations - I instructed Pt to try give us another sample of urine. ordered urine culture , GC and chlamydia NAAT - I recommend a trial of doxycycline, change cefepime to ceftriaxone; continue empiric IV vancomycin - if no improvement, I recommend urology consult management d/w Pt and his RN Problems: Consultation Date/Type/Reason Admit Date/Time Apr 20, 2017 at 09:00 Date of Consultation: Apr 22, 2017 Type of Consultation: ID Referring Provider: CHARLINE LOMELI Hx of Present Illness This is a 46 yo male with DM, PVD, and ESRD who presented at ER c/o fever, chills and throbbing pain of the urethra. Pt says that the pain would come and ago every 2-3 min. It gets worse as he urinates. He urinates a small amount of urine at baseline. He denies hematuria, penile discharge. Pt denies pain in the bladder or flank. Pt denies respiratory or GI symptoms. Pt has non- healing ulcer of R lateral malleolus. CT abd/pel showed BPH. Pt said that he submitted a small amount of urine for testing; however, both orders of urine culture were cancelled on [facility]. Pt has been receiving IV vancomycin and cefepime without relief. CHRIS Lomeli requested ID consultation on this Pt. Constitutional: chills, febrile, No requiring O2 Eyes: no complaints ENT: no complaints Respiratory: no complaints Cardiovascular: no complaints Gastrointestinal: no complaints Genitourinary: dysuria, other (pain in the penile urethra), No bleeding, No discharge, No flank pain, No hematuria Musculoskeletal: no complaints Skin: no complaints Neurologic: no complaints Psychological: nl mood/affect Past Medical History Medical History: diabetes, hypertension, renal disease Past Surgical History Past Surgical Hx: other (AVF in LUE, ) Social History Alcohol Use: none Smoking Status: Never smoker Drug Use: none Exam/Review of Systems Vital Signs Vitals Vital Signs Date Time Temp Pulse Resp B/P Pulse Ox O2 Delivery O2 Flow Rate FiO2 04/22/17 08:27 65 04/22/17 07:43 98.4 16 140/66 96 04/21/17 19:10 Room Air 04/20/17 06:18 2 Intake and Output 04/21/17 04/21/17 04/22/17 15:00 23:00 07:00 Intake Total 300 ml 300 ml Output Total 2500 ml Balance -2200 ml 300 ml Exam Constitutional: alert Psych: nl mood/affect, no complaints Head: atraumatic, normocephalic Eyes: nl conjunctiva, nl lids ENMT: nl external ears & nose, nl nasal mucosa & septum Respiratory: clear to auscultation, normal air movement Cardiovascular: nl pulses, regular rate and rhythm Gastrointestinal: non-tender, soft Genitourinary - Male: nl penis, nl scrotum, No CVA tenderness, No discharge Musculoskeletal: nl extremities to inspection Extremities: No edema Neurological: CURRICULUM DESIGNER II-XII intact, nl mental status, nl speech Skin: rash or lesions (dry ulcer of R lateral malleolus, non draining and non- TTP) Results Result Diagram: 04/21/17 1340 04/22/17 0512 Results 24 hrs Laboratory Tests Test 04/21/17 12:36 04/21/17 13:40 04/21/17 13:44 04/21/17 14:10 Bedside Glucose 130 White Blood Count 5.3 # Red Blood Count 3.24 L Hemoglobin 10.4 L Hematocrit 31.0 L Mean Corpuscular Volume 95.7 Mean Corpuscular Hemoglobin 32.1 Mean Corpuscular Hemoglobin Concent 33.5 Red Cell Distribution Width 14.6 H Platelet Count 235 Mean Platelet Volume 10.2 Neutrophils % 58.2 Lymphocytes % 21.8 Monocytes % 14.3 H Eosinophils % 4.7 Basophils % 0.2 Nucleated Red Blood Cells % 0.0 Neutrophils # (Manual) 3.1 Lymphocytes # 1.2 Monocytes # 0.8 Eosinophils # 0.3 Basophils # 0.0 Nucleated Red Blood Cells # 0.0 Hepatitis B Surface Antigen NEGATIVE Hepatitis C Antibody NEGATIVE Sodium Level 139 Potassium Level 5.9 H Chloride Level 93 L Carbon Dioxide Level 27 Anion Gap 25 H Blood Urea Nitrogen 68 H Creatinine 10.44 H Glucose Level 137 Calcium Level 9.0 Urine Color YELLOW Urine Clarity CLOUDY A Urine pH 9.0 Urine Specific [place] 1.012 Urine Ketones NEGATIVE Urine Nitrite NEGATIVE Urine Bilirubin NEGATIVE Urine Urobilinogen NEGATIVE Urine Leukocyte Esterase 3+ H Urine Microscopic RBC 140 H Urine Microscopic WBC 92 H Urine Bacteria FEW A Urine Hemoglobin 2+ H Urine Glucose 2+ H Urine Total Protein 2+ H Test 04/21/17 17:07 04/21/17 21:10 04/22/17 05:12 04/22/17 08:23 Bedside Glucose 164 132 128 Sodium Level 140 Potassium Level 4.2 Chloride Level 93 L Carbon Dioxide Level 32 H Anion Gap 19 H Blood Urea Nitrogen 48 #H Creatinine 8.91 H Glucose Level 160 Calcium Level 8.7 Random Vancomycin Level 8.1 Medications Medications Current Medications Acetaminophen (Tylenol Tab) 325 mg Q4H PRN PO PAIN AND OR ELEVATED TEMP Last administered on 04/22/17 02:23; Admin Dose 325 MG; Start 04/20/17 at 13:00 Carvedilol (Coreg) 12.5 mg BID PO Last administered on 04/22/17 08:52; Admin Dose 12.5 MG; Start 04/20/17 at 21:00 Multivit/Ca Carb/ B Cmplx/FA/Prenat (Keke-Andi) 1 tab DAILY PO Last administered on 04/22/17 08:52; Admin Dose 1 TAB; Start 04/21/17 at 09:00 Sevelamer HCl (Renagel) 1,600 mg TID PO Last administered on 04/22/17 08:52; Admin Dose 1,600 MG; Start 04/20/17 at 13:00 Diagnostic Test (Pha) (Accu-Chek) 1 ea 02 XX ; Start 04/21/17 at 02:00 Miscellaneous Information 1 ea NOTE XX ; Start 04/20/17 at 17:00 Glucose (Glutose) 15 gm Q15M PRN PO DECREASED GLUCOSE; Start 04/20/17 at 17:00 Glucose (Glutose) 22.5 gm Q15M PRN PO DECREASED GLUCOSE; Start 04/20/17 at 17: 00 Dextrose (D50w Syringe) 25 ml Q15M PRN IV DECREASED GLUCOSE; Start 04/20/17 at 17:00 Dextrose (D50w Syringe) 50 ml Q15M PRN IV DECREASED GLUCOSE; Start 04/20/17 at 17:00 Glucagon (Glucagen) 1 mg Q15M PRN IM DECREASED GLUCOSE; Start 04/20/17 at 17:00 Glucose (Glutose) 15 gm Q15M PRN BUCCAL DECREASED GLUCOSE; Start 04/20/17 at 17 :00 Labetalol HCl 200 mg 200 mg QHS PO Last administered on 04/21/17 22:52; Admin Dose 200 MG; Start 04/20/17 at 23:00 Cefepime HCl (Maxipime 1gm/50 ml (Pmx)) 50 ml @ 100 mls/hr Q24H IVPB Last administered on 04/21/17 14:12; Admin Dose 100 MLS/HR; Start 04/21/17 at 13:30 Diphenhydramine HCl (Benadryl) 25 mg Q6H PRN PO ITCHING Last administered on 04:01; Admin Dose 25 MG; Start 04/22/17 at 04:00 NATTY DEE M.D. Apr 22, 2017 10:25
--- NOTE | 2017-04-22 10:45 | CONS ---
Date/Time of Note Date/Time of Note DATE: 04/22/17 TIME: 10:45 Assessment/Plan Assessment/Plan Chief Complaint/Hosp Course assessment/impression - penile pain, dysuria, fever and chills. suspected UTI, possibly STDs ( urethritis), if non-ID causes, diabetic neuropathy is considered - diabetes - CAD - ESRD on HD via AVF in LUE - s/p skin grafts of LLE - PVD - R lateral malleolar ulcer REVISED recommendations - I instructed Pt to try give us another sample of urine. ordered urine culture , GC and chlamydia NAAT - I recommend a trial of doxycycline, change cefepime to meropenem; continue empiric IV vancomycin - if no improvement, I recommend urology consult management d/w Pt and his RN Problems: Consultation Date/Type/Reason Admit Date/Time Apr 20, 2017 at 09:00 Date of Consultation: Apr 22, 2017 Hx of Present Illness assessment/impression - penile pain, dysuria, fever and chills. suspected UTI, possibly STDs ( urethritis), if non-ID causes, diabetic neuropathy is considered - diabetes - CAD - ESRD on HD via AVF in LUE - s/p skin grafts of LLE - PVD - R lateral malleolar ulcer recommendations - I instructed Pt to try give us another sample of urine. ordered urine culture , GC and chlamydia NAAT - I recommend a trial of doxycycline, change cefepime to ceftriaxone; continue empiric IV vancomycin - if no improvement, I recommend urology consult management d/w Pt and his RN Constitutional: chills, febrile, No requiring O2 Eyes: no complaints ENT: no complaints Respiratory: no complaints Cardiovascular: no complaints Gastrointestinal: no complaints Genitourinary: dysuria, other (pain in the penile urethra), No bleeding, No discharge, No flank pain, No hematuria Musculoskeletal: no complaints Skin: no complaints Neurologic: no complaints Psychological: nl mood/affect, no complaints Past Medical History Medical History: diabetes, hypertension, renal disease Past Surgical History Past Surgical Hx: other (AVF in LUE, ) Social History Alcohol Use: none Smoking Status: Never smoker Drug Use: none Exam/Review of Systems Vital Signs Vitals Vital Signs Date Time Temp Pulse Resp B/P Pulse Ox O2 Delivery O2 Flow Rate FiO2 04/22/17 08:27 65 04/22/17 07:43 98.4 16 140/66 96 8/31/17 19:10 Room Air 04/20/17 06:18 2 Intake and Output 04/21/17 04/21/17 04/22/17 15:00 23:00 07:00 Intake Total 300 ml 300 ml Output Total 2500 ml Balance -2200 ml 300 ml Results Result Diagram: 04/21/17 1340 04/22/17 0512 Results 24 hrs Laboratory Tests Test 04/21/17 12:36 04/21/17 13:40 04/21/17 13:44 04/21/17 14:10 Bedside Glucose 130 White Blood Count 5.3 # Red Blood Count 3.24 L Hemoglobin 10.4 L Hematocrit 31.0 L Mean Corpuscular Volume 95.7 Mean Corpuscular Hemoglobin 32.1 Mean Corpuscular Hemoglobin Concent 33.5 Red Cell Distribution Width 14.6 H Platelet Count 235 Mean Platelet Volume 10.2 Neutrophils % 58.2 Lymphocytes % 21.8 Monocytes % 14.3 H Eosinophils % 4.7 Basophils % 0.2 Nucleated Red Blood Cells % 0.0 Neutrophils # (Manual) 3.1 Lymphocytes # 1.2 Monocytes # 0.8 Eosinophils # 0.3 Basophils # 0.0 Nucleated Red Blood Cells # 0.0 Hepatitis B Surface Antigen NEGATIVE Hepatitis C Antibody NEGATIVE Sodium Level 139 Potassium Level 5.9 H Chloride Level 93 L Carbon Dioxide Level 27 Anion Gap 25 H Blood Urea Nitrogen 68 H Creatinine 10.44 H Glucose Level 137 Calcium Level 9.0 Urine Color YELLOW Urine Clarity CLOUDY A Urine pH 9.0 Urine Specific [place] 1.012 Urine Ketones NEGATIVE Urine Nitrite NEGATIVE Urine Bilirubin NEGATIVE Urine Urobilinogen NEGATIVE Urine Leukocyte Esterase 3+ H Urine Microscopic RBC 140 H Urine Microscopic WBC 92 H Urine Bacteria FEW A Urine Hemoglobin 2+ H Urine Glucose 2+ H Urine Total Protein 2+ H Test 04/21/17 17:07 04/21/17 21:10 04/22/17 05:12 04/22/17 08:23 Bedside Glucose 164 132 128 Sodium Level 140 Potassium Level 4.2 Chloride Level 93 L Carbon Dioxide Level 32 H Anion Gap 19 H Blood Urea Nitrogen 48 #H Creatinine 8.91 H Glucose Level 160 Calcium Level 8.7 Random Vancomycin Level 8.1 Medications Medications Current Medications Acetaminophen (Tylenol Tab) 325 mg Q4H PRN PO PAIN AND OR ELEVATED TEMP Last administered on 04/22/17 02:23; Admin Dose 325 MG; Start 04/20/17 at 13:00 Carvedilol (Coreg) 12.5 mg BID PO Last administered on 04/22/17 08:52; Admin Dose 12.5 MG; Start 04/20/17 at 21:00 Multivit/Ca Carb/ B Cmplx/FA/Prenat (Keke-Andi) 1 tab DAILY PO Last administered on 04/22/17 08:52; Admin Dose 1 TAB; Start 04/21/17 at 09:00 Sevelamer HCl (Renagel) 1,600 mg TID PO Last administered on 04/22/17 08:52; Admin Dose 1,600 MG; Start 04/20/17 at 13:00 Diagnostic Test (Pha) (Accu-Chek) 1 ea 02 XX ; Start 04/21/17 at 02:00 Miscellaneous Information 1 ea NOTE XX ; Start 04/20/17 at 17:00 Glucose (Glutose) 15 gm Q15M PRN PO DECREASED GLUCOSE; Start 04/20/17 at 17:00 Glucose (Glutose) 22.5 gm Q15M PRN PO DECREASED GLUCOSE; Start 04/20/17 at 17: 00 Dextrose (D50w Syringe) 25 ml Q15M PRN IV DECREASED GLUCOSE; Start 04/20/17 at 17:00 Dextrose (D50w Syringe) 50 ml Q15M PRN IV DECREASED GLUCOSE; Start 04/20/17 at 17:00 Glucagon (Glucagen) 1 mg Q15M PRN IM DECREASED GLUCOSE; Start 04/20/17 at 17:00 Glucose (Glutose) 15 gm Q15M PRN BUCCAL DECREASED GLUCOSE; Start 04/20/17 at 17 :00 Labetalol HCl (Normodyne) 200 mg QHS PO Last administered on 04/21/17 22:52; Admin Dose 200 MG; Start 04/20/17 at 23:00 Diphenhydramine HCl 25 mg 25 mg Q6H PRN PO ITCHING Last administered on 04:01; Admin Dose 25 MG; Start 04/22/17 at 04:00 Ceftriaxone Sodium (Rocephin) 50 ml @ 100 mls/hr Q24H IVPB ; Start 04/22/17 at 11:00; Status UNV Doxycycline Hyclate (Vibramycin) 100 mg BID PO ; Start 04/22/17 at 11:00; Status UNV NATTY DEE M.D. Apr 22, 2017 10:45
[2017-04-22] MEDS ORDERED: CEFTRIAXONE 1 GM/50 ML (PMX) 50 ML IVPB SCH (11:00)
[2017-04-22] MEDS ORDERED: VANCOMYCIN 1.5 GM in SOD CHLORIDE 0.9% 250 ML IVPB SCH (11:30)
[2017-04-22] MEDS: MEROPENEM 500MG/50 ML (PMX) 50 ML IVPB SCH (12:55)
[2017-04-22] MEDS: DOXYCYCLINE 100 MG TAB PO SCH ×2 (12:58→20:38)
--- NOTE | 2017-04-22 15:25 | CONS ---
Date/Time of Note Date/Time of Note DATE: 04/22/17 TIME: 15:25 Assessment/Plan Assessment/Plan Additional Assessment/Plan 1. Possible urinary tract infection. 2. End-stage renal disease, hemodialysis dependent. 3. Hyperkalemia. 4. Diabetes mellitus. 5. Hypertension. 6. Right malleolar wound with black eschar. 7. Anemia. S/p HD yesterday HD ordered for tomorrow Cont to monitor electrolytes, volume status. Consultation Date/Type/Reason Admit Date/Time Apr 21, 2017 at 21:38 Initial Consult Date 04/20/17 Type of Consultation: Renal Referring Provider: CHARLINE ALMENDAREZ 24 HR Interval Summary Free Text/Dictation No new complaints S/p HD yesterday Constitutional: No requiring O2 Exam/Review of Systems Vital Signs Vitals Vital Signs Date Time Temp Pulse Resp B/P Pulse Ox O2 Delivery O2 Flow Rate FiO2 04/22/17 12:16 63 04/22/17 12:05 98.4 18 168/78 97 04/21/17 19:10 Room Air 04/20/17 06:18 2 Intake and Output 04/21/17 04/21/17 04/22/17 15:00 23:00 07:00 Intake Total 300 ml 300 ml Output Total 2500 ml Balance -2200 ml 300 ml Exam Constitutional: No distress ENMT: mucosa pink and moist Neck: No jvd Respiratory: No diminished breath sounds, No labored breathing Cardiovascular: edema, regular rate and rhythm Gastrointestinal: soft Neurological: No lethargic Skin: No diaphoresis Results Result Diagram: 04/21/17 1340 04/22/17 0512 Results 24 hrs Laboratory Tests Test 04/21/17 17:07 04/21/17 21:10 04/22/17 05:12 04/22/17 08:23 Bedside Glucose 164 132 128 Sodium Level 140 Potassium Level 4.2 Chloride Level 93 L Carbon Dioxide Level 32 H Anion Gap 19 H Blood Urea Nitrogen 48 #H Creatinine 8.91 H Glucose Level 160 Calcium Level 8.7 Random Vancomycin Level 8.1 Test 04/22/17 11:40 Bedside Glucose 164 Medications Medications Current Medications Acetaminophen (Tylenol Tab) 325 mg Q4H PRN PO PAIN AND OR ELEVATED TEMP Last administered on 04/22/17t 02:23; Admin Dose 325 MG; Start 04/20/17 at 13:00 Carvedilol (Coreg) 12.5 mg BID PO Last administered on 04/22/17 08:52; Admin Dose 12.5 MG; Start 04/20/17 at 21:00 Multivit/Ca Carb/ B Cmplx/FA/Prenat (Keke-Andi) 1 tab DAILY PO Last administered on 04/22/17 08:52; Admin Dose 1 TAB; Start 04/21/17 at 09:00 Sevelamer HCl (Renagel) 1,600 mg TID PO Last administered on 04/22/17 11:53; Admin Dose 1,600 MG; Start 04/20/17 at 13:00 Diagnostic Test (Pha) (Accu-Chek) 1 ea 02 XX ; Start 04/21/17 at 02:00 Miscellaneous Information 1 ea NOTE XX ; Start 04/20/17 at 17:00 Glucose (Glutose) 15 gm Q15M PRN PO DECREASED GLUCOSE; Start 04/20/17 at 17:00 Glucose (Glutose) 22.5 gm Q15M PRN PO DECREASED GLUCOSE; Start 04/20/17 at 17: 00 Dextrose (D50w Syringe) 25 ml Q15M PRN IV DECREASED GLUCOSE; Start 04/20/17 at 17:00 Dextrose (D50w Syringe) 50 ml Q15M PRN IV DECREASED GLUCOSE; Start 04/20/17 at 17:00 Glucagon (Glucagen) 1 mg Q15M PRN IM DECREASED GLUCOSE; Start 04/20/17 at 17:00 Glucose (Glutose) 15 gm Q15M PRN BUCCAL DECREASED GLUCOSE; Start 04/20/17 at 17 :00 Labetalol HCl (Normodyne) 200 mg QHS PO Last administered on 04/21/17 22:52; Admin Dose 200 MG; Start 04/20/17 at 23:00 Diphenhydramine HCl (Benadryl) 25 mg Q6H PRN PO ITCHING Last administered on 04:01; Admin Dose 25 MG; Start 04/22/17 at 04:00 Doxycycline Hyclate 100 mg 100 mg BID PO Last administered on 04/22/17 12:58; Admin Dose 100 MG; Start 04/22/17 at 12:00 Meropenem/Sodium Chloride 50 ml @ 100 mls/hr Q24H IVPB Last administered on 12:55; Admin Dose 100 MLS/HR; Start 04/22/17 at 12:00 Vancomycin HCl/ Sodium Chloride (Vancocin/NS) 250 ml @ 83.333 mls/ hr ONCE IVPB Last administered on 04/22/17 15:10; Admin Dose 83.333 MLS/HR; Start at 11:30; Stop 04/22/17 at 18:00 ADAM DUAVL MD Apr 22, 2017 15:25
--- NOTE | 2017-04-22 19:38 | PN ---
Date/Time of Note Date/Time of Note DATE: 04/22/17 TIME: 19:37 Assessment/Plan Lines/Catheters IV Catheter Type (from [facility]): Saline Lock Urinary Cath still in place: No Assessment/Plan Assessment/Plan 1. Possible urinary tract infection. Will obtain urine culture. Continue the patient on broad-spectrum antibiotics. Dr. Tirado will be following patient from infectious disease consultation. 2. End-stage renal disease, hemodialysis dependent. Dr. De Santiago will be following in Nephrology consultation. Patient is undergoing hemodialysis. 3. Hyperkalemia. Continue hemodialysis. 4. Diabetes mellitus. Will continue Lantus and NovoLog. 5. Hypertension. 6. Right malleolar wound with black eschar. Will ask Dr. Jay to see patient in vascular surgery consultation and Dr. Douglass to see patient in podiatry consultation. 7. Anemia. We will continue to monitor hemoglobin and hematocrit. No indication for transfusion at this time. 8. Continue heparin for deep venous thrombosis prophylaxis and Pepcid for peptic ulcer disease prophylaxis. 9. Further recommendations based on clinical course. Plan of care discussed with Dr. Casiano. Subjective 24 Hr Interval Summary Respiratory: no complaints Cardiovascular: no complaints Gastrointestinal: no complaints Genitourinary: no complaints Musculoskeletal: bone/joint pain Neurologic: no complaints Exam/Review of Systems Vital Signs Vitals Vital Signs Date Time Temp Pulse Resp B/P Pulse Ox O2 Delivery O2 Flow Rate FiO2 04/22/17 16:36 64 04/22/17 15:51 98.7 18 188/57 96 04/21/17 19:10 Room Air 04/20/17 06:18 2 Intake and Output 04/21/17 04/21/17 04/22/17 15:00 23:00 07:00 Intake Total 300 ml 300 ml Output Total 2500 ml Balance -2200 ml 300 ml Results Result Diagram: 04/21/17 1340 04/22/17 0512 Results 24 hrs Laboratory Tests Test 04/21/17 21:10 04/22/17 05:12 04/22/17 08:23 04/22/17 11:40 Bedside Glucose 132 128 164 Sodium Level 140 Potassium Level 4.2 Chloride Level 93 L Carbon Dioxide Level 32 H Anion Gap 19 H Blood Urea Nitrogen 48 #H Creatinine 8.91 H Glucose Level 160 Calcium Level 8.7 Random Vancomycin Level 8.1 Test 04/22/17 18:08 Bedside Glucose 156 Medications Medications Current Medications Acetaminophen (Tylenol Tab) 325 mg Q4H PRN PO PAIN AND OR ELEVATED TEMP Last administered on 04/22/17 02:23; Admin Dose 325 MG; Start 04/20/17 at 13:00 Carvedilol (Coreg) 12.5 mg BID PO Last administered on 04/22/17 08:52; Admin Dose 12.5 MG; Start 04/20/17 at 21:00 Multivit/Ca Carb/ B Cmplx/FA/Prenat (Keke-Andi) 1 tab DAILY PO Last administered on 04/22/17 08:52; Admin Dose 1 TAB; Start 04/21/17 at 09:00 Sevelamer HCl (Renagel) 1,600 mg TID PO Last administered on 04/22/17 11:53; Admin Dose 1,600 MG; Start 04/20/17 at 13:00 Diagnostic Test (Pha) (Accu-Chek) 1 ea 02 XX ; Start 04/21/17 at 02:00 Miscellaneous Information 1 ea NOTE XX ; Start 04/20/17 at 17:00 Glucose (Glutose) 15 gm Q15M PRN PO DECREASED GLUCOSE; Start 04/20/17 at 17:00 Glucose (Glutose) 22.5 gm Q15M PRN PO DECREASED GLUCOSE; Start 04/20/17 at 17: 00 Dextrose (D50w Syringe) 25 ml Q15M PRN IV DECREASED GLUCOSE; Start 04/20/17 at 17:00 Dextrose (D50w Syringe) 50 ml Q15M PRN IV DECREASED GLUCOSE; Start 04/20/17 at 17:00 Glucagon (Glucagen) 1 mg Q15M PRN IM DECREASED GLUCOSE; Start 04/20/17 at 17:00 Glucose (Glutose) 15 gm Q15M PRN BUCCAL DECREASED GLUCOSE; Start 04/20/17 at 17 :00 Labetalol HCl (Normodyne) 200 mg QHS PO Last administered on 04/21/17 22:52; Admin Dose 200 MG; Start 04/20/17 at 23:00 Diphenhydramine HCl (Benadryl) 25 mg Q6H PRN PO ITCHING Last administered on 04:01; Admin Dose 25 MG; Start 04/22/17 at 04:00 Doxycycline Hyclate 100 mg 100 mg BID PO Last administered on 04/22/17 12:58; Admin Dose 100 MG; Start 04/22/17 at 12:00 Meropenem/Sodium Chloride (Merrem 500mg/50 ml(Pmx)) 50 ml @ 100 mls/hr Q24H IVPB Last administered on 04/22/17 12:55; Admin Dose 100 MLS/HR; Start 04/22/17 at 12:00 Clonidine (Catapres) 0.1 mg Q4H PRN PO SBP >170 Last administered on 04/22/17 18:13; Admin Dose 0.1 MG; Start 04/22/17 at 17:00 Hydralazine HCl (Apresoline) 25 mg TID PO ; Start 04/22/17 at 21:00 ALEXI BRANDON Apr 22, 2017 19:38
--- NOTE | 2017-04-22 19:41 | PN ---
Date/Time of Note Date/Time of Note DATE: 04/22/17 TIME: 19:40 Assessment/Plan Lines/Catheters IV Catheter Type (from [facility] Saline Lock Urinary Cath still in place: No Assessment/Plan Assessment/Plan 1. Possible urinary tract infection. - per Dr Kern from infectious disease consultation. 2. End-stage renal disease, hemodialysis dependent. - Dr. De Santiago in Nephrology consultation. - on hemodialysis. 3. Hyperkalemia. Continue hemodialysis. 4. Diabetes mellitus. Will continue Lantus and NovoLog. 5. Hypertension. 6. Right malleolar wound with black eschar. Will ask to see patient in vascular surgery consultation and to see patient in podiatry consultation. 7. Anemia. We will continue to monitor hemoglobin and hematocrit. No indication for transfusion at this time. 8. Continue heparin for deep venous thrombosis prophylaxis and 9. Pepcid for peptic ulcer disease prophylaxis. Further recommendations based on clinical course. Plan of care discussed with Dr. Casiano. Exam/Review of Systems Vital Signs Vitals Vital Signs Date Time Temp Pulse Resp B/P Pulse Ox O2 Delivery O2 Flow Rate FiO2 04/22/17 16:36 64 04/22/17 15:51 98.7 18 188/57 96 04/21/17 19:10 Room Air 04/20/17 06:18 2 Intake and Output 04/21/17 04/21/17 04/22/17 15:00 23:00 07:00 Intake Total 300 ml 300 ml Output Total 2500 ml Balance -2200 ml 300 ml Results Result Diagram: 04/21/17 1340 04/22/17 0512 Results 24 hrs Laboratory Tests Test 04/21/17 21:10 04/22/17 05:12 04/22/17 08:23 04/22/17 11:40 Bedside Glucose 132 128 164 Sodium Level 140 Potassium Level 4.2 Chloride Level 93 L Carbon Dioxide Level 32 H Anion Gap 19 H Blood Urea Nitrogen 48 #H Creatinine 8.91 H Glucose Level 160 Calcium Level 8.7 Random Vancomycin Level 8.1 Test 04/22/17 18:08 Bedside Glucose 156 Medications Medications Current Medications Acetaminophen (Tylenol Tab) 325 mg Q4H PRN PO PAIN AND OR ELEVATED TEMP Last administered on 04/22/17t 02:23; Admin Dose 325 MG; Start 04/20/17 at 13:00 Carvedilol (Coreg) 12.5 mg BID PO Last administered on 04/22/17 08:52; Admin Dose 12.5 MG; Start 04/20/17 at 21:00 Multivit/Ca Carb/ B Cmplx/FA/Prenat (Keke-Andi) 1 tab DAILY PO Last administered on 04/22/17 08:52; Admin Dose 1 TAB; Start 04/21/17 at 09:00 Sevelamer HCl (Renagel) 1,600 mg TID PO Last administered on 04/22/17 11:53; Admin Dose 1,600 MG; Start 04/20/17 at 13:00 Diagnostic Test (Pha) (Accu-Chek) 1 ea 02 XX ; Start 04/21/17 at 02:00 Miscellaneous Information 1 ea NOTE XX ; Start 04/20/17 at 17:00 Glucose (Glutose) 15 gm Q15M PRN PO DECREASED GLUCOSE; Start 04/20/17 at 17:00 Glucose (Glutose) 22.5 gm Q15M PRN PO DECREASED GLUCOSE; Start 04/20/17 at 17: 00 Dextrose (D50w Syringe) 25 ml Q15M PRN IV DECREASED GLUCOSE; Start 04/20/17 at 17:00 Dextrose (D50w Syringe) 50 ml Q15M PRN IV DECREASED GLUCOSE; Start 04/20/17 at 17:00 Glucagon (Glucagen) 1 mg Q15M PRN IM DECREASED GLUCOSE; Start 04/20/17 at 17:00 Glucose (Glutose) 15 gm Q15M PRN BUCCAL DECREASED GLUCOSE; Start 04/20/17 at 17 :00 Labetalol HCl (Normodyne) 200 mg QHS PO Last administered on 04/21/17 22:52; Admin Dose 200 MG; Start 04/20/17 at 23:00 Diphenhydramine HCl (Benadryl) 25 mg Q6H PRN PO ITCHING Last administered on 04:01; Admin Dose 25 MG; Start 04/22/17 at 04:00 Doxycycline Hyclate 100 mg 100 mg BID PO Last administered on 04/22/17 12:58; Admin Dose 100 MG; Start 04/22/17 at 12:00 Meropenem/Sodium Chloride (Merrem 500mg/50 ml(Pmx)) 50 ml @ 100 mls/hr Q24H IVPB Last administered on 04/22/17 12:55; Admin Dose 100 MLS/HR; Start 04/22/17 at 12:00 Clonidine (Catapres) 0.1 mg Q4H PRN PO SBP >170 Last administered on 04/22/17 18:13; Admin Dose 0.1 MG; Start 04/22/17 at 17:00 Hydralazine HCl (Apresoline) 25 mg TID PO ; Start 04/22/17 at 21:00 ALEXI BRANDON Apr 22, 2017 19:41 ALEXI BRANDON Apr 22, 2017 19:41
[2017-04-22] MEDS: LABETALOL 200 MG TAB PO SCH (20:38)
[2017-04-22] MEDS: morphine 2 MG INJ IV PRN (22:38)
[2017-04-23] VITALS (20 sets, daily range): BP systolic 86–191; BP diastolic 52–88; PULSE 57–70; RESP 17–20
[2017-04-23] MEDS: DIPHENHYDRAMINE 25 MG CAP PO PRN (01:15)
[2017-04-23] MEDS: HYDROCODONE/APAP (5/325) TAB PO PRN ×2 (01:15→22:43)
[2017-04-23] MEDS: ACCU-CHEK XX SCH (02:00)
[2017-04-23 07:41] LABS: BASOPHILS % 0.4 % (0.0-2.0); EOSINOPHILS # 0.4 10^3/ul (0.0-0.5); EOSINOPHILS % 7.3 % (0.0-7.0); HEMATOCRIT 31.7 % (42.0-52.0); HEMOGLOBIN 10.9 g/dl (14.0-18.0); LYMPHOCYTES # 1.7 10^3/ul (0.8-2.9); LYMPHOCYTES % 33.5 % (15.0-51.0); MEAN CORPUSCULAR HEMOGLOBIN 32.5 pg (29.0-33.0); MEAN CORPUSCULAR HGB CONC 34.4 g/dl (32.0-37.0); MEAN CORPUSCULAR VOLUME 94.6 fl (82.0-101.0); MEAN PLATELET VOLUME 9.9 fl (7.4-10.4); MONOCYTE # 0.6 10^3/ul (0.3-0.9); MONOCYTES % 11.8 % (0.0-11.0); NEUTROPHILS % 46.2 % (39.0-77.0); PLATELET COUNT 226 10^3/UL (140-415); RED BLOOD COUNT 3.35 10^6/ul (4.70-6.10); RED CELL DISTRIBUTION WIDTH 14.2 % (11.5-14.5); WHITE BLOOD COUNT 4.9 10^3/ul (4.8-10.8)
[2017-04-23] MEDS: INSULIN ASPART [NOVOLOG] 3 ML PEN SC SCH ×4 (07:49→21:00)
[2017-04-23 08:03] LABS: CALCIUM 8.6 mg/dl (8.4-10.2); CREATININE 11.02 mg/dl (0.61-1.24); POTASSIUM 4.9 mmol/L (3.5-5.1)
[2017-04-23] MEDS: DOXYCYCLINE 100 MG TAB PO SCH ×2 (08:06→20:52)
[2017-04-23] MEDS: CALCIUM ACETATE 667 MG CAP PO SCH ×3 (08:07→17:27)
[2017-04-23] MEDS: MULTIVIT/CA CARB/B CMPLX/FA TAB PO SCH (08:08)
[2017-04-23] MEDS: SEVELAMER 800 MG TAB PO SCH ×3 (08:08→20:51)
--- NOTE | 2017-04-23 11:09 | PN ---
Date/Time of Note Date/Time of Note DATE: 04/23/17 TIME: 11:09 Assessment/Plan VTE Prophylaxis VTE Prophylaxis Intervention: other Lines/Catheters IV [facility] Type [facility]from [facility] Saline Lock Urinary Cath still in place: No Assessment/Plan Chief Complaint/Hosp Course 1. Possible urinary tract infection. Will obtain urine culture. Continue the patient on broad-spectrum antibiotics. Dr. Tirado will be following patient from infectious disease consultation. 2. End-stage renal disease, hemodialysis dependent. Dr. De Santiago will be following in Nephrology consultation. Patient is undergoing hemodialysis. 3. Hyperkalemia. Continue hemodialysis. 4. Diabetes mellitus. Will continue Lantus and NovoLog. 5. Hypertension. 6. Right malleolar wound with black eschar. Will ask Dr. Jay to see patient in vascular surgery consultation and Dr. Douglass to see patient in podiatry consultation. 7. Anemia. We will continue to monitor hemoglobin and hematocrit. No indication for transfusion at this time. 8. Continue heparin for deep venous thrombosis prophylaxis and Pepcid for peptic ulcer disease prophylaxis. Problems: Subjective 24 Hr Interval Summary Free Text/Dictation Patient has no complaints Exam/Review of Systems Vital Signs Vitals Vital Signs Date Time Temp Pulse Resp B/P Pulse Ox O2 Delivery O2 Flow Rate FiO2 04/23/17 08:24 57 04/23/17 08:01 98.0 17 180/84 98 04/23/17 04:00 Room Air 04/20/17 06:18 2 Intake and Output 04/22/17 04/22/17 04/23/17 15:00 23:00 07:00 Intake Total 1500 ml 500 ml Balance 1500 ml 500 ml Exam Constitutional: well developed Head: atraumatic, normocephalic Neck: supple Respiratory: clear to auscultation Cardiovascular: regular rate and rhythm Gastrointestinal: non-tender, soft Extremities: normal pulses Results Result Diagram: 04/23/17 0715 04/23/17 0715 Results 24 hrs Laboratory Tests Test 04/22/17 11:40 04/22/17 18:08 04/22/17 20:35 04/23/17 07:15 Bedside Glucose 164 156 159 White Blood Count 4.9 Red Blood Count 3.35 L Hemoglobin 10.9 L Hematocrit 31.7 L Mean Corpuscular Volume 94.6 Mean Corpuscular Hemoglobin 32.5 Mean Corpuscular Hemoglobin Concent 34.4 Red Cell Distribution Width 14.2 Platelet Count 226 Mean Platelet Volume 9.9 Neutrophils % 46.2 Lymphocytes % 33.5 Monocytes % 11.8 H Eosinophils % 7.3 H Basophils % 0.4 Nucleated Red Blood Cells % 0.0 Neutrophils # (Manual) 2.3 Lymphocytes # 1.7 Monocytes # 0.6 Eosinophils # 0.4 Basophils # 0.0 Nucleated Red Blood Cells # 0.0 Sodium Level 137 Potassium Level 4.9 Chloride Level 96 L Carbon Dioxide Level 26 Anion Gap 20 H Blood Urea Nitrogen 70 H Creatinine 11.02 #H Glucose Level 96 # Calcium Level 8.6 Test 04/23/17 07:42 Bedside Glucose 88 Medications Medications Current Medications Acetaminophen (Tylenol Tab) 325 mg Q4H PRN PO PAIN AND OR ELEVATED TEMP Last administered on 04/22/17 02:23; Admin Dose 325 MG; Start 04/20/17 at 13:00 Carvedilol (Coreg) 12.5 mg BID PO Last administered on 04/22/17 20:39; Admin Dose 12.5 MG; Start 04/20/17 at 21:00 Multivit/Ca Carb/ B Cmplx/FA/Prenat (Keke-Andi) 1 tab DAILY PO Last administered on 04/23/17 08:08; Admin Dose 1 TAB; Start 04/21/17 at 09:00 Sevelamer HCl (Renagel) 1,600 mg TID PO Last administered on 04/23/17 08:08; Admin Dose 1,600 MG; Start 04/20/17 at 13:00 Diagnostic Test (Pha) (Accu-Chek) 1 ea 02 XX ; Start 04/21/17 at 02:00 Miscellaneous Information 1 ea NOTE XX ; Start 04/20/17 at 17:00 Glucose (Glutose) 15 gm Q15M PRN PO DECREASED GLUCOSE; Start 04/20/17 at 17:00 Glucose (Glutose) 22.5 gm Q15M PRN PO DECREASED GLUCOSE; Start 04/20/17 at 17: 00 Dextrose (D50w Syringe) 25 ml Q15M PRN IV DECREASED GLUCOSE; Start 04/20/17 at 17:00 Dextrose (D50w Syringe) 50 ml Q15M PRN IV DECREASED GLUCOSE; Start 04/20/17 at 17:00 Glucagon (Glucagen) 1 mg Q15M PRN IM DECREASED GLUCOSE; Start 04/20/17 at 17:00 Glucose (Glutose) 15 gm Q15M PRN BUCCAL DECREASED GLUCOSE; Start 04/20/17 at 17 :00 Labetalol HCl (Normodyne) 200 mg QHS PO Last administered on 04/22/17 20:38; Admin Dose 200 MG; Start 04/20/17 at 23:00 Diphenhydramine HCl (Benadryl) 25 mg Q6H PRN PO ITCHING Last administered on 01:15; Admin Dose 25 MG; Start 04/22/17 at 04:00 Doxycycline Hyclate 100 mg 100 mg BID PO Last administered on 04/23/17 08:06; Admin Dose 100 MG; Start 04/22/17 at 12:00 Meropenem/Sodium Chloride (Merrem 500mg/50 ml(Pmx)) 50 ml @ 100 mls/hr Q24H IVPB Last administered on 04/22/17 12:55; Admin Dose 100 MLS/HR; Start 04/22/17 at 12:00 Clonidine (Catapres) 0.1 mg Q4H PRN PO SBP >170 Last administered on 04/22/17 18:13; Admin Dose 0.1 MG; Start 04/22/17 at 17:00 Hydralazine HCl (Apresoline) 25 mg TID PO Last administered on 04/22/17 20:39; Admin Dose 25 MG; Start 04/22/17 at 21:00 Morphine Sulfate (morphine) 2 mg Q6 PRN IV PAIN LEVEL 6-10 Last administered on 04/22/17 22:38; Admin Dose 2 MG; Start 04/22/17 at 20:00 Acetaminophen/ Hydrocodone Bitart ([place] (5/325)) 1 tab Q6H PRN PO PAIN LEVEL 6 -10 Last administered on 04/23/17 01:15; Admin Dose 1 TAB; Start 04/22/17 at 20: 00 REJI PABON Apr 23, 2017 11:09
[2017-04-23] MEDS: MEROPENEM 500MG/50 ML (PMX) 50 ML IVPB SCH (12:44)
--- NOTE | 2017-04-23 19:23 | CONS ---
SERA M[employer]ER [employer] 04/23/17 1923: Date/Time of Note Date/Time of Note DATE: 04/23/17 TIME: 19:18 Assessment/Plan Assessment/Plan Chief Complaint/Hosp Course assessment/impression - penile pain, dysuria, fever and chills. suspected UTI, possibly STDs ( urethritis), if non-ID causes, diabetic neuropathy is considered - diabetes - CAD - ESRD on HD via AVF in LUE - s/p skin grafts of LLE - PVD - R lateral malleolar ulcer with eschar - Charcot's deformity of left foot recommendations_ - pending results: blood (NTD) and urine culture (NTD), GC and chlamydia NAAT ( in process) - continue doxycycline, meropenem and empiric IV vancomycin - if no improvement, we recommend urology consult Management d/w patient and Dr. Kern Problems: Consultation Date/Type/Reason Admit Date/Time Apr 21, 2017 at 21:38 Initial Consult Date 04/22/17 Type of Consultation: Infectious Disease Referring Provider: CHARLINE ALMENDAREZ 24 HR Interval Summary Free Text/Dictation HD done today. Pt with multiple complaints/requests: asking to be placed on his routine meds, wants to shower, asking why he is being served food high in potassium, requesting Podiatry consult to trim left toe nails, wants permission to ambulate in hallway. Denies any pain, SOB, n/v/d, dysuria. Voids very little. Exam/Review of Systems Vital Signs Vitals Vital Signs Date Time Temp Pulse Resp B/P Pulse Ox O2 Delivery O2 Flow Rate FiO2 04/23/17 17:01 60 04/23/17 15:47 98.1 18 146/70 98 04/23/17 04:00 Room Air 04/20/17 06:18 2 Intake and Output 04/22/17 04/22/17 04/23/17 15:00 23:00 07:00 Intake Total 1500 ml 500 ml Balance 1500 ml 500 ml Exam Constitutional: alert, obese, oriented, well developed Head: atraumatic, normocephalic Neck: supple Respiratory: clear to auscultation, normal air movement Cardiovascular: nl pulses, regular rate and rhythm Gastrointestinal: non-tender, soft Extremities: other (LUE AVF with good bruit/thrill; Charcot deformity and pointy toe nails on left foot) Neurological: nl mental status, nl speech, nl strength Skin: nl turgor, other (R lateral malleolar with ulcer/dry eschar), No rash or lesions Results Result Diagram: 04/23/17 0715 04/23/17 0715 Results 24 hrs Laboratory Tests Test 04/22/17 20:35 04/23/17 07:15 04/23/17 07:42 04/23/17 11:50 Bedside Glucose 159 88 154 White Blood Count 4.9 Red Blood Count 3.35 L Hemoglobin 10.9 L Hematocrit 31.7 L Mean Corpuscular Volume 94.6 Mean Corpuscular Hemoglobin 32.5 Mean Corpuscular Hemoglobin Concent 34.4 Red Cell Distribution Width 14.2 Platelet Count 226 Mean Platelet Volume 9.9 Neutrophils % 46.2 Lymphocytes % 33.5 Monocytes % 11.8 H Eosinophils % 7.3 H Basophils % 0.4 Nucleated Red Blood Cells % 0.0 Neutrophils # (Manual) 2.3 Lymphocytes # 1.7 Monocytes # 0.6 Eosinophils # 0.4 Basophils # 0.0 Nucleated Red Blood Cells # 0.0 Sodium Level 137 Potassium Level 4.9 Chloride Level 96 L Carbon Dioxide Level 26 Anion Gap 20 H Blood Urea Nitrogen 70 H Creatinine 11.02 #H Glucose Level 96 # Calcium Level 8.6 Test 04/23/17 17:20 Bedside Glucose 161 Medications Medications Current Medications Acetaminophen (Tylenol Tab) 325 mg Q4H PRN PO PAIN AND OR ELEVATED TEMP Last administered on 04/22/17 02:23; Admin Dose 325 MG; Start 04/20/17 at 13:00 Carvedilol (Coreg) 12.5 mg BID PO Last administered on 04/22/17 20:39; Admin Dose 12.5 MG; Start 04/20/17 at 21:00 Multivit/Ca Carb/ B Cmplx/FA/Prenat (Keke-Andi) 1 tab DAILY PO Last administered on 04/23/17 08:08; Admin Dose 1 TAB; Start 04/21/17 at 09:00 Sevelamer HCl (Renagel) 1,600 mg TID PO Last administered on 04/23/17 12:44; Admin Dose 1,600 MG; Start 04/20/17 at 13:00 Diagnostic Test (Pha) (Accu-Chek) 1 ea 02 XX ; Start 04/21/17 at 02:00 Miscellaneous Information 1 ea NOTE XX ; Start 04/20/17 at 17:00 Glucose (Glutose) 15 gm Q15M PRN PO DECREASED GLUCOSE; Start 04/20/17 at 17:00 Glucose (Glutose) 22.5 gm Q15M PRN PO DECREASED GLUCOSE; Start 04/20/17 at 17: 00 Dextrose (D50w Syringe) 25 ml Q15M PRN IV DECREASED GLUCOSE; Start 04/20/17 at 17:00 Dextrose (D50w Syringe) 50 ml Q15M PRN IV DECREASED GLUCOSE; Start 04/20/17 at 17:00 Glucagon (Glucagen) 1 mg Q15M PRN IM DECREASED GLUCOSE; Start 04/20/17 at 17:00 Glucose (Glutose) 15 gm Q15M PRN BUCCAL DECREASED GLUCOSE; Start 04/20/17 at 17 :00 Labetalol HCl (Normodyne) 200 mg QHS PO Last administered on 04/22/17 20:38; Admin Dose 200 MG; Start 04/20/17 at 23:00 Diphenhydramine HCl (Benadryl) 25 mg Q6H PRN PO ITCHING Last administered on 01:15; Admin Dose 25 MG; Start 04/22/17 at 04:00 Doxycycline Hyclate 100 mg 100 mg BID PO Last administered on 04/23/17 08:06; Admin Dose 100 MG; Start 04/22/17 at 12:00 Meropenem/Sodium Chloride (Merrem 500mg/50 ml(Pmx)) 50 ml @ 100 mls/hr Q24H IVPB Last administered on 04/23/17 12:44; Admin Dose 100 MLS/HR; Start 04/22/17 at 12:00 Clonidine (Catapres) 0.1 mg Q4H PRN PO SBP >170 Last administered on 04/22/17 18:13; Admin Dose 0.1 MG; Start 04/22/17 at 17:00 Hydralazine HCl (Apresoline) 25 mg TID PO Last administered on 04/22/17 20:39; Admin Dose 25 MG; Start 04/22/17 at 21:00 Morphine Sulfate (morphine) 2 mg Q6 PRN IV PAIN LEVEL 6-10 Last administered on 04/22/17 22:38; Admin Dose 2 MG; Start 04/22/17 at 20:00 Acetaminophen/ Hydrocodone Bitart ([place] (5/325)) 1 tab Q6H PRN PO PAIN LEVEL 6 -10 Last administered on 04/23/17 01:15; Admin Dose 1 TAB; Start 04/22/17 at 20: 00 NATTY KERN M.D. 04/24/17 1807: Assessment/Plan Assessment/Plan Additional Assessment/Plan Erlin attestation: I discussed the management with CHRIS Miller and agree with above Exam/Review of Systems Results Result Diagram: 04/23/17 0715 04/23/17 0715 SERA MILLER NP Apr 23, 2017 19:23 NATTY KENR M.D. Apr 24, 2017 18:07
--- NOTE | 2017-04-23 19:25 | CONS ---
Date/Time of Note Date/Time of Note DATE: 04/23/17 TIME: 19:24 Assessment/Plan Assessment/Plan Additional Assessment/Plan 1. Possible urinary tract infection. 2. End-stage renal disease, hemodialysis dependent. 3. Hyperkalemia. 4. Diabetes mellitus. 5. Hypertension. 6. Right malleolar wound with black eschar. 7. Anemia. S/p HD MWF Cont to monitor electrolytes, volume status. Consultation Date/Type/Reason Admit Date/Time Apr 21, 2017 at 21:38 Initial Consult Date 04/20/17 Type of Consultation: Renal Referring Provider: CHARLINE ALMENDAREZ 24 HR Interval Summary Free Text/Dictation S/p HD Constitutional: No requiring O2 Exam/Review of Systems Vital Signs Vitals Vital Signs Date Time Temp Pulse Resp B/P Pulse Ox O2 Delivery O2 Flow Rate FiO2 04/23/17 17:01 60 04/23/17 15:47 98.1 18 146/70 98 04/23/17 04:00 Room Air 04/20/17 06:18 2 Intake and Output 04/22/17 04/22/17 04/23/17 15:00 23:00 07:00 Intake Total 1500 ml 500 ml Balance 1500 ml 500 ml Results Result Diagram: 04/23/17 0715 04/23/17 0715 Results 24 hrs Laboratory Tests Test 04/22/17 20:35 04/23/17 07:15 04/23/17 07:42 04/23/17 11:50 Bedside Glucose 159 88 154 White Blood Count 4.9 Red Blood Count 3.35 L Hemoglobin 10.9 L Hematocrit 31.7 L Mean Corpuscular Volume 94.6 Mean Corpuscular Hemoglobin 32.5 Mean Corpuscular Hemoglobin Concent 34.4 Red Cell Distribution Width 14.2 Platelet Count 226 Mean Platelet Volume 9.9 Neutrophils % 46.2 Lymphocytes % 33.5 Monocytes % 11.8 H Eosinophils % 7.3 H Basophils % 0.4 Nucleated Red Blood Cells % 0.0 Neutrophils # (Manual) 2.3 Lymphocytes # 1.7 Monocytes # 0.6 Eosinophils # 0.4 Basophils # 0.0 Nucleated Red Blood Cells # 0.0 Sodium Level 137 Potassium Level 4.9 Chloride Level 96 L Carbon Dioxide Level 26 Anion Gap 20 H Blood Urea Nitrogen 70 H Creatinine 11.02 #H Glucose Level 96 # Calcium Level 8.6 Test 9/2/17 17:20 Bedside Glucose 161 Medications Medications Current Medications Acetaminophen (Tylenol Tab) 325 mg Q4H PRN PO PAIN AND OR ELEVATED TEMP Last administered on 04/22/17 02:23; Admin Dose 325 MG; Start 04/20/17 at 13:00 Carvedilol (Coreg) 12.5 mg BID PO Last administered on 04/22/17 20:39; Admin Dose 12.5 MG; Start 04/20/17 at 21:00 Multivit/Ca Carb/ B Cmplx/FA/Prenat (Keke-Andi) 1 tab DAILY PO Last administered on 04/23/17 08:08; Admin Dose 1 TAB; Start 04/21/17 at 09:00 Sevelamer HCl (Renagel) 1,600 mg TID PO Last administered on 04/23/17 12:44; Admin Dose 1,600 MG; Start 04/20/17 at 13:00 Diagnostic Test (Pha) (Accu-Chek) 1 ea 02 XX ; Start 04/21/17 at 02:00 Miscellaneous Information 1 ea NOTE XX ; Start 04/20/17 at 17:00 Glucose (Glutose) 15 gm Q15M PRN PO DECREASED GLUCOSE; Start 04/20/17 at 17:00 Glucose (Glutose) 22.5 gm Q15M PRN PO DECREASED GLUCOSE; Start 04/20/17 at 17: 00 Dextrose (D50w Syringe) 25 ml Q15M PRN IV DECREASED GLUCOSE; Start 04/20/17 at 17:00 Dextrose (D50w Syringe) 50 ml Q15M PRN IV DECREASED GLUCOSE; Start 04/20/17 at 17:00 Glucagon (Glucagen) 1 mg Q15M PRN IM DECREASED GLUCOSE; Start 04/20/17 at 17:00 Glucose (Glutose) 15 gm Q15M PRN BUCCAL DECREASED GLUCOSE; Start 04/20/17 at 17 :00 Labetalol HCl (Normodyne) 200 mg QHS PO Last administered on 04/22/17 20:38; Admin Dose 200 MG; Start 04/20/17 at 23:00 Diphenhydramine HCl (Benadryl) 25 mg Q6H PRN PO ITCHING Last administered on 01:15; Admin Dose 25 MG; Start 04/22/17 at 04:00 Doxycycline Hyclate 100 mg 100 mg BID PO Last administered on 04/23/17 08:06; Admin Dose 100 MG; Start 04/22/17 at 12:00 Meropenem/Sodium Chloride (Merrem 500mg/50 ml(Pmx)) 50 ml @ 100 mls/hr Q24H IVPB Last administered on 04/23/17 12:44; Admin Dose 100 MLS/HR; Start 04/22/17 at 12:00 Clonidine (Catapres) 0.1 mg Q4H PRN PO SBP >170 Last administered on 04/22/17 18:13; Admin Dose 0.1 MG; Start 04/22/17 at 17:00 Hydralazine HCl (Apresoline) 25 mg TID PO Last administered on 04/22/17 20:39; Admin Dose 25 MG; Start 04/22/17 at 21:00 Morphine Sulfate (morphine) 2 mg Q6 PRN IV PAIN LEVEL 6-10 Last administered on 04/22/17 22:38; Admin Dose 2 MG; Start 04/22/17 at 20:00 Acetaminophen/ Hydrocodone Bitart ([place] (5/325)) 1 tab Q6H PRN PO PAIN LEVEL 6 -10 Last administered on 04/23/17 01:15; Admin Dose 1 TAB; Start 04/22/17 at 20: 00 ADAM DUVAL MD Apr 23, 2017 19:25
[2017-04-23] MEDS: LABETALOL 200 MG TAB PO SCH (20:52)
[2017-04-24] VITALS (14 sets, daily range): BP systolic 123–181; BP diastolic 61–85; PULSE 55–66; RESP 17–20
[2017-04-24] MEDS: ACCU-CHEK XX SCH (02:05)
[2017-04-24] MEDS: morphine 2 MG INJ IV PRN (03:03)
[2017-04-24] MEDS: HYDROCODONE/APAP (5/325) TAB PO PRN (05:30)
[2017-04-24] MEDS: INSULIN ASPART [NOVOLOG] 3 ML PEN SC SCH ×4 (07:40→20:24)
[2017-04-24] MEDS: SEVELAMER 800 MG TAB PO SCH ×3 (08:39→20:24)
[2017-04-24] MEDS: DOXYCYCLINE 100 MG TAB PO SCH ×2 (08:40→20:23)
[2017-04-24] MEDS: CALCIUM ACETATE 667 MG CAP PO SCH ×3 (08:40→17:27)
[2017-04-24] MEDS: MULTIVIT/CA CARB/B CMPLX/FA TAB PO SCH (08:40)
--- NOTE | 2017-04-24 11:54 | PN ---
Date/Time of Note Date/Time of Note DATE: 04/24/17 TIME: 11:53 Assessment/Plan VTE Prophylaxis VTE Prophylaxis Intervention: other Lines/Catheters [facility] Type [facility]from [facility] Sal[facility] Urinary Cath still in place: No Assessment/Plan Chief Complaint/Hosp Course 1. Possible urinary tract infection. Will obtain urine culture. Continue the patient on broad-spectrum antibiotics. Dr. Tirado will be following patient from infectious disease consultation. 2. End-stage renal disease, hemodialysis dependent. Dr. De Santiago will be following in Nephrology consultation. Patient is undergoing hemodialysis. 3. Hyperkalemia. Continue hemodialysis. 4. Diabetes mellitus. Will continue Lantus and NovoLog. 5. Hypertension. 6. Right malleolar wound with black eschar. Will ask Dr. Jay to see patient in vascular surgery consultation and Dr. Douglass to see patient in podiatry consultation. 7. Anemia. We will continue to monitor hemoglobin and hematocrit. No indication for transfusion at this time. 8. Continue heparin for deep venous thrombosis prophylaxis and Pepcid for peptic ulcer disease prophylaxis. Problems: Subjective 24 Hr Interval Summary Free Text/Dictation Patient has no complaints Exam/Review of Systems Vital Signs Vitals Vital Signs Date Time Temp Pulse Resp B/P Pulse Ox O2 Delivery O2 Flow Rate FiO2 04/24/17 11:27 98.1 62 17 123/61 97 04/24/17 00:30 Room Air Intake and Output 04/23/17 04/23/17 04/24/17 15:00 23:00 07:00 Intake Total 500 ml 1090 ml Output Total 2600 ml Balance -2100 ml 1090 ml Exam Constitutional: well developed Head: atraumatic, normocephalic Neck: supple Respiratory: clear to auscultation Cardiovascular: regular rate and rhythm Gastrointestinal: non-tender, soft Extremities: normal pulses Results Result Diagram: 04/23/17 0715 04/23/17 0715 Results 24 hrs Laboratory Tests Test 04/23/17 17:20 04/23/17 20:55 04/24/17 07:36 04/24/17 11:24 Bedside Glucose 161 161 101 151 Medications Medications Current Medications Acetaminophen (Tylenol Tab) 325 mg Q4H PRN PO PAIN AND OR ELEVATED TEMP Last administered on 04/22/17t 02:23; Admin Dose 325 MG; Start 04/20/17 at 13:00 Carvedilol (Coreg) 12.5 mg BID PO Last administered on 04/23/17 20:51; Admin Dose 12.5 MG; Start 04/20/17 at 21:00 Multivit/Ca Carb/ B Cmplx/FA/Prenat (Keke-Andi) 1 tab DAILY PO Last administered on 04/24/17 08:40; Admin Dose 1 TAB; Start 04/21/17 at 09:00 Sevelamer HCl (Renagel) 1,600 mg TID PO Last administered on 04/24/17 08:39; Admin Dose 1,600 MG; Start 04/20/17 at 13:00 Diagnostic Test (Pha) (Accu-Chek) 1 ea 02 XX ; Start 04/21/17 at 02:00 Miscellaneous Information 1 ea NOTE XX ; Start 04/20/17 at 17:00 Glucose (Glutose) 15 gm Q15M PRN PO DECREASED GLUCOSE; Start 04/20/17 at 17:00 Glucose (Glutose) 22.5 gm Q15M PRN PO DECREASED GLUCOSE; Start 04/20/17 at 17: 00 Dextrose (D50w Syringe) 25 ml Q15M PRN IV DECREASED GLUCOSE; Start 04/20/17 at 17:00 Dextrose (D50w Syringe) 50 ml Q15M PRN IV DECREASED GLUCOSE; Start 04/20/17 at 17:00 Glucagon (Glucagen) 1 mg Q15M PRN IM DECREASED GLUCOSE; Start 04/20/17 at 17:00 Glucose (Glutose) 15 gm Q15M PRN BUCCAL DECREASED GLUCOSE; Start 04/20/17 at 17 :00 Labetalol HCl (Normodyne) 200 mg QHS PO Last administered on 04/23/17 20:52; Admin Dose 200 MG; Start 04/20/17 at 23:00 Diphenhydramine HCl (Benadryl) 25 mg Q6H PRN PO ITCHING Last administered on 01:15; Admin Dose 25 MG; Start 04/22/17 at 04:00 Doxycycline Hyclate 100 mg 100 mg BID PO Last administered on 04/24/17 08:40; Admin Dose 100 MG; Start 04/22/17 at 12:00 Meropenem/Sodium Chloride (Merrem 500mg/50 ml(Pmx)) 50 ml @ 100 mls/hr Q24H IVPB Last administered on 04/23/17 12:44; Admin Dose 100 MLS/HR; Start 04/22/17 at 12:00 Clonidine (Catapres) 0.1 mg Q4H PRN PO SBP >170 Last administered on 04/24/17 05:32; Admin Dose 0.1 MG; Start 04/22/17 at 17:00 Hydralazine HCl (Apresoline) 25 mg TID PO Last administered on 04/24/17 08:41; Admin Dose 25 MG; Start 04/22/17 at 21:00 Morphine Sulfate (morphine) 2 mg Q6 PRN IV PAIN LEVEL 6-10 Last administered on 04/24/17 03:03; Admin Dose 2 MG; Start 04/22/17 at 20:00 Acetaminophen/ Hydrocodone Bitart ([place] (5/325)) 1 tab Q6H PRN PO PAIN LEVEL 6 -10 Last administered on 04/24/17 05:30; Admin Dose 1 TAB; Start 04/22/17 at 20: 00 Miscellaneous Information (*Rx Drug Level Order Reminder*) RANDOM VANCOMYCIN LEVEL ... ONCE ONCE XX ; Start 04/25/17 at 05:00; Stop 04/25/17 at 05:01 REJI PABON Apr 24, 2017 11:54
[2017-04-24] MEDS: MEROPENEM 500MG/50 ML (PMX) 50 ML IVPB SCH (12:43)
--- NOTE | 2017-04-24 14:04 | CONS ---
Date/Time of Note Date/Time of Note DATE: 04/24/17 TIME: 14:04 Assessment/Plan Assessment/Plan Additional Assessment/Plan 1. Possible urinary tract infection. 2. End-stage renal disease, hemodialysis dependent. 3. Hyperkalemia. 4. Diabetes mellitus. 5. Hypertension. 6. Right malleolar wound with black eschar. 7. Anemia. S/p HD yesterday HD tomorrow if still inpatient. MWF schedule Cont to monitor electrolytes, volume status. Dose Abx rx to ESRD. Consultation Date/Type/Reason Admit Date/Time Apr 21, 2017 at 21:38 Initial Consult Date 04/20/17 Type of Consultation: Renal Referring Provider: CHARLINE ALMENDAREZ 24 HR Interval Summary Constitutional: No requiring O2 Exam/Review of Systems Vital Signs Vitals Vital Signs Date Time Temp Pulse Resp B/P Pulse Ox O2 Delivery O2 Flow Rate FiO2 04/24/17 12:36 58 04/24/17 11:27 98.1 17 123/61 97 04/24/17 00:30 Room Air Intake and Output 04/23/17 04/23/17 04/24/17 15:00 23:00 07:00 Intake Total 500 ml 1090 ml Output Total 2600 ml Balance -2100 ml 1090 ml Exam Constitutional: No distress ENMT: mucosa pink and moist Neck: No jvd Respiratory: clear to auscultation Cardiovascular: regular rate and rhythm, No edema Gastrointestinal: soft 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, nl mental status, No lethargic Results Result Diagram: 04/23/1715 04/23/17 0715 Results 24 hrs Laboratory Tests Test 04/23/17 17:20 04/23/17 20:55 04/24/17 07:36 04/24/17 11:24 Bedside Glucose 161 161 101 151 Medications Medications Current Medications Acetaminophen (Tylenol Tab) 325 mg Q4H PRN PO PAIN AND OR ELEVATED TEMP Last administered on 04/22/17 02:23; Admin Dose 325 MG; Start 04/20/17 at 13:00 Carvedilol (Coreg) 12.5 mg BID PO Last administered on 04/23/17 20:51; Admin Dose 12.5 MG; Start 04/20/17 at 21:00 Multivit/Ca Carb/ B Cmplx/FA/Prenat (Keke-Andi) 1 tab DAILY PO Last administered on 04/24/17 08:40; Admin Dose 1 TAB; Start 04/21/17 at 09:00 Sevelamer HCl (Renagel) 1,600 mg TID PO Last administered on 04/24/17 12:41; Admin Dose 1,600 MG; Start 04/20/17 at 13:00 Diagnostic Test (Pha) (Accu-Chek) 1 ea 02 XX ; Start 04/21/17 at 02:00 Miscellaneous Information 1 ea NOTE XX ; Start 04/20/17 at 17:00 Glucose (Glutose) 15 gm Q15M PRN PO DECREASED GLUCOSE; Start 04/20/17 at 17:00 Glucose (Glutose) 22.5 gm Q15M PRN PO DECREASED GLUCOSE; Start 04/20/17 at 17: 00 Dextrose (D50w Syringe) 25 ml Q15M PRN IV DECREASED GLUCOSE; Start 04/20/17 at 17:00 Dextrose (D50w Syringe) 50 ml Q15M PRN IV DECREASED GLUCOSE; Start 04/20/17 at 17:00 Glucagon (Glucagen) 1 mg Q15M PRN IM DECREASED GLUCOSE; Start 04/20/17 at 17:00 Glucose (Glutose) 15 gm Q15M PRN BUCCAL DECREASED GLUCOSE; Start 04/20/17 at 17 :00 Labetalol HCl (Normodyne) 200 mg QHS PO Last administered on 04/23/17 20:52; Admin Dose 200 MG; Start 04/20/17 at 23:00 Diphenhydramine HCl (Benadryl) 25 mg Q6H PRN PO ITCHING Last administered on 01:15; Admin Dose 25 MG; Start 04/22/17 at 04:00 Doxycycline Hyclate 100 mg 100 mg BID PO Last administered on 04/24/17 08:40; Admin Dose 100 MG; Start 04/22/17 at 12:00 Meropenem/Sodium Chloride (Merrem 500mg/50 ml(Pmx)) 50 ml @ 100 mls/hr Q24H IVPB Last administered on 04/24/17 12:43; Admin Dose 100 MLS/HR; Start 04/22/17 at 12:00 Clonidine (Catapres) 0.1 mg Q4H PRN PO SBP >170 Last administered on 04/24/17 05:32; Admin Dose 0.1 MG; Start 04/22/17 at 17:00 Hydralazine HCl (Apresoline) 25 mg TID PO Last administered on 04/24/17 12:41; Admin Dose 25 MG; Start 04/22/17 at 21:00 Morphine Sulfate (morphine) 2 mg Q6 PRN IV PAIN LEVEL 6-10 Last administered on 04/24/17 03:03; Admin Dose 2 MG; Start 04/22/17 at 20:00 Acetaminophen/ Hydrocodone Bitart ([place] (5/325)) 1 tab Q6H PRN PO PAIN LEVEL 6 -10 Last administered on 04/24/17 05:30; Admin Dose 1 TAB; Start 04/22/17 at 20: 00 Miscellaneous Information (*Rx Drug Level Order Reminder*) RANDOM VANCOMYCIN LEVEL ... ONCE ONCE XX ; Start 04/25/17 at 05:00; Stop 04/25/17 at 05:01 ADAM DUVAL MD Apr 24, 2017 14:04
--- NOTE | 2017-04-24 19:36 | CONS ---
Date/Time of Note Date/Time of Note DATE: 04/24/17 TIME: 19:32 Assessment/Plan Assessment/Plan Chief Complaint/Hosp Course assessment/impression - penile pain, dysuria, fever and chills, resolving - diabetes - CAD - ESRD on HD via AVF in LUE - s/p skin grafts of LLE - PVD - R lateral malleolar ulcer with eschar - Charcot's deformity of left foot recommendations: - pending results: speciation and sensitivity of Gram negative bacteria in his urine culture, GC and chlamydia NAAT (in process) - continue empiric doxycycline for chlamydia urithritis - continue empiric meropenem for MDR-Gram negative UTI - d/c empiric IV vancomycin management d/w Pt Problems: Consultation Date/Type/Reason Admit Date/Time Apr 21, 2017 at 21:38 Initial Consult Date 04/22/17 Type of Consultation: ID Referring Provider: CHARLINE ALMENDAREZ 24 HR Interval Summary Constitutional: no complaints Detailed Summary Eyes: no complaints ENT: no complaints Respiratory: no complaints Cardiovascular: no complaints Gastrointestinal: no complaints Genitourinary: no complaints, other (makes only little urine), No discharge, No dysuria, No flank pain, No hematuria Musculoskeletal: no complaints Skin: no complaints Neurologic: no complaints Exam/Review of Systems Vital Signs Vitals Vital Signs Date Time Temp Pulse Resp B/P Pulse Ox O2 Delivery O2 Flow Rate FiO2 04/24/17 17:06 58 04/24/17 16:18 98.3 18 156/73 96 04/24/17 00:30 Room Air Intake and Output 04/23/17 04/23/17 04/24/17 15:00 23:00 07:00 Intake Total 500 ml 1090 ml Output Total 2600 ml Balance -2100 ml 1090 ml Exam Constitutional: alert, oriented, well developed Psych: nl mood/affect, no complaints Head: atraumatic, normocephalic Eyes: nl conjunctiva, nl lids ENMT: nl external ears & nose, nl nasal mucosa & septum Neck: supple Musculoskeletal: nl extremities to inspection Extremities: normal pulses Neurological: LINEMAN II-XII intact, nl mental status Skin: nl turgor, No rash or lesions Results Result Diagram: 04/23/17 0715 04/23/17 0715 Results 24 hrs Laboratory Tests Test 04/23/17 20:55 04/24/17 07:36 04/24/17 11:24 04/24/17 17:26 Bedside Glucose 161 101 151 126 Medications Medications Current Medications Acetaminophen (Tylenol Tab) 325 mg Q4H PRN PO PAIN AND OR ELEVATED TEMP Last administered on 04/22/17 02:23; Admin Dose 325 MG; Start 04/20/17 at 13:00 Carvedilol (Coreg) 12.5 mg BID PO Last administered on 04/23/17 20:51; Admin Dose 12.5 MG; Start 04/20/17 at 21:00 Multivit/Ca Carb/ B Cmplx/FA/Prenat (Keke-Andi) 1 tab DAILY PO Last administered on 04/24/17 08:40; Admin Dose 1 TAB; Start 04/21/17 at 09:00 Sevelamer HCl (Renagel) 1,600 mg TID PO Last administered on 04/24/17 12:41; Admin Dose 1,600 MG; Start 04/20/17 at 13:00 Diagnostic Test (Pha) (Accu-Chek) 1 ea 02 XX ; Start 04/21/17 at 02:00 Miscellaneous Information 1 ea NOTE XX ; Start 04/20/17 at 17:00 Glucose (Glutose) 15 gm Q15M PRN PO DECREASED GLUCOSE; Start 04/20/17 at 17:00 Glucose (Glutose) 22.5 gm Q15M PRN PO DECREASED GLUCOSE; Start 04/20/17 at 17: 00 Dextrose (D50w Syringe) 25 ml Q15M PRN IV DECREASED GLUCOSE; Start 04/20/17 at 17:00 Dextrose (D50w Syringe) 50 ml Q15M PRN IV DECREASED GLUCOSE; Start 04/20/17 at 17:00 Glucagon (Glucagen) 1 mg Q15M PRN IM DECREASED GLUCOSE; Start 04/20/17 at 17:00 Glucose (Glutose) 15 gm Q15M PRN BUCCAL DECREASED GLUCOSE; Start 04/20/17 at 17 :00 Labetalol HCl (Normodyne) 200 mg QHS PO Last administered on 04/23/17 20:52; Admin Dose 200 MG; Start 04/20/17 at 23:00 Diphenhydramine HCl (Benadryl) 25 mg Q6H PRN PO ITCHING Last administered on 01:15; Admin Dose 25 MG; Start 04/22/17 at 04:00 Doxycycline Hyclate 100 mg 100 mg BID PO Last administered on 04/24/17 08:40; Admin Dose 100 MG; Start 04/22/17 at 12:00 Meropenem/Sodium Chloride (Merrem 500mg/50 ml(Pmx)) 50 ml @ 100 mls/hr Q24H IVPB Last administered on 04/24/17 12:43; Admin Dose 100 MLS/HR; Start 04/22/17 at 12:00 Clonidine (Catapres) 0.1 mg Q4H PRN PO SBP >170 Last administered on 04/24/17 05:32; Admin Dose 0.1 MG; Start 04/22/17 at 17:00 Hydralazine HCl (Apresoline) 25 mg TID PO Last administered on 04/24/17 12:41; Admin Dose 25 MG; Start 04/22/17 at 21:00 Morphine Sulfate (morphine) 2 mg Q6 PRN IV PAIN LEVEL 6-10 Last administered on 04/24/17 03:03; Admin Dose 2 MG; Start 04/22/17 at 20:00 Acetaminophen/ Hydrocodone Bitart ([place] (5/325)) 1 tab Q6H PRN PO PAIN LEVEL 6 -10 Last administered on 04/24/17 05:30; Admin Dose 1 TAB; Start 04/22/17 at 20: 00 Miscellaneous Information (*Rx Drug Level Order Reminder*) RANDOM VANCOMYCIN LEVEL ... ONCE ONCE XX ; Start 04/25/17 at 05:00; Stop 04/25/17 at 05:01 NATTY DEE M.D. Apr 24, 2017 19:36
[2017-04-24] MEDS: LABETALOL 200 MG TAB PO SCH (21:57)
[2017-04-25] VITALS (22 sets, daily range): BP systolic 122–186; BP diastolic 58–80; PULSE 60–85; RESP 18–20
[2017-04-25] MEDS: ACCU-CHEK XX SCH (02:00)
[2017-04-25 06:30] LABS: BASOPHILS % 0.2 % (0.0-2.0); EOSINOPHILS # 0.4 10^3/ul (0.0-0.5); EOSINOPHILS % 5.8 % (0.0-7.0); HEMATOCRIT 32.2 % (42.0-52.0); HEMOGLOBIN 10.7 g/dl (14.0-18.0); LYMPHOCYTES # 1.9 10^3/ul (0.8-2.9); LYMPHOCYTES % 29.4 % (15.0-51.0); MEAN CORPUSCULAR HEMOGLOBIN 31.1 pg (29.0-33.0); MEAN CORPUSCULAR HGB CONC 33.2 g/dl (32.0-37.0); MEAN CORPUSCULAR VOLUME 93.6 fl (82.0-101.0); MEAN PLATELET VOLUME 9.8 fl (7.4-10.4); MONOCYTE # 0.7 10^3/ul (0.3-0.9); MONOCYTES % 11.3 % (0.0-11.0); PLATELET COUNT 243 10^3/UL (140-415); RED BLOOD COUNT 3.44 10^6/ul (4.70-6.10); RED CELL DISTRIBUTION WIDTH 14.3 % (11.5-14.5); WHITE BLOOD COUNT 6.4 10^3/ul (4.8-10.8)
[2017-04-25 06:58] LABS: CALCIUM 8.9 mg/dl (8.4-10.2); CREATININE 12.1 mg/dl (0.61-1.24); POTASSIUM 5.1 mmol/L (3.5-5.1)
[2017-04-25] MEDS: INSULIN ASPART [NOVOLOG] 3 ML PEN SC SCH ×4 (08:00→21:07)
[2017-04-25] MEDS: CALCIUM ACETATE 667 MG CAP PO SCH ×3 (08:04→18:03)
[2017-04-25] MEDS: MULTIVIT/CA CARB/B CMPLX/FA TAB PO SCH (08:04)
[2017-04-25] MEDS: SEVELAMER 800 MG TAB PO SCH ×3 (08:05→21:04)
[2017-04-25] MEDS: DOXYCYCLINE 100 MG TAB PO SCH ×2 (08:05→21:03)
--- NOTE | 2017-04-25 11:34 | PN ---
Date/Time of Note Date/Time of Note DATE: 04/25/17 TIME: 11:34 Assessment/Plan VTE Prophylaxis VTE Prophylaxis Intervention: other Lines/Catheters IV Catheter Type (from [facility]): [place] Lock Urinary Cath still in place: No Assessment/Plan Chief Complaint/Hosp Course 1. Possible urinary tract infection. Will obtain urine culture. Continue the patient on broad-spectrum antibiotics. Dr. Tirado will be following patient from infectious disease consultation. 2. End-stage renal disease, hemodialysis dependent. Dr. De Santiago will be following in Nephrology consultation. Patient is undergoing hemodialysis. 3. Hyperkalemia. Continue hemodialysis. 4. Diabetes mellitus. Will continue Lantus and NovoLog. 5. Hypertension. 6. Right malleolar wound with black eschar. Will ask Dr. Jay to see patient in vascular surgery consultation and Dr. Douglass to see patient in podiatry consultation. 7. Anemia. We will continue to monitor hemoglobin and hematocrit. No indication for transfusion at this time. 8. Continue heparin for deep venous thrombosis prophylaxis and Pepcid for peptic ulcer disease prophylaxis. Problems: Subjective 24 Hr Interval Summary Free Text/Dictation Patient has no complaints Exam/Review of Systems Vital Signs Vitals Vital Signs Date Time Temp Pulse Resp B/P Pulse Ox O2 Delivery O2 Flow Rate FiO2 04/25/17 08:12 60 04/25/17 08:04 98.2 19 181/74 98 04/24/17 00:30 Room Air Intake and Output 04/24/17 04/24/17 04/25/17 15:00 23:00 07:00 Intake Total 950 ml Balance 950 ml Exam Constitutional: well developed Head: atraumatic, normocephalic Neck: supple Respiratory: clear to auscultation Cardiovascular: regular rate and rhythm Gastrointestinal: non-tender, soft Extremities: normal pulses Results Result Diagram: 04/25/17 0542 04/25/17 0542 Results 24 hrs Laboratory Tests Test 04/24/17 17:26 04/24/17 20:08 04/25/17 05:42 04/25/17 05:45 Bedside Glucose 126 176 White Blood Count 6.4 # Red Blood Count 3.44 L Hemoglobin 10.7 L Hematocrit 32.2 L Mean Corpuscular Volume 93.6 Mean Corpuscular Hemoglobin 31.1 Mean Corpuscular Hemoglobin Concent 33.2 Red Cell Distribution Width 14.3 Platelet Count 243 Mean Platelet Volume 9.8 Neutrophils % 52.0 Lymphocytes % 29.4 Monocytes % 11.3 H Eosinophils % 5.8 Basophils % 0.2 Nucleated Red Blood Cells % 0.0 Neutrophils # (Manual) 3.3 Lymphocytes # 1.9 Monocytes # 0.7 Eosinophils # 0.4 Basophils # 0.0 Nucleated Red Blood Cells # 0.0 Sodium Level 134 L Potassium Level 5.1 Chloride Level 94 L Carbon Dioxide Level 23 Anion Gap 22 H Blood Urea Nitrogen 80 H Creatinine 12.10 H Glucose Level 88 Calcium Level 8.9 Random Vancomycin Level 18.7 Test 04/25/17 08:02 Bedside Glucose 86 Medications Medications Current Medications Acetaminophen (Tylenol Tab) 325 mg Q4H PRN PO PAIN AND OR ELEVATED TEMP Last administered on 04/22/17 02:23; Admin Dose 325 MG; Start 04/20/17 at 13:00 Carvedilol (Coreg) 12.5 mg BID PO Last administered on 04/24/17 21:55; Admin Dose 12.5 MG; Start 04/20/17 at 21:00 Multivit/Ca Carb/ B Cmplx/FA/Prenat (Keke-Andi) 1 tab DAILY PO Last administered on 04/25/17 08:04; Admin Dose 1 TAB; Start 04/21/17 at 09:00 Sevelamer HCl (Renagel) 1,600 mg TID PO Last administered on 04/25/17 08:05; Admin Dose 1,600 MG; Start 04/20/17 at 13:00 Diagnostic Test (Pha) (Accu-Chek) 1 ea 02 XX ; Start 04/21/17 at 02:00 Miscellaneous Information 1 ea NOTE XX ; Start 04/20/17 at 17:00 Glucose (Glutose) 15 gm Q15M PRN PO DECREASED GLUCOSE; Start 04/20/17 at 17:00 Glucose (Glutose) 22.5 gm Q15M PRN PO DECREASED GLUCOSE; Start 04/20/17 at 17: 00 Dextrose (D50w Syringe) 25 ml Q15M PRN IV DECREASED GLUCOSE; Start 04/20/17 at 17:00 Dextrose (D50w Syringe) 50 ml Q15M PRN IV DECREASED GLUCOSE; Start 04/20/17 at 17:00 Glucagon (Glucagen) 1 mg Q15M PRN IM DECREASED GLUCOSE; Start 04/20/17 at 17:00 Glucose (Glutose) 15 gm Q15M PRN BUCCAL DECREASED GLUCOSE; Start 04/20/17 at 17 :00 Labetalol HCl (Normodyne) 200 mg QHS PO Last administered on 04/24/17 21:57; Admin Dose 200 MG; Start 04/20/17 at 23:00 Diphenhydramine HCl (Benadryl) 25 mg Q6H PRN PO ITCHING Last administered on 01:15; Admin Dose 25 MG; Start 04/22/17 at 04:00 Doxycycline Hyclate 100 mg 100 mg BID PO Last administered on 04/25/17 08:05; Admin Dose 100 MG; Start 04/22/17 at 12:00 Meropenem/Sodium Chloride (Merrem 500mg/50 ml(Pmx)) 50 ml @ 100 mls/hr Q24H IVPB Last administered on 04/24/17 12:43; Admin Dose 100 MLS/HR; Start 04/22/17 at 12:00 Clonidine (Catapres) 0.1 mg Q4H PRN PO SBP >170 Last administered on 04/24/17 20:23; Admin Dose 0.1 MG; Start 04/22/17 at 17:00 Hydralazine HCl (Apresoline) 25 mg TID PO Last administered on 04/25/17 08:17; Admin Dose 25 MG; Start 04/22/17 at 21:00 Morphine Sulfate (morphine) 2 mg Q6 PRN IV PAIN LEVEL 6-10 Last administered on 04/24/17 03:03; Admin Dose 2 MG; Start 04/22/17 at 20:00 Acetaminophen/ Hydrocodone Bitart 1 tab 1 tab Q6H PRN PO PAIN LEVEL 6-10 Last administered on 04/24/17 05:30; Admin Dose 1 TAB; Start 04/22/17 at 20:00 Vancomycin HCl/ Sodium Chloride (Vancocin/NS) 250 ml @ 83.333 mls/ hr Q96H IVPB ; Start 04/25/17 at 16:00 REJI PABON Apr 25, 2017 11:34
[2017-04-25] MEDS: MEROPENEM 500MG/50 ML (PMX) 50 ML IVPB SCH (12:03)
[2017-04-25] MEDS ORDERED: VANCOMYCIN 1.25 GM in SOD CHLORIDE 0.9% 250 ML IVPB SCH (16:00)
--- NOTE | 2017-04-25 17:05 | CONS ---
SERA MILLER NP 04/25/17 1705: Date/Time of Note Date/Time of Note DATE: 04/25/17 TIME: 17:02 Assessment/Plan Assessment/Plan Chief Complaint/Hosp Course assessment/impression - penile pain, dysuria, fever and chills, resolving - diabetes - CAD - ESRD on HD via AVF in LUE - s/p skin grafts of LLE - PVD - R lateral malleolar ulcer with eschar - Charcot's deformity of left foot recommendations: - pending results: speciation and sensitivity of Gram negative bacteria in his urine culture, GC and chlamydia NAAT (in process) - continue empiric doxycycline for chlamydia urethritis - continue empiric meropenem for MDR-Gram negative UTI Management d/w patient, Dr. Macias, and Dr. Kern Problems: Consultation Date/Type/Reason Admit Date/Time Apr 21, 2017 at 21:38 Initial Consult Date 04/22/17 Type of Consultation: Infectious Disease Referring Provider: CHARLINE ALMENDAREZ 24 HR Interval Summary Free Text/Dictation Denies pain, SOB, n/v/d. Asking when he will be seen by Podiatry or Vascular Surgeon. Exam/Review of Systems Vital Signs Vitals Vital Signs Date Time Temp Pulse Resp B/P Pulse Ox O2 Delivery O2 Flow Rate FiO2 04/25/17 16:50 77 04/25/17 14:40 14 04/25/17 12:09 97.8 159/76 98 04/24/17 00:30 Room Air Intake and Output 04/24/17 04/24/17 04/25/17 15:00 23:00 07:00 Intake Total 950 ml Balance 950 ml Exam Constitutional: alert, obese, oriented, well developed, other (getting HD) Head: atraumatic, normocephalic Neck: supple Respiratory: clear to auscultation, normal air movement Cardiovascular: nl pulses, regular rate and rhythm Gastrointestinal: non-tender, soft Extremities: other (LUE AVF with good bruit/thrill; Charcot deformity and pointy toe nails on left foot) Neurological: nl mental status, nl speech, nl strength Skin: nl turgor, other (R lateral malleolar with ulcer/dry eschar), No rash or lesions Results Result Diagram: 04/25/17 0542 04/25/1742 Results 24 hrs Laboratory Tests Test 04/24/17 17:26 04/24/17 20:08 04/25/17 05:42 04/25/17 05:45 Bedside Glucose 126 176 White Blood Count 6.4 # Red Blood Count 3.44 L Hemoglobin 10.7 L Hematocrit 32.2 L Mean Corpuscular Volume 93.6 Mean Corpuscular Hemoglobin 31.1 Mean Corpuscular Hemoglobin Concent 33.2 Red Cell Distribution Width 14.3 Platelet Count 243 Mean Platelet Volume 9.8 Neutrophils % 52.0 Lymphocytes % 29.4 Monocytes % 11.3 H Eosinophils % 5.8 Basophils % 0.2 Nucleated Red Blood Cells % 0.0 Neutrophils # (Manual) 3.3 Lymphocytes # 1.9 Monocytes # 0.7 Eosinophils # 0.4 Basophils # 0.0 Nucleated Red Blood Cells # 0.0 Sodium Level 134 L Potassium Level 5.1 Chloride Level 94 L Carbon Dioxide Level 23 Anion Gap 22 H Blood Urea Nitrogen 80 H Creatinine 12.10 H Glucose Level 88 Calcium Level 8.9 Random Vancomycin Level 18.7 Test 04/25/17 08:02 04/25/17 11:58 Bedside Glucose 86 114 Medications Medications Current Medications Acetaminophen (Tylenol Tab) 325 mg Q4H PRN PO PAIN AND OR ELEVATED TEMP Last administered on 04/22/17 02:23; Admin Dose 325 MG; Start 04/20/17 at 13:00 Carvedilol (Coreg) 12.5 mg BID PO Last administered on 04/24/17 21:55; Admin Dose 12.5 MG; Start 04/20/17 at 21:00 Multivit/Ca Carb/ B Cmplx/FA/Prenat (Keke-Andi) 1 tab DAILY PO Last administered on 04/25/17 08:04; Admin Dose 1 TAB; Start 04/21/17 at 09:00 Sevelamer HCl (Renagel) 1,600 mg TID PO Last administered on 04/25/17 12:03; Admin Dose 1,600 MG; Start 04/20/17 at 13:00 Diagnostic Test (Pha) (Accu-Chek) 1 ea 02 XX ; Start 04/21/17 at 02:00 Miscellaneous Information 1 ea NOTE XX ; Start 04/20/17 at 17:00 Glucose (Glutose) 15 gm Q15M PRN PO DECREASED GLUCOSE; Start 04/20/17 at 17:00 Glucose (Glutose) 22.5 gm Q15M PRN PO DECREASED GLUCOSE; Start 04/20/17 at 17: 00 Dextrose (D50w Syringe) 25 ml Q15M PRN IV DECREASED GLUCOSE; Start 04/20/17 at 17:00 Dextrose (D50w Syringe) 50 ml Q15M PRN IV DECREASED GLUCOSE; Start 04/20/17 at 17:00 Glucagon (Glucagen) 1 mg Q15M PRN IM DECREASED GLUCOSE; Start 04/20/17 at 17:00 Glucose (Glutose) 15 gm Q15M PRN BUCCAL DECREASED GLUCOSE; Start 04/20/17 at 17 :00 Labetalol HCl (Normodyne) 200 mg QHS PO Last administered on 04/24/17 21:57; Admin Dose 200 MG; Start 04/20/17 at 23:00 Diphenhydramine HCl (Benadryl) 25 mg Q6H PRN PO ITCHING Last administered on 01:15; Admin Dose 25 MG; Start 04/22/17 at 04:00 Doxycycline Hyclate 100 mg 100 mg BID PO Last administered on 04/25/17 08:05; Admin Dose 100 MG; Start 04/22/17 at 12:00 Meropenem/Sodium Chloride (Merrem 500mg/50 ml(Pmx)) 50 ml @ 100 mls/hr Q24H IVPB Last administered on 04/25/17 12:03; Admin Dose 100 MLS/HR; Start 04/22/17 at 12:00 Clonidine (Catapres) 0.1 mg Q4H PRN PO SBP >170 Last administered on 04/24/17 20:23; Admin Dose 0.1 MG; Start 04/22/17 at 17:00 Hydralazine HCl (Apresoline) 25 mg TID PO Last administered on 04/25/17 08:17; Admin Dose 25 MG; Start 04/22/17 at 21:00 Morphine Sulfate (morphine) 2 mg Q6 PRN IV PAIN LEVEL 6-10 Last administered on 04/24/17 03:03; Admin Dose 2 MG; Start 04/22/17 at 20:00 Acetaminophen/ Hydrocodone Bitart ([place] (5/325)) 1 tab Q6H PRN PO PAIN LEVEL 6 -10 Last administered on 04/24/17t 05:30; Admin Dose 1 TAB; Start 04/22/17 at 20: 00 NATTY KERN M.D. 04/26/172051: Assessment/Plan Assessment/Plan Additional Assessment/Plan Erlin attestation: I discussed the management with CHRIS Miller and agree with above Exam/Review of Systems Results Result Diagram: 04/25/17 0542 04/25/17 0542 SERA MILLER NP Apr 25, 2017 17:05 NATTY KERN M.D. Apr 26, 2017 20:52
--- NOTE | 2017-04-25 17:16 | CONS ---
Date/Time of Note Date/Time of Note DATE: 04/25/17 TIME: 17:15 Assessment/Plan Assessment/Plan Additional Assessment/Plan 1. GNR urinary tract infection. 2. End-stage renal disease, hemodialysis dependent. 3. Hyperkalemia. 4. Diabetes mellitus. 5. Hypertension. 6. Right malleolar wound with black eschar. 7. Anemia. ON HD stable, cont current treatment MWF schedule Cont to monitor electrolytes, volume status. Dose Abx rx to ESRD. Consultation Date/Type/Reason Admit Date/Time Apr 21, 2017 at 21:38 Initial Consult Date 04/20/17 Type of Consultation: Renal Referring Provider: CHARLINE ALMENDAREZ 24 HR Interval Summary Free Text/Dictation Seen and examined on HD, no new complaints Constitutional: No requiring O2 Exam/Review of Systems Vital Signs Vitals Vital Signs Date Time Temp Pulse Resp B/P Pulse Ox O2 Delivery O2 Flow Rate FiO2 04/25/17 17:13 98.1 63 19 176/80 97 04/24/17 00:30 Room Air Intake and Output 04/24/17 04/24/17 04/25/17 15:00 23:00 07:00 Intake Total 950 ml Balance 950 ml Exam Constitutional: No distress ENMT: mucosa pink and moist Neck: No jvd Respiratory: No labored breathing Cardiovascular: No edema Extremities: No edema Neurological: DOLL WIGS HACKLER II-XII intact, nl mental status Results Result Diagram: 04/25/17 0542 04/25/17 0542 Results 24 hrs Laboratory Tests Test 04/24/17 17:26 04/24/17 20:08 04/25/17 05:42 04/25/17 05:45 Bedside Glucose 126 176 White Blood Count 6.4 # Red Blood Count 3.44 L Hemoglobin 10.7 L Hematocrit 32.2 L Mean Corpuscular Volume 93.6 Mean Corpuscular Hemoglobin 31.1 Mean Corpuscular Hemoglobin Concent 33.2 Red Cell Distribution Width 14.3 Platelet Count 243 Mean Platelet Volume 9.8 Neutrophils % 52.0 Lymphocytes % 29.4 Monocytes % 11.3 H Eosinophils % 5.8 Basophils % 0.2 Nucleated Red Blood Cells % 0.0 Neutrophils # (Manual) 3.3 Lymphocytes # 1.9 Monocytes # 0.7 Eosinophils # 0.4 Basophils # 0.0 Nucleated Red Blood Cells # 0.0 Sodium Level 134 L Potassium Level 5.1 Chloride Level 94 L Carbon Dioxide Level 23 Anion Gap 22 H Blood Urea Nitrogen 80 H Creatinine 12.10 H Glucose Level 88 Calcium Level 8.9 Random Vancomycin Level 18.7 Test 04/25/17 08:02 04/25/17 11:58 Bedside Glucose 86 114 Medications Medications Current Medications Acetaminophen (Tylenol Tab) 325 mg Q4H PRN PO PAIN AND OR ELEVATED TEMP Last administered on 04/22/17 02:23; Admin Dose 325 MG; Start 04/20/17 at 13:00 Carvedilol (Coreg) 12.5 mg BID PO Last administered on 04/24/17 21:55; Admin Dose 12.5 MG; Start 04/20/17 at 21:00 Multivit/Ca Carb/ B Cmplx/FA/Prenat (Keke-Andi) 1 tab DAILY PO Last administered on 04/25/17 08:04; Admin Dose 1 TAB; Start 04/21/17 at 09:00 Sevelamer HCl (Renagel) 1,600 mg TID PO Last administered on 04/25/17 12:03; Admin Dose 1,600 MG; Start 04/20/17 at 13:00 Diagnostic Test (Pha) (Accu-Chek) 1 ea 02 XX ; Start 04/21/17 at 02:00 Miscellaneous Information 1 ea NOTE XX ; Start 04/20/17 at 17:00 Glucose (Glutose) 15 gm Q15M PRN PO DECREASED GLUCOSE; Start 04/20/17 at 17:00 Glucose (Glutose) 22.5 gm Q15M PRN PO DECREASED GLUCOSE; Start 04/20/17 at 17: 00 Dextrose (D50w Syringe) 25 ml Q15M PRN IV DECREASED GLUCOSE; Start 04/20/17 at 17:00 Dextrose (D50w Syringe) 50 ml Q15M PRN IV DECREASED GLUCOSE; Start 04/20/17 at 17:00 Glucagon (Glucagen) 1 mg Q15M PRN IM DECREASED GLUCOSE; Start 04/20/17 at 17:00 Glucose (Glutose) 15 gm Q15M PRN BUCCAL DECREASED GLUCOSE; Start 04/20/17 at 17 :00 Labetalol HCl (Normodyne) 200 mg QHS PO Last administered on 04/24/17 21:57; Admin Dose 200 MG; Start 04/20/17 at 23:00 Diphenhydramine HCl (Benadryl) 25 mg Q6H PRN PO ITCHING Last administered on 01:15; Admin Dose 25 MG; Start 04/22/17 at 04:00 Doxycycline Hyclate 100 mg 100 mg BID PO Last administered on 04/25/17 08:05; Admin Dose 100 MG; Start 04/22/17 at 12:00 Meropenem/Sodium Chloride (Merrem 500mg/50 ml(Pmx)) 50 ml @ 100 mls/hr Q24H IVPB Last administered on 04/25/17 12:03; Admin Dose 100 MLS/HR; Start 04/22/17 at 12:00 Clonidine (Catapres) 0.1 mg Q4H PRN PO SBP >170 Last administered on 04/24/17 20:23; Admin Dose 0.1 MG; Start 04/22/17 at 17:00 Hydralazine HCl (Apresoline) 25 mg TID PO Last administered on 04/25/17 08:17; Admin Dose 25 MG; Start 04/22/17 at 21:00 Morphine Sulfate (morphine) 2 mg Q6 PRN IV PAIN LEVEL 6-10 Last administered on 04/24/17 03:03; Admin Dose 2 MG; Start 04/22/17 at 20:00 Acetaminophen/ Hydrocodone Bitart ([place] (5/325)) 1 tab Q6H PRN PO PAIN LEVEL 6 -10 Last administered on 04/24/17 05:30; Admin Dose 1 TAB; Start 04/22/17 at 20: 00 ADAM DUVAL MD Apr 25, 2017 17:16
--- NOTE | 2017-04-25 18:52 | PN ---
Date/Time of Note Date/Time of Note DATE: 04/25/17 TIME: 18:48 Assessment/Plan Lines/Catheters IV Catheter Type (from [facility]): Saline Lock [place] in Place (from [facility]): No Assessment/Plan Chief Complaint/Hosp Course -Right lower extremity atherosclerosis with a right malleolar ulcer: Recently the patient had developed a diabetic foot infection in addition to developing an ulcer on the lateral malleolar that likely contributed to his diabetes more so than atherosclerotic disease. At the moment patient does have palpable pedal pulse. No need for vascular surgery intervention. -Will follow the progress of the wound with our podiatry colleagues -Would recommend continue with antibiotics for now -Optimize vascular status (blood pressure medications, diet, nutrition, exercise , sugar control, antiplatelets). -Discussed findings, plan and management with the patient a certified care transport nurse and he understands. -Thank you for allowing us to partake in the care of your patient. Please call with any questions. Problems: Subjective 24 Hr Interval Summary no new vascular events overnight Exam/Review of Systems Vital Signs Vitals Vital Signs Date Time Temp Pulse Resp B/P Pulse Ox O2 Delivery O2 Flow Rate FiO2 04/25/17 17:40 75 04/25/17 17:40 14 04/25/17 17:13 98.1 176/80 97 04/24/17 00:30 Room Air Intake and Output 04/24/17 04/24/17 04/25/17 15:00 23:00 07:00 Intake Total 950 ml Balance 950 ml Exam Free Text/Dictation GENERAL APPEARANCE: Alert, oriented x3. LUNGS: Clear to auscultation bilaterally CARDIOVASCULAR: S1, S2 presen ABDOMEN: Soft, nontender, nondistended. Bowel sounds positive. Truncal obesity. EXTREMITIES: -Right lower extremity, palpable femoral pulse. Palpable pedal pulse. Motor sensory intact. Capillary refill 2-3 seconds. There is a lateral malleolar ulcer with eschar and surrounding erythema -Left lower extremity, palpable femoral pulse. Palpable pedal pulse. Motor sensory intact. Capillary refill 2-3 seconds. Previous skin graft that well healed on the dorsal aspect of the forefoot. -Left upper extremity has palpable brachial pulse. Motor sensory intact. Capillary refill 2 seconds. Fistula with bruit and thrill present. Previous surgical scar that is well healed. 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
[2017-04-25] MEDS: LABETALOL 200 MG TAB PO SCH (21:03)
[2017-04-26] VITALS (9 sets, daily range): BP systolic 130–152; BP diastolic 66–72; PULSE 62–66; RESP 18–19
[2017-04-26] MEDS: DIPHENHYDRAMINE 25 MG CAP PO PRN (00:30)
[2017-04-26] MEDS: ACCU-CHEK XX SCH (02:17)
[2017-04-26] MEDS: CALCIUM ACETATE 667 MG CAP PO SCH ×3 (07:16→17:35)
[2017-04-26] MEDS: INSULIN ASPART [NOVOLOG] 3 ML PEN SC SCH ×3 (07:17→17:35)
--- NOTE | 2017-04-26 08:55 | RADRPT ---
PROCEDURE: US Lower extremity arterial, bilateral CLINICAL INDICATION: Peripheral arterial disease, lower extremity ulcer TECHNIQUE: Multiple sonographic images of the bilateral lower extremity arteries was obtained util izing grayscale, color-flow and doppler imaging. The images were reviewed on a PACS workstation. COMPARISON: None. FINDINGS: Prominent calcifications of the bilateral lower extremity arteries are noted, particularly the infra popliteal arteries. Velocities and waveforms were obtained as described below. RIGHT LEG: Right common femoral artery: 110 cm/s; triphasic waveforms Right profunda femoral artery: 111 cm/s; biphasic waveforms Right proximal superficial femoral artery: 126 cm/s; biphasic waveforms Right mid superficial femoral artery: 135 cm/s; triphasic waveforms Right distal superficial femoral artery: 143 cm/s; triphasic waveforms Right popliteal artery: 103 cm/s; triphasic waveforms Right posterior tibial artery: 96 cm/s; biphasic waveforms Right dorsalis pedis artery: 115 cm/s; biphasic waveforms Right JUANY: 1.32 LEFT LEG: Left common femoral artery: 118 cm/s; triphasic waveforms Left profunda femoral artery: 73 cm/s; biphasic waveforms Left proximal superficial femoral artery: 143 cm/s; triphasic waveforms Left mid superficial femoral artery: 133 cm/s; triphasic waveforms Left distal superficial femoral artery: 112 cm/s; triphasic waveforms Left popliteal artery: 100 cm/s; triphasic waveforms Left posterior tibial artery: 122 cm/s; triphasic waveforms Left dorsalis pedis artery: 156 cm/s; monophasic waveforms Left JUANY: 1.35 RPTAT: AA IMPRESSION: Mildly elevated velocity and monophasic wave forms in the left dorsalis pedis artery suggest mild st enosis. Scattered biphasic waveforms in the right lower extremity, likely due to small vessel disease. Elevated ABIs bilaterally are likely at least in part due to prominent calcifications in primarily t he infrapopliteal arteries. Physician Imani Date Time Electronically viewed and signed by Prashanth Casey Physician on 04/26/2017 08:55 /
[2017-04-26] MEDS: MULTIVIT/CA CARB/B CMPLX/FA TAB PO SCH (08:59)
[2017-04-26] MEDS: DOXYCYCLINE 100 MG TAB PO SCH (08:59)
[2017-04-26] MEDS: SEVELAMER 800 MG TAB PO SCH ×2 (08:59→12:28)
--- NOTE | 2017-04-26 10:39 | PN ---
Date/Time of Note Date/Time of Note DATE: 04/26/17 TIME: 10:39 Assessment/Plan VTE Prophylaxis VTE Prophylaxis Intervention: other Lines/Catheters IV [facility] Urinary Cath still in place: No Assessment/Plan Assessment/Plan 1. Possible urinary tract infection. - per Dr Kern from infectious disease consultation. 2. End-stage renal disease, hemodialysis dependent. - Dr. De Santiago in Nephrology consultation. - on hemodialysis. 3. Hyperkalemia. Continue hemodialysis. 4. Diabetes mellitus. Will continue Lantus and NovoLog. 5. Hypertension. 6. Right malleolar wound with black eschar. Will ask to see patient in vascular surgery consultation and to see patient in podiatry consultation. 7. Anemia. We will continue to monitor hemoglobin and hematocrit. No indication for transfusion at this time. 8. Continue heparin for deep venous thrombosis prophylaxis and 9. Pepcid for peptic ulcer disease prophylaxis. Further recommendations based on clinical course. Plan of care discussed with Dr. Casiano. Subjective 24 Hr Interval Summary Respiratory: no complaints Cardiovascular: no complaints Gastrointestinal: no complaints Genitourinary: no complaints Musculoskeletal: bone/joint pain Skin: other Exam/Review of Systems Vital Signs Vitals Vital Signs Date Time Temp Pulse Resp B/P Pulse Ox O2 Delivery O2 Flow Rate FiO2 04/26/17 08:00 62 04/26/17 07:56 98.3 18 152/69 97 04/24/17 00:30 Room Air Intake and Output 04/25/17 04/25/17 04/26/17 15:00 23:00 07:00 Intake Total 100 ml 900 ml 300 ml Output Total 2900 ml Balance 100 ml -2000 ml 300 ml Exam Constitutional: alert Respiratory: clear to auscultation, normal air movement Cardiovascular: nl pulses, regular rate and rhythm Gastrointestinal: non-tender, soft Extremities: other Neurological: nl speech Results Result Diagram: 04/25/17 0542 04/25/17 0542 Results 24 hrs Laboratory Tests Test 04/25/17 11:58 04/25/17 17:28 04/25/17 18:10 04/25/17 21:00 Bedside Glucose 114 163 148 199 Test 04/26/17 02:10 04/26/17 07:16 Bedside Glucose 109 101 Medications Medications Current Medications Acetaminophen (Tylenol Tab) 325 mg Q4H PRN PO PAIN AND OR ELEVATED TEMP Last administered on 04/22/17 02:23; Admin Dose 325 MG; Start 04/20/17 at 13:00 Carvedilol (Coreg) 12.5 mg BID PO Last administered on 04/26/17 08:59; Admin Dose 12.5 MG; Start 04/20/17 at 21:00 Multivit/Ca Carb/ B Cmplx/FA/Prenat (Keke-Andi) 1 tab DAILY PO Last administered on 04/26/17 08:59; Admin Dose 1 TAB; Start 04/21/17 at 09:00 Sevelamer HCl (Renagel) 1,600 mg TID PO Last administered on 04/26/17 08:59; Admin Dose 1,600 MG; Start 04/20/17 at 13:00 Diagnostic Test (Pha) (Accu-Chek) 1 ea 02 XX Last administered on 04/26/17 02: 17; Admin Dose 1 EA; Start 04/21/17 at 02:00 Miscellaneous Information 1 ea NOTE XX ; Start 04/20/17 at 17:00 Glucose (Glutose) 15 gm Q15M PRN PO DECREASED GLUCOSE; Start 04/20/17 at 17:00 Glucose (Glutose) 22.5 gm Q15M PRN PO DECREASED GLUCOSE; Start 04/20/17 at 17: 00 Dextrose (D50w Syringe) 25 ml Q15M PRN IV DECREASED GLUCOSE; Start 04/20/17 at 17:00 Dextrose (D50w Syringe) 50 ml Q15M PRN IV DECREASED GLUCOSE; Start 04/20/17 at 17:00 Glucagon (Glucagen) 1 mg Q15M PRN IM DECREASED GLUCOSE; Start 04/20/17 at 17:00 Glucose (Glutose) 15 gm Q15M PRN BUCCAL DECREASED GLUCOSE; Start 04/20/17 at 17 :00 Labetalol HCl (Normodyne) 200 mg QHS PO Last administered on 04/25/17 21:03; Admin Dose 200 MG; Start 04/20/17 at 23:00 Diphenhydramine HCl (Benadryl) 25 mg Q6H PRN PO ITCHING Last administered on 00:30; Admin Dose 25 MG; Start 04/22/17 at 04:00 Doxycycline Hyclate 100 mg 100 mg BID PO Last administered on 04/26/17 08:59; Admin Dose 100 MG; Start 04/22/17 at 12:00 Meropenem/Sodium Chloride (Merrem 500mg/50 ml(Pmx)) 50 ml @ 100 mls/hr Q24H IVPB Last administered on 04/25/17 12:03; Admin Dose 100 MLS/HR; Start 04/22/17 at 12:00 Clonidine (Catapres) 0.1 mg Q4H PRN PO SBP >170 Last administered on 04/24/17 20:23; Admin Dose 0.1 MG; Start 04/22/17 at 17:00 Hydralazine HCl (Apresoline) 25 mg TID PO Last administered on 04/26/17 08:58; Admin Dose 25 MG; Start 04/22/17 at 21:00 Morphine Sulfate (morphine) 2 mg Q6 PRN IV PAIN LEVEL 6-10 Last administered on 04/24/17 03:03; Admin Dose 2 MG; Start 04/22/17 at 20:00 Acetaminophen/ Hydrocodone Bitart (Cliff (5/325)) 1 tab Q6H PRN PO PAIN LEVEL 6 -10 Last administered on 04/24/17 05:30; Admin Dose 1 TAB; Start 04/22/17 at 20: 00 ALEXI BRANDON Apr 26, 2017 10:39
[2017-04-26] MEDS: MEROPENEM 500MG/50 ML (PMX) 50 ML IVPB SCH (12:27)
--- NOTE | 2017-04-26 15:30 | PDOCDIS ---
Discharge Instructions CONDITION Patient Condition: Stable HOME CARE INSTRUCTIONS: Diet Instructions: RegularSpecial Diet: Carbs controlled diet ACTIVITY: Activity Restrictions: Slowly Increase Activity Rest between Activity Avoid heavy lifting Do not operate Machinery Do not operate Power Tool Avoid Heavy Housework Bathing Restrictions: Sponge Bath FOLLOW UP/APPOINTMENTS Follow-up Plan FU with Primary MDx 1 week Fu WITH Vascular surgery As recommended. Call 911 or go to the nearest hospital if symptoms worsen. Patient verbalized understanding dc instructions. virgilio Casiano/ staff. ALEXI BRANDON Apr 26, 2017 15:30
[2017-04-26] MEDS ORDERED: CLON0.1T14 PO (15:41)
[2017-04-26] MEDS ORDERED: LEVO500T72 PO (15:41)
[2017-04-26] MEDS ORDERED: HYDR-3671 PO (15:41)
== END 2017-04-26 17:35 | disposition home or self-care (01) | DRG 689 ==
LOC: E/R 02:26 → MS3 09:00 → INTOOBSV 09:00 → OBSVTOIN 04-21 21:38 → MS4 04-21 22:59
PROVIDERS: ADMIT Internal Medicine; ATTEND Internal Medicine
PROC: 5A1D60Z (ICD-10-PCS; principal; 2017-04-20)
DX: N39.0 Urinary tract infection, site not specified (principal); N18.6 End stage renal disease; E10.22 Type 1 diabetes mellitus with diabetic chronic kidney disease; I12.0 Hypertensive chronic kidney disease with stage 5 chronic kidney disease or end stage renal disease; L97.319 Non-pressure chronic ulcer of right ankle with unspecified severity; E10.65 Type 1 diabetes mellitus with hyperglycemia; Z99.2 Dependence on renal dialysis; Z79.4 Long term (current) use of insulin; E10.621 Type 1 diabetes mellitus with foot ulcer; H54.42 Blindness, left eye, normal vision right eye; D63.8 Anemia in other chronic diseases classified elsewhere; I25.10 Atherosclerotic heart disease of native coronary artery without angina pectoris; E10.40 Type 1 diabetes mellitus with diabetic neuropathy, unspecified; E10.51 Type 1 diabetes mellitus with diabetic peripheral angiopathy without gangrene; E87.5 Hyperkalemia; I70.233 Atherosclerosis of native arteries of right leg with ulceration of ankle; E10.610 Type 1 diabetes mellitus with diabetic neuropathic arthropathy; B96.89 Other specified bacterial agents as the cause of diseases classified elsewhere; Z16.24 Resistance to multiple antibiotics; L97.529 Non-pressure chronic ulcer of other part of left foot with unspecified severity; L97.519 Non-pressure chronic ulcer of other part of right foot with unspecified severity
CPT/HCPCS: 36415; 71010; 74176; 80048; 80053; 80202; 81001; 82962; 83605; 84484; 85025; 85610; 85730; 86803; 87040; 87086; 87340; 87591; 90935; 93005; 93922; 96374; 96375; G0378; J0692; J1815; J2185; J2270; J3370; J7050